=== PATIENT | female | born 1960 | race Caucasian/White ===

== ENCOUNTER → 2017-07-14 | Outpatient (CLI) | payer BC ==
--- NOTE | 2017-07-16 09:47 | MM ---
Reason for exam: screening (asymptomatic). Last mammogram was performed 1 year ago. Physical Findings: A clinical breast exam by your physician is recommended on an annual basis and results should be correlated with mammographic findings. MG Screening Mammo w CAD Bilateral CC and MLO view(s) were taken. Prior study comparison: July 12, 2016, bilateral MG screening mammo w CAD. July 10, 2015, bilateral MG screening mammo w CAD. There are scattered fibroglandular densities. No significant changes when compared with prior studies. ASSESSMENT: Negative, BI-RAD 1 RECOMMENDATION: Routine screening mammogram of both breasts in 1 year.
== END | disposition home or self-care (01) ==
LOC: RADMAMWWP 08:27
PROVIDERS: ATTEND Obstetrics & Gynecology
DX: Z12.31 Encounter for screening mammogram for malignant neoplasm of breast (principal)

== ENCOUNTER → 2018-04-13 | Outpatient (CLI) | payer BC ==
--- NOTE | 2018-04-13 11:26 | CT ---
"EXAMINATION TYPE: CT chest abdomen w con DATE OF EXAM: 04/13/2018 COMPARISON: 08/06/2012 HISTORY: Chronic cough and Rt flank pain CT DLP: 1872.3 mGycm. Automated Exposure Control for Dose Reduction was Utilized. CONTRAST: CT scan of the thorax and abdomen is performed with IV Contrast, patient injected with 100 mL of Isov ue 300. FINDINGS: LUNGS: There is a small loculated pleural effusion versus focal pleural thickening posteriorly along the right upper lobe with thickness measuring 9 mm. There are stable pulmonary nodules on series 5 im age 30 and 26 dating back to 2011, therefore this should be considered benign. No focal consolidation . There is no pleural effusion or pneumothorax seen. The tracheobronchial tree is patent. MEDIASTINUM: There are no greater than 1 cm hilar or mediastinal lymph nodes. No pericardial effusi on is seen. LIVER/GB: There is a new solitary peripherally lobulated complex hepatic mass extending from the hepa tic dome in segment 7 and 8 inferiorly to involve segment 6. There are multiple internal septations a nd solid nodule at the inferior right lateral periphery. This measures up to 6.4 x 6.7 x 8.9 cm in tr ansverse by anterior posterior by craniocaudal dimension. No other appreciable hepatic masses are see n, however there is background hypoattenuation of the hepatic parenchyma diffusely thickened be seen in hepatocellular disease or hepatic steatosis. More focal fatty infiltration is present near the fal ciform ligament. Gallbladder surgically absent. There is no current evidence of large caliber vessel thrombosis. PANCREAS: Mild pancreatic parenchymal atrophy is seen without ductal dilatation. SPLEEN: Nonspecific subcentimeter hypoattenuated splenic lesions are noted, 3 in number. The largest measures 8 mm on series 3 image 60. Small splenule is present anterior to the nenana spleen on series 3 image 49. ADRENALS: No nodularity or thickening is seen. KIDNEYS: Kidneys enhance and excrete symmetrically without hydronephrosis. BOWEL: Few scattered diverticula are noted. No large or small bowel dilatation. LYMPH NODES: Portacaval adenopathy is noted as portacaval lymph nodes measure up to 2.0 cm in short a xis additionally there is aortocaval adenopathy measuring up to 1.1 cm. Gastrohepatic ligament adenop athy measures up to 1.0 cm and there are few prominent lymph nodes in the posterior inferior mediasti nal measuring up to 8 mm. OSSEOUS STRUCTURES: Mild degenerative changes with no suspicious osseous lesion identified. OTHER: There is moderate calcific atheromatous change of the abdominal aorta and its branches. Abdomi nal aorta remains of normal course and caliber in its visualized portions. There is a small fat fille d umbilical hernia superimposed upon diastases recti. IMPRESSION: 1. New large complex solitary right hepatic lobe lesion that should be considered neoplasm until prov en otherwise. Consideration should be given to hepatocellular carcinoma with correlation of serum alp de paz-fetoprotein. Additionally enhanced MRI could further characterize this mass and further degree of confidence could be provided with more accurate LI-RADS classification. Alternatively solitary metast asis from sources such as colon carcinoma, complex adenoma, or infectious etiology (correlate with CB C) could produce this finding. 2. Periportal, aortocaval/retroperitoneal, and gastrohepatic ligament adenopathy with few prominent p osterior mediastinal lymph nodes. A Yellow level critical message alert has been initiated for Santo Sarmiento MD via the [employer] 36 0 | Critical Results System on 04/13/2018 11:17 AM. This message alert has been sent to Santo Sarmiento MD via the preferences provided by the clinician for the receipt of Radiology Critical Findings. [facility] ID [id number]."
== END ==
LOC: RADCTMAIN 08:08
PROVIDERS: ATTEND Family Medicine
DX: K76.9 Liver disease, unspecified (principal); R59.9 Enlarged lymph nodes, unspecified; R05 Cough; R10.9 Unspecified abdominal pain
CPT/HCPCS: 71260; 74160; Q9967

== ENCOUNTER 2018-06-05 10:59 | Day surgery (SDC) | payer BC ==
[2018-06-02 09:32] VITALS: BMI 37.9
[~2018-06-05 10:59] MED LIST: LACTATED RINGERS 1,000 ML IV SCH; LIDOCAINE 1% 20 ML VIAL (10MG/ML) FOR IV START INTRADERMA PRN; Pre Op ABX Message 1 EACH MISC MISCELLANE ONE
--- NOTE | 2018-06-05 11:25 | P.GSHP ---
History of Present Illness H&P Date: 06/05/18 Chief Complaint: Bile duct cancer 57-year-old female here today for Port-A-Cath placement. Recent diagnosis of bile duct cancer. Starting chemotherapy on 06/15. She has not had a previous port. Past Medical History Past Medical History: Cancer, GERD/Reflux, Hypertension, Thyroid Disorder Additional Past Medical History / Comment(s): hemorrhoids, slight scoliosis with back pain, experiencing dry heaves, sarcoidosis, IT band syndrome ab legs , sinus infection currently taking antibiotics History of Any Multi-Drug Resistant Organisms: None Reported Past Surgical History: Cholecystectomy, Tonsillectomy, Tubal Ligation Additional Past Surgical History / Comment(s): abdominal surgery to remove tumor unable to remove at this time, liver biopsy, colonoscopies Past Anesthesia/Blood Transfusion Reactions: No Reported Reaction Smoking Status: Former smoker - Past Family History Sister(s) Family Medical History: Blood Disorder, Pulmonary Embolus Additional Family Medical History / Comment(s): MTHFR Mother Family Medical History: Blood Disorder, Deep Vein Thrombosis (DVT), Pulmonary Embolus Additional Family Medical History / Comment(s): MTHFR Medications and Allergies Home Medications Medication Instructions Recorded Confirmed Type Levothyroxine Sodium 137 mcg PO DAILY 06/02/18 06/02/18 History Metoprolol Tartrate 25 mg PO HS 06/02/18 06/02/18 History Allergies Allergy/AdvReac Type Severity Reaction Status Date / Time sulfamethoxazole Allergy Anaphylaxis Verified 06/02/18 09:08 [From Bactrim] trimethoprim [From Bactrim] Allergy Anaphylaxis Verified 06/02/18 09:08 Surgical - Exam Physical exam: General: Well-developed, well-nourished HEENT: Normocephalic, sclerae nonicteric Abdomen: Nontender, nondistended, midline incision noted Extremities: No edema Neuro: Alert and oriented Assessment and Plan (1) Bile duct cancer Narrative/Plan: Will proceed with Port-A-Cath placement. Risks of bleeding, infection, DVT, pneumothorax, catheter malfunction, anesthesia related complications were discussed. The patient understands and wishes to proceed. Current Visit: Yes Status: Acute Code(s): C24.0 - MALIGNANT NEOPLASM OF EXTRAHEPATIC BILE DUCT SNOMED Code(s): 535451926
[2018-06-05 11:42] VITALS: RESP 16
[2018-06-05] MEDS ORDERED: ONDANSETRON 4 MG/2 ML VIAL IVP ONE (12:13)
[2018-06-05] MEDS ORDERED: HEPARIN SODIUM,PORCINE 5,000 UNIT/ML 1 ML VIAL SQ ONE (12:14)
[2018-06-05] MEDS ORDERED: DEXAMETHASONE SOD PHOSPHATE 10 MG/ML 1 ML VIAL IV ONE (12:14)
[2018-06-05] MEDS ORDERED: ceFAZolin IN SWFI 2 GM/20 ML SYRINGE IVP ONE (12:16)
[2018-06-05] MEDS ORDERED: MIDAZOLAM 2 MG/2 ML VIAL ONE (12:43)
[2018-06-05] MEDS ORDERED: PROPOFOL 10 MG/ML 20 ML VIAL IV ONE (12:43)
[2018-06-05] MEDS ORDERED: fentaNYL (PF) 50 MCG/ML 2 ML AMP ONE (12:43)
[2018-06-05] MEDS ORDERED: LIDOCAINE 1% INJ 10MG/ML (20 ML MDV) ONE (12:43)
[2018-06-05] MEDS ORDERED: LIDOCAINE (PF) 10 MG/ML 2 ML VIAL SQ ONE (13:11)
[2018-06-05] MEDS ORDERED: HEPARIN SODIUM,PORCINE 100 UNIT/ML 5 ML VIAL IV ONE (13:23)
[2018-06-05] MEDS ORDERED: NALOXONE 0.4 MG/ML 1 ML VIAL IV PRN (14:01)
--- NOTE | 2018-06-05 14:02 | P.OP ---
Date of Procedure: 06/05/18 Procedure(s) Performed: PREOPERATIVE DIAGNOSIS: Malnutrition POSTOPERATIVE DIAGNOSIS: Same PROCEDURE: EGD with PEG tube placement SURGEON: Lani EBL: Minimal ANESTHESIA: Sedation COMPLICATIONS: None OPERATIVE PROCEDURE: The patient was placed in the supine position on the endoscopy table. The patient was sedated per anesthesia that time. The Olympus gastroscope was inserted into the oropharynx and passed under direct visualization to the region of the duodenum. No obstruction was seen. The pylorus was widely patent. The stomach was carefully inspected. The stomach was fully insufflated with air. The abdominal wall was inspected. The light was seen shining through the abdominal wall in the left upper quadrant. This site was chosen for PEG tube placement. The area was prepped in the usual sterile fashion. This area was then localized with lidocaine. A small vertical incision was made using the scalpel. The Seldinger needle was advanced into the lumen of the stomach the wire was advanced. The wire was grasped with an endoscopic snare. The wire was pulled through the oropharynx. The catheter was then threaded over the guidewire and the guidewire and catheter were pulled anteriorly until the hub of the PEG tube catheter was seated against the anterior wall the stomach. The circular bolster was applied and tightened down. The endoscope was then readvanced into the stomach. There was no evidence of any bleeding and there was appropriate tightness on the bolster. The catheter was cut appropriately. The dual port feeding adapter was applied. DISPOSITION: Stable to recovery room
[2018-06-05 14:26] VITALS: BP 118/75; PULSE 98
--- NOTE | 2018-06-05 14:36 | XR ---
EXAMINATION TYPE: XR chest 1V confirm line cox monett DATE OF EXAM: 06/05/2018 COMPARISON: Prior chest x-ray 06/16/2012 HISTORY: Status post central venous catheter placement TECHNIQUE: Single frontal view of the chest is obtained. FINDINGS: Interval placement of a right-sided Port-A-Cath with the distal tip overlying superior romelia a cava, there is a right jugular approach. No evident pneumothorax. There is increased density at the right lung base. Right hemidiaphragm. Patient is rotated, heart size is likely stable. IMPRESSION: Right pleural effusion and associated atelectasis or pneumonia has developed in the inte rval, no evident pneumothorax status post central venous catheter placement.
[2018-06-05 15:04] VITALS: TEMP 98.3
--- NOTE | 2018-06-05 16:23 | FL ---
Fluoroscopy HISTORY: Central venous catheter placement 18 seconds fluoroscopy time supplied to the referring clinician. 1 intraoperative C-arm images docum ent the procedure. See dictated report from general surgery.
== END 2018-06-05 15:21 | disposition home or self-care (01) ==
LOC: OR 10:59
PROVIDERS: ATTEND Surgery
DX: C24.0 Malignant neoplasm of extrahepatic bile duct (principal); J90 Pleural effusion, not elsewhere classified; E03.9 Hypothyroidism, unspecified; D86.9 Sarcoidosis, unspecified; K21.9 Gastro-esophageal reflux disease without esophagitis; I10 Essential (primary) hypertension; M41.9 Scoliosis, unspecified; Z79.890 Hormone replacement therapy; Z79.899 Other long term (current) drug therapy; Z79.1 Long term (current) use of non-steroidal anti-inflammatories (NSAID); Z88.1 Allergy status to other antibiotic agents; Z88.2 Allergy status to sulfonamides; Z98.51 Tubal ligation status; Z90.49 Acquired absence of other specified parts of digestive tract; Z87.891 Personal history of nicotine dependence
CPT/HCPCS: 77001; 36561; C1788; J2250; J2001 ×2; J1644; J1642; J1100; J2405; J3010; J2704; J0690

== ENCOUNTER 2018-06-13 14:05 | Inpatient (IN) | payer BC ==
[2018-06-13 15:02] LABS: Anisocytosis Slight; Basophils % (A) 0 %; Eosinophils # (A) 0.2 k/uL (0-0.7); Eosinophils % (A) 1 %; HCT 37.7 % (34.0-46.0); HGB 11.3 gm/dL (11.4-16.0); Hypochromasia Marked; Lymphocytes # (A) 1.2 k/uL (1.0-4.8); Lymphocytes % (A) 6 %; MCH 23.5 pg (25.0-35.0); MCV 78.5 fL (80.0-100.0); Mean Platelet Volume 6.7; Microcytosis Slight; Monocytes # (A) 0.5 k/uL (0-1.0); Monocytes % (A) 3 %; Neutrophils # (A) 17.3 k/uL (1.3-7.7); Neutrophils % (A) 89 %; Platelet Count 525 k/uL (150-450); RBC 4.81 m/uL (3.80-5.40); RDW 17.5 % (11.5-15.5); WBC 19.4 k/uL (3.8-10.6)
[2018-06-13 15:12] LABS: INR 1.3 (<1.2); Partial Thromboplastin Time 22.2 sec (22.0-30.0); Prothrombin Time 12.3 sec (9.0-12.0)
[2018-06-13 15:22] LABS: Creatine Kinase <20 U/L (30-135)
[2018-06-13 15:24] LABS: ALT 29 U/L (9-52); AST 43 U/L (14-36); Albumin 2.9 g/dL (3.5-5.0); Alkaline Phosphatase 179 U/L (38-126); Anion Gap 12 mmol/L; Blood Urea Nitrogen 14 mg/dL (7-17); Calcium 8.6 mg/dL (8.4-10.2); Carbon Dioxide 24 mmol/L (22-30); Chloride 99 mmol/L (98-107); Glucose 138 mg/dL (74-99); Potassium 4.4 mmol/L (3.5-5.1); Sodium 135 mmol/L (137-145); Total Protein 6.8 g/dL (6.3-8.2)
[2018-06-13 15:34] LABS: Creatine Kinase MB <0.2 ng/mL (0.0-2.4); Troponin I <0.012 ng/mL (0.000-0.034)
--- NOTE | 2018-06-13 15:41 | XR ---
EXAMINATION TYPE: XR chest 2V DATE OF EXAM: 06/13/2018 COMPARISON: 06/05/2018 HISTORY: Shortness of breath TECHNIQUE: Frontal and lateral views of the chest are obtained. FINDINGS: There is a persistent moderate right pleural effusion and trace left pleural effusion with associated bibasilar airspace disease, likely compressive atelectasis. Cardia mediastinal silhouette is obscured but similar to the prior. Right-sided Mediport is unchanged in position. Osseous structu res appear intact. IMPRESSION: Similar exam to the prior of 05/28/2018 with moderate right pleural effusion and small le ft pleural effusion and associated bibasilar airspace disease, likely atelectasis.
--- NOTE | 2018-06-13 15:57 | CT ---
EXAMINATION TYPE: CT angio chest DATE OF EXAM: 06/13/2018 COMPARISON: NONE HISTORY: Shortness of breath, history of cancer. CT DLP: 298.7 mGycm. Automated Exposure Control for Dose Reduction was Utilized. CONTRAST: CTA scan of the thorax is performed with IV Contrast, patient injected with 55 mL of Isovue 370, pulm onary embolism protocol. MIP Images are created on CT scanner and reviewed. FINDINGS: LUNGS: There is a moderate right pleural effusion with associated compressive atelectasis. Remainder the lungs are grossly clear. MEDIASTINUM: There is satisfactory enhancement of the pulmonary artery and its branches. There are n onocclusive emboli to the left lower lobe, left upper lobe, and right lower lobe. Beginning in the ri ght and left main pulmonary artery extending to the segmental and subsegmental branches of these lobe s. Main pulmonary artery is nondilated measuring 2.5 cm and the right to left ventricular ratio is no nenlarged. There is no significant reflux of contrast into the inferior vena cava or hepatic veins. T here are no greater than 1 cm hilar or mediastinal lymph nodes. Prominent epiphrenic lymph nodes ashwin ure 9 mm in short axis. Right-sided Mediport is present. No cardiomegaly or pericardial effusion is s een. OTHER: There is suboptimal evaluation of the hepatic parenchyma given the angiographic phase of contr ast however there is a large hepatic lesion measuring at least 8.3 cm seen angiographic hypoattenuati on along the fissure for the falciform ligament. The known splenic lesions are not well-defined on to day's examination given the phase of contrast. IMPRESSION: 1. Exam is positive for pulmonary emboli. Segmental and subsegmental pulmonary emboli beginning in th e right and left main pulmonary arteries and involving the left upper lobe, left lower lobe and right lower lobe are present without CT findings of right heart strain. Findings discussed with ER izabel Dobbs by Dr. Man at 1550 4:00 PM on 06/13/2018. 2. Persistent moderate right pleural effusion with associated compressive atelectasis. 3. Partial visualization of a known large right hepatic mass.
[2018-06-13] MEDS ORDERED: NALOXONE 0.4 MG/ML 1 ML VIAL IV PRN (16:00)
[2018-06-13] MEDS ORDERED: HEPARIN SODIUM,PORCINE 5,000 UNIT/ML 1 ML VIAL IV PRN (16:03)
[2018-06-13] MEDS ORDERED: HEPARIN SODIUM,PORCINE 10,000 UNIT/ML 1 ML VIAL IV ONE (16:03)
--- NOTE | 2018-06-13 16:09 | ED ---
General Adult HPI - General Source: patient Mode of arrival: wheelchair Limitations: no limitations <Walter Dobbs - Last Filed: 06/13/18 16:33> <Linette Decker - Last Filed: 06/13/18 18:06> - General Chief complaint: Shortness of Breath Stated complaint: Vomiting/JOSE (Liver Cancer) Time Seen by Provider: 06/13/18 14:48 - History of Present Illness Initial comments: 57-year-old female past medical history of bile duct cancer diagnosed 05/13/2018, HTN , hypothyroid disorder, dx pleural effusion 06/05 presenting today for chief complaint of shortness of breath for the past week. Patient states that since last week she has had increasing shortness of breath, she states that is at the point now that even standing up is difficult for her. She denies chest pain, chest pain with deep inspiration, hemoptysis. Patient did note that she had pain to palpation of the popliteal area of the right knee. She denies any warmth or redness or palpable mass. Pt denies fever, chills, congestion, upper extremity paresthesia, jaw pain, dizziness, confusion, syncope, nausea, vomiting , epigastric pain or any other associated symptoms. Pt family made her present today for evaluation because of pt worsening shortness of breath. Patient has a strong family history of pulmonary embolism and deep venous thrombosis. Upon arrival patient's oxygen saturation 94% RA, HR 114. Pt does not appear to be in acute respiratory distress. Patient denies any recent =abdominal pain, nausea or vomiting, numbness or tingling, dysuria or hematuria, constipation or diarrhea, headaches or visual changes, or any other complaints. (Linette Decker) - Related Data Home Medications Medication Instructions Recorded Confirmed Levothyroxine Sodium 137 mcg PO DAILY 06/02/18 06/13/18 Metoprolol Tartrate 25 mg PO HS 06/02/18 06/13/18 Calcium Carbonate [Calcium] 600 mg PO DAILY 06/13/18 06/13/18 Fluconazole [Diflucan] 150 mg PO DAILY 06/13/18 06/13/18 Glucosamine Sulfate 500 mg PO DAILY 06/13/18 06/13/18 Krill Oil 500 mg PO DAILY 06/13/18 06/13/18 [place]-3 Fatty Acids/Fish Oil [Fish 1 cap PO DAILY 06/13/18 06/13/18 Oil 1,000 mg Softgel] Allergies Allergy/AdvReac Type Severity Reaction Status Date / Time sulfamethoxazole Allergy Anaphylaxis Verified 06/13/18 16:51 [From Bactrim] trimethoprim [From Bactrim] Allergy Anaphylaxis Verified 06/13/18 16:51 Review of Systems ROS Other: All systems not noted in ROS Statement are negative. <Walter Dobbs - Last Filed: 06/13/18 16:33> ROS Other: All systems not noted in ROS Statement are negative. Constitutional: Reports: night sweats (since diagnosis of cancer). Denies: fever, chills ENT: Denies: ear pain, throat pain Respiratory: Reports: cough. Denies: dyspnea, wheezes, hemoptysis, stridor Cardiovascular: Reports: dyspnea on exertion. Denies: chest pain, palpitations Gastrointestinal: Denies: abdominal pain, nausea, diarrhea, constipation Genitourinary: Denies: urgency, dysuria Musculoskeletal: Reports: back pain (hx scoliosis, chronic low back no changes) Skin: Denies: rash, lesions Neurological: Denies: headache, weakness, numbness, paresthesias, confusion, abnormal gait <Linette Decker - Last Filed: 06/13/18 18:06> ROS Statement: Those systems with pertinent positive or pertinent negative responses have been documented in the HPI. Past Medical History Past Medical History: Cancer, GERD/Reflux, Hypertension, Thyroid Disorder Additional Past Medical History / Comment(s): hemorrhoids, slight scoliosis with back pain, experiencing dry heaves, sarcoidosis, IT band syndrome ab legs , sinus infection currently taking antibiotics History of Any Multi-Drug Resistant Organisms: None Reported Past Surgical History: Cholecystectomy, Tonsillectomy, Tubal Ligation Additional Past Surgical History / Comment(s): abdominal surgery to remove tumor unable to remove at this time, liver biopsy, colonoscopies Past Anesthesia/Blood Transfusion Reactions: No Reported Reaction Past Psychological History: Anxiety Smoking Status: Former smoker Past Alcohol Use History: None Reported Past Drug Use History: None Reported - Past Family History Sister(s) Family Medical History: Blood Disorder, Pulmonary Embolus Additional Family Medical History / Comment(s): MTHFR Mother Family Medical History: Blood Disorder, Deep Vein Thrombosis (DVT), Pulmonary Embolus Additional Family Medical History / Comment(s): MTHFR <Walter Dobbs - Last Filed: 06/13/18 16:33> General Exam Limitations: no limitations <Walter Dobbs - Last Filed: 06/13/18 16:33> <Linette Decker - Last Filed: 06/13/18 18:06> - General Exam Comments Initial Comments: General: The patient is awake and alert, in no distress, and does not appear acutely ill. Eye: Pupils are equal, round and reactive to light, extra-ocular movements are intact. No nystagmus. There is normal conjunctiva bilaterally. No signs of icterus. Ears, nose, mouth and throat: There are moist mucous membranes and no oral lesions. Neck: The neck is supple, there is no tenderness or JVD. Cardiovascular: There is a regular rate and rhythm. No murmur, rub or gallop is appreciated. Respiratory: Lungs are clear to auscultation, respirations are non-labored, breath sounds are equal. No wheezes, stridor, rales, or rhonchi. Musculoskeletal: Normal ROM, no tenderness. Strength 5/5. Sensation intact. Radial pulses equal bilaterally 2+. Neurological: A&O x 3. CN II-XII intact, There are no obvious motor or sensory deficits. Coordination appears grossly intact. Speech is normal. Skin: Skin is warm and dry and no rashes or lesions are noted. Psychiatric: Cooperative, appropriate mood & affect, normal judgment. (Linette Decker) Course <Walter Dobbs - Last Filed: 06/13/18 16:33> <Linette Decker - Last Filed: 06/13/18 18:06> Vital Signs 06/13/18 06/13/18 14:23 16:35 Temperature 99.8 F H Pulse Rate 114 H 110 H Respiratory 20 18 Rate Blood Pressure 131/71 142/68 O2 Sat by Pulse 94 L 94 L Oximetry - Reevaluation(s) Reevaluation #1: 06/13/18 16:09 Patient reevaluated by myself, Dr. Dobbs. Patient resting comfortably at bedside. I did review and agree. With PA findings. This includes all diagnostic interpretations and treatment plan. Patient is updated on results and plan. Dr. Valdivia has been paged for admission for Dr. Coloraod. 06/13/18 16:33 Case was discussed in detail with Dr. Lutz, who will admit patient however would like this cleared through pulmonary first to make sure patient is not a candidate for thrombectomy. Case was discussed with Dr. Hewitt who does not feel patient needs thrombectomy secondary to low burden load of pulmonary embolism and no evidence of heart strain. He agrees with heparinization at this time. He will consult. (Walter Dobbs) EKG Findings - EKG Comments: EKG Findings:: Ventricular rate 117 bpm, SD interval 120 ms, QRS duration 76 ms , QT/QTC 300/418 ms this appears to be sinus tachycardia there is no evidence of ST elevation or specific T-wave inversion. No noted arrhythmia or bundle branch block. Reviewd by Dr. Dobbs/Linette Decker PA-C <Linette Decker - Last Filed: 06/13/18 18:06> Medical Decision Making - Lab Data Result diagrams: 06/13/18 14:30 06/13/18 14:30 <Walter Dobbs - Last Filed: 06/13/18 16:33> - Lab Data Result diagrams: 06/13/18 14:30 06/13/18 14:30 <Linette Decker - Last Filed: 06/13/18 18:06> - Medical Decision Making 57yo female with hx of cancer and shortness of breath concerning for pulmonary embolism. Pt hemodynamically stable with no signs of acute respiratory distress. VS stable. EKG obtained pt placed on telemetry and O2 via nasal cannula 2L. Labs as noted above. CXR revealed right sided pleural effusion consistent with findings on CXR 05/28/18, pt aware of findings and following with primary provider. CTA revealed segmental and subsegmental pulmonary emboli beginning in the right and left main pulmonary arteries involving the left upper lobe, left lower lobe and the right lower lobe there are no CT findings of right heart strain. Findings were discussed with Dr. Dobbs at 1550. Findings discussed with patient. Pt was admitted to Dr. Flores with consults of pulmonology, Dr Hewitt. Dr Hewitt returned page at 16:30 he did not recommend transfer for embolectomy at this time, no further orders. Pt was started on high dose heparin. Pt admitted to [facility] care in stable condition. (Linette Decker) - Lab Data Lab Results 06/13/18 06/13/18 06/13/18 Range/Units 14:30 14:30 14:30 WBC 19.4 H (3.8-10.6) k/uL RBC 4.81 (3.80-5.40) m/uL Hgb 11.3 L (11.4-16.0) gm/dL Hct 37.7 (34.0-46.0) % MCV 78.5 L (80.0-100.0) fL MCH 23.5 L (25.0-35.0) pg MCHC 30.0 L (31.0-37.0) g/dL RDW 17.5 H (11.5-15.5) % Plt Count 525 H (150-450) k/uL Neutrophils % 89 % Lymphocytes % 6 % Monocytes % 3 % Eosinophils % 1 % Basophils % 0 % Neutrophils # 17.3 H (1.3-7.7) k/uL Lymphocytes # 1.2 (1.0-4.8) k/uL Monocytes # 0.5 (0-1.0) k/uL Eosinophils # 0.2 (0-0.7) k/uL Basophils # 0.0 (0-0.2) k/uL Hypochromasia Marked Anisocytosis Slight Microcytosis Slight PT (9.0-12.0) sec INR (<1.2) APTT (22.0-30.0) sec Sodium 135 L (137-145) mmol/L Potassium 4.4 (3.5-5.1) mmol/L Chloride 99 (98-107) mmol/L Carbon Dioxide 24 (22-30) mmol/L Anion Gap 12 mmol/L BUN 14 (7-17) mg/dL Creatinine 0.58 (0.52-1.04) mg/dL Est GFR (CKD-EPI)AfAm >90 (>60 ml/min/1.73 sqM) Est GFR (CKD-EPI)NonAf >90 (>60 ml/min/1.73 sqM) Glucose 138 H (74-99) mg/dL Calcium 8.6 (8.4-10.2) mg/dL Total Bilirubin 1.0 (0.2-1.3) mg/dL AST 43 H (14-36) U/L ALT 29 (9-52) U/L Alkaline Phosphatase 179 H (38-126) U/L Total Creatine Kinase <20 L (30-135) U/L CK-MB (CK-2) <0.2 (0.0-2.4) ng/mL CK-MB (CK-2) Rel Index Troponin I <0.012 (0.000-0.034) ng/mL Total Protein 6.8 (6.3-8.2) g/dL Albumin 2.9 L (3.5-5.0) g/dL 06/13/18 Range/Units 14:30 WBC (3.8-10.6) k/uL RBC (3.80-5.40) m/uL Hgb (11.4-16.0) gm/dL Hct (34.0-46.0) % MCV (80.0-100.0) fL MCH (25.0-35.0) pg MCHC (31.0-37.0) g/dL RDW (11.5-15.5) % Plt Count (150-450) k/uL Neutrophils % % Lymphocytes % % Monocytes % % Eosinophils % % Basophils % % Neutrophils # (1.3-7.7) k/uL Lymphocytes # (1.0-4.8) k/uL Monocytes # (0-1.0) k/uL Eosinophils # (0-0.7) k/uL Basophils # (0-0.2) k/uL Hypochromasia Anisocytosis Microcytosis PT 12.3 H (9.0-12.0) sec INR 1.3 H (<1.2) APTT 22.2 (22.0-30.0) sec Sodium (137-145) mmol/L Potassium (3.5-5.1) mmol/L Chloride (98-107) mmol/L Carbon Dioxide (22-30) mmol/L Anion Gap mmol/L BUN (7-17) mg/dL Creatinine (0.52-1.04) mg/dL Est GFR (CKD-EPI)AfAm (>60 ml/min/1.73 sqM) Est GFR (CKD-EPI)NonAf (>60 ml/min/1.73 sqM) Glucose (74-99) mg/dL Calcium (8.4-10.2) mg/dL Total Bilirubin (0.2-1.3) mg/dL AST (14-36) U/L ALT (9-52) U/L Alkaline Phosphatase (38-126) U/L Total Creatine Kinase (30-135) U/L CK-MB (CK-2) (0.0-2.4) ng/mL CK-MB (CK-2) Rel Index Troponin I (0.000-0.034) ng/mL Total Protein (6.3-8.2) g/dL Albumin (3.5-5.0) g/dL Disposition <Walter Dobbs - Last Filed: 06/13/18 16:33> Is patient prescribed a controlled substance at d/c from ED?: No Time of Disposition: 16:33 Decision to Admit Reason: Admit from EC Decision Date: 06/13/18 Decision Time: 16:33 <Linette Decker - Last Filed: 06/13/18 18:06> Clinical Impression: Pulmonary embolism, Pleural effusion, Bile duct cancer Disposition: ADMITTED IP TO THIS HOSP Condition: Stable
[2018-06-13] MEDS: SODIUM CHLORIDE 0.9% 1,000 ML IV SCH (16:25)
[2018-06-13] MEDS: HEPARIN SOD,PORK IN 0.45% NACL 25,000 UNIT in 0.45% NACL 1 500ML.BAG IV SCH (16:32)
[2018-06-13] MEDS: IBUPROFEN 600 MG TAB PO PRN (19:43)
[2018-06-13] MEDS ORDERED: METOPROLOL TARTRATE 25 MG TAB PO SCH (21:45)
[2018-06-13] MEDS: ALPRAZolam 0.25 MG TAB PO PRN (21:56)
[2018-06-14] MEDS: HEPARIN SOD,PORK IN 0.45% NACL 25,000 UNIT in 0.45% NACL 1 500ML.BAG IV SCH (02:47)
[2018-06-14] MEDS: LEVOTHYROXINE 137 MCG TAB PO SCH (06:27)
[2018-06-14 07:08] LABS: Anisocytosis Slight; Basophils # (A) 0.1 k/uL (0-0.2); Basophils % (A) 1 %; Eosinophils # (A) 0.7 k/uL (0-0.7); Eosinophils % (A) 4 %; HCT 38.5 % (34.0-46.0); HGB 11.2 gm/dL (11.4-16.0); Hypochromasia Marked; Lymphocytes # (A) 1.5 k/uL (1.0-4.8); Lymphocytes % (A) 8 %; MCH 23.6 pg (25.0-35.0); MCHC 29.1 g/dL (31.0-37.0); MCV 81.1 fL (80.0-100.0); Microcytosis Slight; Monocytes # (A) 0.6 k/uL (0-1.0); Monocytes % (A) 3 %; Neutrophils # (A) 15.4 k/uL (1.3-7.7); Neutrophils % (A) 83 %; Platelet Count 483 k/uL (150-450); RBC 4.74 m/uL (3.80-5.40); RDW 17.4 % (11.5-15.5); WBC 18.5 k/uL (3.8-10.6)
[2018-06-14] MEDS ORDERED: RIVAROXABAN 15 MG TAB PO SCH (12:00)
--- NOTE | 2018-06-14 12:01 | P.HPIM ---
History of Present Illness H&P Date: 06/14/18 This is a 57-year-old female who presented to the ER complaining of progressive shortness of breath. She was recently diagnosed with bile duct carcinoma. Currently being treated by Dr. Duff. She had surgery for possible removal of tumor, however, they were unable to remove the tumor, liver biopsy was performed during that time and also two lymph nodes were removed. She also had a port placement done by Dr. Garibay for the initiation of chemotherapy. Patient began having shortness of breath since the end of May. Patient states that the shortness of breath has progressively gotten worse, with the worst happening yesterday evening where she was unable to stand because of the shortness of breath. Patient was being treated outpatient for sinus infection during that time. Patient presented to the emergency department where she was found to have a pulmonary embolism. The CT showed segmental and subsegmental pulmonary emboli beginning in the right and left main pulmonary arteries involving the left upper lobe, left lower lobe, and right lower lobe. Persistent moderate right pleural effusion was noted. Partial visualization of known large right hepatic mass. Patient presents this morning without any complaints of difficulty breathing. Multiple sinus pauses noted on telemetry during the night. Patient denies any dizziness, and couple episodes, or loss of consciousness. She also denies any cough, chest pain, or palpitations. Review of Systems All systems: negative Constitutional: Denies fatigue, Denies chills, Denies fever Eyes: denies blurred vision, denies pain Ears, nose, mouth and throat: Denies headache, Denies sore throat Cardiovascular: Denies chest pain, Denies lightheadedness, Denies shortness of breath, Denies syncope, Respiratory: Reports dyspnea on exertion, Denies cough, Denies cough with sputum , Denies dyspnea, Denies excessive sputum, Denies hemoptysis, Denies home oxygen , Denies wheezing Gastrointestinal: Denies abdominal pain, Denies diarrhea, Denies nausea, Denies vomiting Genitourinary: Denies dysuria Musculoskeletal: Denies myalgias, denies warmth, edema, pain to lower extremities Integumentary: Denies pruritus, Denies rash Neurological: Denies numbness, Denies weakness Psychiatric: Reports anxiety since diagnosis, Denies depression Endocrine: Denies fatigue, Denies weight change Past Medical History Past Medical History: Cancer (bile duct), GERD/Reflux, Hypertension, Thyroid Disorder (hypothyroid) Additional Past Medical History / Comment(s): liver bile duct CA, hemorrhoids, slight scoliosis with back pain, experiencing dry heaves, sarcoidosis (2010), IT band syndrome ab legs, sinus infection currently taking antibiotics History of Any Multi-Drug Resistant Organisms: None Reported Past Surgical History: Cholecystectomy, Tonsillectomy, Tubal Ligation Additional Past Surgical History / Comment(s): abdominal surgery to remove tumor unable to remove at this time, liver biopsy, colonoscopies Past Anesthesia/Blood Transfusion Reactions: No Reported Reaction Past Psychological History: Anxiety (since diagnosis) Smoking Status: Former smoker Past Alcohol Use History: None Reported Additional Past Alcohol Use History / Comment(s): smoked on and off 10 years 1ppd quit 16 years ago Past Drug Use History: None Reported Additional History: . Works as a manager title for [employer] - Past Family History Sister(s) Family Medical History: Blood Disorder, Pulmonary Embolus Additional Family Medical History / Comment(s): MTHFR Mother Family Medical History: Blood Disorder, Deep Vein Thrombosis (DVT), Pulmonary Embolus Additional Family Medical History / Comment(s): 2 healthy children Father Family Medical History: Coronary Artery Disease (CAD) Medications and Allergies Home Medications Medication Instructions Recorded Confirmed Type Levothyroxine Sodium 137 mcg PO DAILY 06/02/18 06/13/18 History Metoprolol Tartrate 25 mg PO HS 06/02/18 06/13/18 History Calcium Carbonate [Calcium] 600 mg PO DAILY 06/13/18 06/13/18 History Fluconazole [Diflucan] 150 mg PO DAILY 06/13/18 06/13/18 History Glucosamine Sulfate 500 mg PO DAILY 06/13/18 06/13/18 History Krill Oil 500 mg PO DAILY 06/13/18 06/13/18 History [place]-3 Fatty Acids/Fish Oil [Fish 1 cap PO DAILY 06/13/18 06/13/18 History Oil 1,000 mg Softgel] Allergies Allergy/AdvReac Type Severity Reaction Status Date / Time sulfamethoxazole Allergy Anaphylaxis Verified 06/13/18 16:51 [From Bactrim] trimethoprim [From Bactrim] Allergy Anaphylaxis Verified 06/13/18 16:51 Physical Exam Vitals: Vital Signs Temp Pulse Pulse Resp BP BP Pulse Ox 06/14/18 11:13 77 17 110/60 97 06/14/18 08:00 98.3 F 78 17 109/55 98 06/14/18 07:42 18 06/14/18 03:49 77 18 06/14/18 03:48 97.7 F 77 18 111/51 96 06/14/18 00:00 98.8 F 94 18 111/71 91 L 06/13/18 21:00 99.4 F 107 H 18 123/61 92 L 06/13/18 20:00 107 H 18 06/13/18 19:35 101.6 F H 109 H 18 155/61 98 06/13/18 18:07 116 H 22 138/66 96 06/13/18 16:35 110 H 18 142/68 94 L 06/13/18 14:23 99.8 F H 114 H 20 131/71 94 L Intake and Output 06/13/18 06/14/18 06/14/18 22:59 06:59 14:59 Intake Total 368.18 186.185 Balance 368.18 186.185 Intake: Intake, IV Titration 368.18 186.185 Amount Heparin Sod,Pork in 0.45% 368.18 186.185 NaCl 25,000 unit In 0.45 % NaCl 1 500ml.bag @ 18 UNITS/KG/HR 35.92 mls/hr IV .[id number] [facility] Rx#: [id number] Other: Voiding Method Toilet Toilet Toilet Bedside Commode Bedside Commode Bedside Commode # Voids 1 1 Weight 99.79 kg 99.1 kg Gen: This is a 57-year-old female, in no acute distress, cooperative, obese HEENT: Head is atraumatic, normocephalic. Pupils equal, round. Sclerae is anicteric. NECK: Supple. No JVD. No lymphadenopathy. No thyromegaly. LUNGS: Clear to auscultation. No wheezes or rhonchi. No intercostal retractions. HEART: Regular rate and rhythm. No murmur. ABDOMEN: Soft. Bowel sounds are present. No masses. No tenderness. EXTREMITIES: No pedal edema. No calf tenderness. NEUROLOGICAL: Patient is awake, alert and oriented x3. Cranial nerves 2 through 12 are grossly intact. Results CBC & Chem 7: 06/14/18 06:15 06/13/18 14:30 Labs: Abnormal Lab Results - Last 24 Hours (Table) 06/13/18 06/13/18 06/13/18 Range/Units 14:30 14:30 14:30 WBC 19.4 H (3.8-10.6) k/uL Hgb 11.3 L (11.4-16.0) gm/dL MCV 78.5 L (80.0-100.0) fL MCH 23.5 L (25.0-35.0) pg MCHC 30.0 L (31.0-37.0) g/dL RDW 17.5 H (11.5-15.5) % Plt Count 525 H (150-450) k/uL Neutrophils # 17.3 H (1.3-7.7) k/uL PT (9.0-12.0) sec INR (<1.2) APTT (22.0-30.0) sec Sodium 135 L (137-145) mmol/L Glucose 138 H (74-99) mg/dL AST 43 H (14-36) U/L Alkaline Phosphatase 179 H (38-126) U/L Total Creatine Kinase <20 L (30-135) U/L Albumin 2.9 L (3.5-5.0) g/dL 06/13/18 06/13/18 06/14/18 Range/Units 14:30 23:03 06:15 WBC 18.5 H (3.8-10.6) k/uL Hgb 11.2 L (11.4-16.0) gm/dL MCV (80.0-100.0) fL MCH 23.6 L (25.0-35.0) pg MCHC 29.1 L (31.0-37.0) g/dL RDW 17.4 H (11.5-15.5) % Plt Count 483 H (150-450) k/uL Neutrophils # 15.4 H (1.3-7.7) k/uL PT 12.3 H (9.0-12.0) sec INR 1.3 H (<1.2) APTT 46.2 H (22.0-30.0) sec Sodium (137-145) mmol/L Glucose (74-99) mg/dL AST (14-36) U/L Alkaline Phosphatase (38-126) U/L Total Creatine Kinase (30-135) U/L Albumin (3.5-5.0) g/dL 06/14/18 Range/Units 06:36 WBC (3.8-10.6) k/uL Hgb (11.4-16.0) gm/dL MCV (80.0-100.0) fL MCH (25.0-35.0) pg MCHC (31.0-37.0) g/dL RDW (11.5-15.5) % Plt Count (150-450) k/uL Neutrophils # (1.3-7.7) k/uL PT (9.0-12.0) sec INR (<1.2) APTT 110.9 H* (22.0-30.0) sec Sodium (137-145) mmol/L Glucose (74-99) mg/dL AST (14-36) U/L Alkaline Phosphatase (38-126) U/L Total Creatine Kinase (30-135) U/L Albumin (3.5-5.0) g/dL Thrombosis Risk Factor Assmnt - DVT/VTE Prophylaxis DVT/VTE Prophylaxis: Pharmacologic Prophylaxis ordered - Choose All That Apply Any of the Below Risk Factors Present?: No Other Risk Factors: Yes Each Risk Factor Represents 2 Points: Age 61-74 years Other congenital or acquired thrombophilia - If yes, enter type in comment: Yes Each Risk Factor Represents 5 Points: Major surgery lasting over 3 hours Thrombosis Risk Factor Assessment Total Risk Factor Score: 7 Thrombosis Risk Factor Assessment Level: High Risk Assessment and Plan Plan: 1. Pulmonary embolism secondary to physiology of disease progression versus coagulopathy, continue on IV heparin, consult oncology, consult pulmonology, obtain venous Doppler of bilateral lower extremities 2. Bile duct carcinoma, consult oncology to initiate treatment plan as appropriate 3. Hypertension, continue to monitor blood pressures 4. Hypothyroidism, continue Synthroid 137 mcg daily 5. Gastroesophageal reflux disease, Pepcid 20 mg when necessary 6. Anxiety, continue Xanax 0.25 mg twice a day when necessary 7. Sarcoidosis, stable 8. GI prophylaxis, ordered Pepcid 20 mg when necessary 9. DVT prophylaxis, IV heparin Patient will be admitted to the hospital for a minimum of 2 nights day Discharge plan: Most likely home with self-care The above impression and plan of care has been discussed in directed by the signing physician. Gabriela Jc nurse practitioner acting as scribe for signing physician.
--- NOTE | 2018-06-14 12:30 | US ---
EXAMINATION TYPE: US venous doppler duplex LE DATE OF EXAM: 06/14/2018 11:17 AM COMPARISON: NONE CLINICAL HISTORY: pulmonary embolism. PE, chest pain, SOB, patient on blood thinners, exam done yeison ble SIDE PERFORMED: Bilateral TECHNIQUE: The lower extremity deep venous system is examined utilizing real time linear array sonog jonel with graded compression, doppler sonography and color-flow sonography. VESSELS IMAGED: External Iliac Vein (EIV) Common Femoral Vein Deep Femoral Vein Greater Saphenous Vein * Femoral Vein Popliteal Vein Small Saphenous Vein * Proximal Calf Veins (* superficial vessels) Right Leg: Positive for DVT right proximal popliteal vein through proximal calf veins Left Leg: Positive for DVT non occluding thrombus seen at left proximal femoral vein, positive for S VT left greater saphenous vein No popliteal fossa lesion is seen. IMPRESSION: THIS EXAMINATION IS POSITIVE FOR DVT IN BOTH LEGS.
[2018-06-14] MEDS ORDERED: HEPARIN SOD,PORK IN 0.45% NACL 25,000 UNIT in 0.45% NACL 1 500ML.BAG IV SCH (13:00)
--- NOTE | 2018-06-14 13:39 | P.CNPUL ---
History of Present Illness Consult date: 06/14/18 Reason for consult: dyspnea, pulmonary embolism, abnormal CXR/CT Chief complaint: Pulmonary emboli History of present illness: This is a 57-year-old white female patient of Dr. Thomas who presented to the emergency department on 06/13/2018 at 1400 for evaluation of shortness of breath, she has been increasing for a period of last week. She denied any chest pain, denied any pleurisy, denied hemoptysis. 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 In early April patient had a urinary tract infection was treated with Bactrim, and later therapy was switched to Macrobid in view of patient developing a reaction. Patient's had persistent night sweats , and on May 02 patient also started having persistent bad pains on the right side of the abdomen. CAT scan of the chest and abdomen was completed, and showed a new large complex solitary right hepatic lobe lesion that was highly suspicious for neoplasm. Patient was seen by Dr. Wilde, he underwent a fine-needle biopsy by interventional radiology at the [facility] and the biopsies were reportedly positive for malignant cells. Patient was then referred to [facility] for surgical intervention and possible removal of the tumor, which was unsuccessful due to local spreading. Patient had a Port-A-Cath placed by Dr. Garibay on , and patient is set to start chemotherapy sometime next week. Chest x-ray was completed emergency department which showed a moderately sized right pleural effusion and small left pleural effusion with associated bibasilar atelectasis. CT angiogram showed non-occlusive emboli to the left lower lobe, left upper lobe, and right lower lobe. Segmental and subsegmental pulmonary emboli in the left main and right pulmonary arteries. No is no evidence of right heart strain. Again moderate-sized right pleural effusion was redemonstrated with adjacent compressive atelectasis. Large right hepatic mass partially visualized on the CT angios of the chest. Labs showed WBC of 19.4, hemoglobin of 11.3, INR 1.3, electrolytes and renal profile were unremarkable, AST was 43, ALT was 29, alk phos was 179, troponin was negative. EKG showed sinus tachycardia with a rate of 117 BPM. Patient states she has a MTHFR gene mutation, which was also positive in her mother, and her sister. Her mother on lifelong anticoagulation for history of pulmonary embolisms. Other history includes hypertension, hypothyroidism, GERD/reflux, anxiety, former nicotine dependence, IT band syndrom of bilateral legs. Patient did have a fever of 101.6F on presentation , he has been afebrile since. Slightly tachycardic initially with a rate in the 107 BPM, sinus mechanism, last night patient was noted to have pauses, and bradycardia. This morning her heart rate is 77, is hemodynamically stable, denies any acute distress, denies any shortness of breath, or chest pain, no pleurisy. Lung sounds are clear to auscultation. She has been started on IV heparin. Venous Doppler bilateral lower extremities is pending. Review of Systems All systems: negative Constitutional: Denies chills, Denies fever Eyes: denies blurred vision, denies pain Ears, nose, mouth and throat: Denies headache, Denies sore throat Cardiovascular: Denies chest pain, Denies shortness of breath Respiratory: Denies cough Gastrointestinal: Reports bloating, Denies abdominal pain, Denies diarrhea, Denies nausea, Denies vomiting Genitourinary: Denies dysuria, Denies hematuria Musculoskeletal: Denies myalgias Integumentary: Denies pruritus, Denies rash Neurological: Denies numbness, Denies weakness Psychiatric: Denies anxiety, Denies depression Endocrine: Denies fatigue, Denies weight change Past Medical History Past Medical History: Cancer (bile duct), GERD/Reflux, Hypertension, Thyroid Disorder (hypothyroid) Additional Past Medical History / Comment(s): liver bile duct CA, hemorrhoids, slight scoliosis with back pain, experiencing dry heaves, sarcoidosis (2010), IT band syndrome ab legs, sinus infection currently taking antibiotics History of Any Multi-Drug Resistant Organisms: None Reported Past Surgical History: Cholecystectomy, Tonsillectomy, Tubal Ligation Additional Past Surgical History / Comment(s): abdominal surgery to remove tumor unable to remove at this time, liver biopsy, colonoscopies Past Anesthesia/Blood Transfusion Reactions: No Reported Reaction Past Psychological History: Anxiety (since diagnosis) Smoking Status: Former smoker Past Alcohol Use History: None Reported Additional Past Alcohol Use History / Comment(s): smoked on and off 10 years 1ppd quit 16 years ago Past Drug Use History: None Reported - Past Family History Sister(s) Family Medical History: Blood Disorder, Pulmonary Embolus Additional Family Medical History / Comment(s): MTHFR Mother Family Medical History: Blood Disorder, Deep Vein Thrombosis (DVT), Pulmonary Embolus Additional Family Medical History / Comment(s): 2 healthy children Father Family Medical History: Coronary Artery Disease (CAD) Medications and Allergies Home Medications Medication Instructions Recorded Confirmed Type Levothyroxine Sodium 137 mcg PO DAILY 06/02/18 06/13/18 History Metoprolol Tartrate 25 mg PO HS 06/02/18 06/13/18 History Calcium Carbonate [Calcium] 600 mg PO DAILY 06/13/18 06/13/18 History Fluconazole [Diflucan] 150 mg PO DAILY 06/13/18 06/13/18 History Glucosamine Sulfate 500 mg PO DAILY 06/13/18 06/13/18 History Krill Oil 500 mg PO DAILY 06/13/18 06/13/18 History [place]-3 Fatty Acids/Fish Oil [Fish 1 cap PO DAILY 06/13/18 06/13/18 History Oil 1,000 mg Softgel] Allergies Allergy/AdvReac Type Severity Reaction Status Date / Time sulfamethoxazole Allergy Anaphylaxis Verified 06/13/18 16:51 [From Bactrim] trimethoprim [From Bactrim] Allergy Anaphylaxis Verified 06/13/18 16:51 Physical Exam Vitals: Vital Signs Temp Pulse Pulse Resp BP BP Pulse Ox 06/14/18 11:13 77 17 110/60 97 06/14/18 08:00 98.3 F 78 17 109/55 98 06/14/18 07:42 18 06/14/18 03:49 77 18 06/14/18 03:48 97.7 F 77 18 111/51 96 06/14/18 00:00 98.8 F 94 18 111/71 91 L 06/13/18 21:00 99.4 F 107 H 18 123/61 92 L 06/13/18 20:00 107 H 18 06/13/18 19:35 101.6 F H 109 H 18 155/61 98 06/13/18 18:07 116 H 22 138/66 96 06/13/18 16:35 110 H 18 142/68 94 L 06/13/18 14:23 99.8 F H 114 H 20 131/71 94 L Intake and Output 1006/14/18 06/14/18 22:59 06:59 14:59 Intake Total 368.18 186.185 Balance 368.18 186.185 Intake: Intake, IV Titration 368.18 186.185 Amount Heparin Sod,Pork in 0.45% 368.18 186.185 NaCl 25,000 unit In 0.45 % NaCl 1 500ml.bag @ 18 UNITS/KG/HR 35.92 mls/hr IV .[id number] [facility] Rx#: [id number] Other: Voiding Method Toilet Toilet Toilet Bedside Commode Bedside Commode Bedside Commode # Voids 1 1 Weight 99.79 kg 99.1 kg GENERAL EXAM: Alert, pleasant, 57-year-old white female comfortable in no apparent distress. HEAD: Normocephalic/atraumatic. EYES: Normal reaction of pupils, equal size. Conjunctiva pink, sclera white. NOSE: Clear with pink turbinates. THROAT: No erythema or exudates. NECK: No masses, no JVD, no thyroid enlargement, no adenopathy. CHEST: No chest wall deformity. Symmetrical expansion. LUNGS: Equal air entry with diminished breath sounds right lower lobe, crackles , no wheezes no rales CVS: Regular rate and rhythm, normal S1 and S2, no gallops, no murmurs, no rubs ABDOMEN: Soft, slightly tender over right upper quadrant, there is a healing surgical scar on the right side of the abdomen. No hepatosplenomegaly, normal bowel sounds, no guarding or rigidity. EXTREMITIES: No clubbing, mild nonpitting edema in bilateral lower extremities edema, no cyanosis, 2+ pulses and upper and lower extremities. MUSCULOSKELETAL: Muscle strength and tone normal. SPINE: No scoliosis or deformity SKIN: No rashes CENTRAL NERVOUS SYSTEM: Alert and oriented -3. No focal deficits, tone is normal in all 4 extremities. PSYCHIATRIC: Alert and oriented -3. Appropriate affect. Intact judgment and insight. Results - Laboratory Findings CBC and BMP: 06/14/18 06:15 06/13/18 14:30 PT/INR, D-dimer PT 12.3 sec (9.0-12.0) H 06/13/18 14:30 INR 1.3 (<1.2) H 06/13/18 14:30 Abnormal lab findings: Abnormal Labs 06/13/18 06/13/18 06/13/18 14:30 14:30 14:30 WBC 19.4 H Hgb 11.3 L MCV 78.5 L MCH 23.5 L MCHC 30.0 L RDW 17.5 H Plt Count 525 H Neutrophils # 17.3 H PT INR APTT Sodium 135 L Glucose 138 H AST 43 H Alkaline Phosphatase 179 H Total Creatine Kinase <20 L Albumin 2.9 L 06/13/18 06/13/18 06/14/18 14:30 23:03 06:15 WBC 18.5 H Hgb 11.2 L MCV MCH 23.6 L MCHC 29.1 L RDW 17.4 H Plt Count 483 H Neutrophils # 15.4 H PT 12.3 H INR 1.3 H APTT 46.2 H Sodium Glucose AST Alkaline Phosphatase Total Creatine Kinase Albumin 06/14/18 06:36 WBC Hgb MCV MCH MCHC RDW Plt Count Neutrophils # PT INR APTT 110.9 H* Sodium Glucose AST Alkaline Phosphatase Total Creatine Kinase Albumin - Diagnostic Findings Chest x-ray: report reviewed, image reviewed CT scan - chest: report reviewed, image reviewed U/S of Legs: report reviewed, image reviewed Assessment and Plan Plan: Assessment: #1. Acute bilateral pulmonary emboli, in segmental and subsegmental branches #2. Acute DVTs in bilateral lower extremities, right proximal popliteal vein, and left proximal femoral vein #3. Dyspnea related to the pulmonary emboli, CT angios chest also showed moderately sized right-sided pleural effusion #4. Recent diagnosis of common bile duct/cholangiocarcinoma, patient underwent a fine-needle aspiration biopsy at [facility], which were reportedly positive for malignant cells. Patient is status post surgical intervention with attempt to remove the tumor, which was unsuccessful. This was done at [facility] by Dr. Bazan, and there was reportedly local spread of the malignancy. Patient also with Dr. Duff and she is supposed to start immunotherapy or chemotherapy sometime next week #5. History of MTHFR gene mutation, patient has a strong family history of pulmonary embolisms and DVTs in both of her mother and sister #6. Leukocytosis, rule out infectious etiology #7. Hypertension #8. Hypothyroidism #9. GERD/reflux #10. Anxiety #11. Former nicotine dependence in remission Plan: We will start Xarelto, we may discontinue heparin drip. Patient is awaiting to be seen by Dr. Duff. She will need lifelong anticoagulation. No major difficulty breathing, she is maintaining stable oxygenation on 2 L per nasal cannula, she has a small to moderate right-sided pleural effusion, which we will monitor for now, if her breathing becomes worse or pleural fluid increases we will consider thoracentesis. We'll continue to monitor I performed a history & physical examination of the patient and discussed their management with my nurse practitioner, Florina Doty. I reviewed the nurse practitioner's note and agree with the documented findings and plan of care. Lung sounds are positive for diminished breath sounds over right lower lobe. The findings and the impression was discussed with the patient. I attest to the documentation by the nurse practitioner. Time with Patient: Greater than 30
--- NOTE | 2018-06-14 13:52 | CONS ---
CONSULTATION CHIEF COMPLAINT: Bradycardia. This is a 57-year-old lady with history of hypothyroidism, hepatocellular carcinoma who is admitted to the hospital with vomiting and difficulty breathing. The patient underwent workup. CT scan shows pulmonary embolic. Patient is currently on intravenous heparin. Last night, the patient had episodes of sinus bradycardia with heart rates dropping into the 30s. Due to this, cardiology had been consulted. The patient denies chest pain, dizziness or syncope. She is on metoprolol 25 mg at bedtime. I believe the bradycardia is probably related to this and I am going to stop that. There is no prior history of coronary artery disease or congestive heart failure. PAST MEDICAL HISTORY: Significant for hypothyroidism. CURRENT MEDICATIONS: Include Synthroid, fluconazole, calcium, fish oil. ALLERGIES: ALLERGIES TO BACTRIM. FAMILY HISTORY: Negative for premature coronary artery disease. SOCIAL HISTORY: Negative for current smoking, EtOH abuse, or drug abuse. REVIEW OF SYSTEMS: HEENT is unremarkable. Cardiac as described above. Respiratory as described above. GI negative. Genitourinary negative. Allergy/Immunology: Negative. Skin negative. Musculoskeletal negative. ENDOCRINE negative. Derm: Negative. Constitutional negative. Oncological significant for hepatocellular cancer. EXAM: Patient is comfortable at rest. Heart rate is 70 beats per minute. Blood pressure is 110/60, respirations 18. Chest exam reveals diminished air entry at the bases. Heart exam reveals first and second heart sounds. No gallop. No murmur. Abdomen is soft, nontender. Exam of extremities did not reveal any edema. Peripheral pulses are felt. LABS: Show a hemoglobin of 11.2, potassium is 4.4. Creatinine is 0.58. ASSESSMENT: 1. Acute pulmonary embolism. 2. Asymptomatic sinus bradycardia. PLAN: Bradycardia may be related to the beta blockers, could be related to the underlying pulmonary embolism. The patient is hemodynamically stable from pulmonary embolism. I am going to obtain a 2D echo on her tomorrow to evaluate LV function. I will stop the beta blockers, watch her on telemetry and reassess her tomorrow. MMODL / IJN: [id number] /
[2018-06-14] MEDS: IBUPROFEN 600 MG TAB PO PRN (16:23)
[2018-06-14] MEDS: SODIUM CHLORIDE 0.9% 1,000 ML IV SCH (16:26)
[2018-06-14] MEDS ORDERED: LEVOFLOXACIN 500MG-D5W PMX 500 MG in DEXTROSE/WATER 1 100ML.BAG IVPB STA (16:35)
--- NOTE | 2018-06-14 19:49 | CONS ---
CONSULTATION DATE OF SERVICE: June 14, 2018. REASON FOR CONSULTATION: Pulmonary carcinoma and cholangiocarcinoma. Caryl is a very pleasant 57-year-old lady very well known to me, who was diagnosed in February of 2018 with cholangiocarcinoma when she presented with right upper quadrant discomfort. She had further testing and then because of persistent discomfort, she had a CT scan of the chest, abdomen and pelvis in April of 2018 which revealed 6.4 x 6.7 x 8.9 cm lobulated complex right lower lobe mass. The mass was borderline and large gastrophrenic and portacaval adenopathy along was lung nodules, but her those were felt to be secondary to her history of sarcoidosis because they were present on previous CT scan in 2011. Subsequently, she underwent an ultrasound-guided biopsy of her liver, which was positive for moderately differentiated carcinoma. Immunohistochemical stains were consistent with pancreatic or biliary origin. Her serum alpha-fetoprotein was normal and her serum CA-19-9 was 2641 in April of 2013. Subsequently, the patient was referred to Dr. Ramos at [facility] for potential resection. She underwent exploratory surgery on 05/13/2018. Unfortunately, she was found to have diaphragmatic involvement and the peritoneal fluid also was positive for metastatic disease. The surgery was aborted and the patient was referred back to me to consider systemic treatment. I saw her postoperatively in the office and she was doing weak and poorly and it was decided to wait about a week or 2 to improve postoperatively and consider systemic treatment and in the meantime a request for a MSI studies was requested to determine if she has an MSI high disease to consider immunotherapy. However, the patient presented to the emergency department yesterday with shortness of breath which has been increasing over the last week. She had a CT scan done of the chest for which unfortunately revealed segmental and subsegmental pulmonary emboli in the right and left main pulmonary artery and involving the left upper lobe, left lower lobe and right lower lobe as well. Also, she had venous Doppler of her lower extremities, which revealed positive DVT involving the right proximal popliteal vein through proximal calf vein and positive DVT involving the left femoral vein and the SVT of the left greater saphenous vein. The patient ended up being admitted to the hospital and was started on intravenous heparin. The patient remains overall tired and she has shortness of breath. No chest pain. No hemoptysis. She is weak. She continued to have right upper quadrant discomfort. She has lost over 30 pounds since her initial diagnosis. She denies any melena, hematochezia, hematuria, hemoptysis, hematemesis or epistaxis. She has had intermittent fever since she was originally diagnosed and she has had leukocytosis over the last 2 months, which was felt to be reactive to her underlying malignancy. PAST MEDICAL HISTORY: In addition to what is stated above, she has sarcoidosis and she has had lung nodules related to that at least since 2011. She has a history of hypothyroidism. PAST SURGICAL HISTORY: She had tubal ligation, cholecystectomy, tonsillectomy, colonoscopy and liver biopsy and recent MediPort placement. FAMILY HISTORY: For malignancy is negative. However, it is positive for deep venous thrombosis. The patient's mother's sister and 2 sisters have issues with blood clots and they have a MTHFR mutation. ALLERGIES: There is no known drug allergies. SOCIAL HISTORY: She used to smoke, from 1971 till 2001. No alcohol abuse or no substance abuse. REVIEW OF SYSTEMS: As stated above in the history of present illness. HER CURRENT MEDICATIONS: Reviewed in her electronic medical record. PHYSICAL EXAMINATION: She is alert, oriented x3. She does not appear to be in distress. Her vital signs are pulse 78, respiration is 16, temperature 98.3. Her blood pressure 116/66, pulse ox is 94 percent on room air. HEENT: Normocephalic, atraumatic. No obvious icterus. NECK: Supple. No jugular venous distention. Chest equal expansion bilaterally. LUNGS: Clear to auscultation and percussion. Heart is regular rate and rhythm. ABDOMEN: Soft. She has hepatomegaly and tenderness in the right upper quadrant. Extremities reveal 1+ edema bilaterally. Skin no significant bruise or petechia. Lymphatics no peripheral enlarged cervical or supraclavicular node. Musculoskeletal moving all extremities appropriately. No percussion tenderness in the cervical spine or sternum. RECENT LABORATORY DATA: Sodium 135, potassium 4.4, chloride 99, CO2 24, BUN 14, creatinine 0.58, calcium is 8.5, AST is 43, ALT is 29, alkaline phosphatase is 179. IMPRESSION: 1. Bilateral pulmonary emboli and bilateral lower extremity deep venous thrombosis related to her underlying malignancy and immobility. 2. Metastatic cholangiocarcinoma with diagnostic and therapeutic circumstances stated above. The patient has not started systemic treatment yet. 3. Sarcoidosis. 4. Hypothyroidism. RECOMMENDATIONS: 1. From oncology standpoint, the patient could be switched to either one of the Doac. There is enough data to reveal the efficacy of the Doac in patients with metastatic malignancy. Eliquis or Xarelto would be appropriate. 2. She is hemodynamically stable and she does not have any significant hypoxemia related to her bilateral pulmonary emboli at this point in time. 3. Once the patient is stable, she could be discharged home. She will follow up with me in the outpatient setting to further determine systemic treatment based on her improvement in her performance status and in the meantime awaiting MSI studies which were requested. The above was discussed in detail with the patient. I have answered all her questions to her satisfaction. Thank you very much for asking me participate in the care of this nice lady. PEDRITO / AGUSTIN: [id number] /
[2018-06-14] MEDS: APIXABAN 5 MG TAB PO SCH (20:59)
[2018-06-14] MEDS: ALPRAZolam 0.25 MG TAB PO PRN (23:20)
[2018-06-15] MEDS: IBUPROFEN 600 MG TAB PO PRN ×3 (06:15→23:22)
[2018-06-15] MEDS: LEVOTHYROXINE 137 MCG TAB PO SCH (06:16)
[2018-06-15 07:18] LABS: ALT 27 U/L (9-52); AST 35 U/L (14-36); Albumin 2.7 g/dL (3.5-5.0); Alkaline Phosphatase 164 U/L (38-126); Anion Gap 11 mmol/L; Blood Urea Nitrogen 14 mg/dL (7-17); Calcium 8.5 mg/dL (8.4-10.2); Carbon Dioxide 26 mmol/L (22-30); Chloride 101 mmol/L (98-107); Glucose 101 mg/dL (74-99); Potassium 4.2 mmol/L (3.5-5.1); Sodium 138 mmol/L (137-145); Total Bilirubin 0.7 mg/dL (0.2-1.3); Total Protein 6.3 g/dL (6.3-8.2)
[2018-06-15 07:31] LABS: Anisocytosis Slight; Basophils % (A) 0 %; Eosinophils # (A) 0.4 k/uL (0-0.7); Eosinophils % (A) 2 %; HCT 36.3 % (34.0-46.0); HGB 10.7 gm/dL (11.4-16.0); Hypochromasia Marked; Lymphocytes % (A) 5 %; MCH 23.6 pg (25.0-35.0); MCHC 29.6 g/dL (31.0-37.0); MCV 79.6 fL (80.0-100.0); Mean Platelet Volume 7.2; Microcytosis Slight; Monocytes # (A) 0.6 k/uL (0-1.0); Monocytes % (A) 3 %; Neutrophils # (A) 16.6 k/uL (1.3-7.7); Neutrophils % (A) 88 %; Platelet Count 521 k/uL (150-450); RBC 4.56 m/uL (3.80-5.40); RDW 17.5 % (11.5-15.5); WBC 18.8 k/uL (3.8-10.6)
[2018-06-15] MEDS: SODIUM CHLORIDE 0.9% 1,000 ML IV SCH (08:51)
[2018-06-15] MEDS: APIXABAN 5 MG TAB PO SCH ×2 (08:58→21:02)
--- NOTE | 2018-06-15 10:33 | P.PN ---
Subjective Progress Note Date: 06/15/18 Principal diagnosis: Acute bilateral pulmonary emboli, acute DVTs This is a 57-year-old white female patient of Dr. Thomas who presented to the emergency department on 06/13/2018 at 1400 for evaluation of shortness of breath, she has been increasing for a period of last week. She denied any chest pain, denied any pleurisy, denied hemoptysis. 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 In early April patient had a urinary tract infection was treated with Bactrim, and later therapy was switched to Macrobid in view of patient developing a reaction. Patient's had persistent night sweats , and on May 02 patient also started having persistent bad pains on the right side of the abdomen. CAT scan of the chest and abdomen was completed, and showed a new large complex solitary right hepatic lobe lesion that was highly suspicious for neoplasm. Patient was seen by Dr. Wilde, he underwent a fine-needle biopsy by interventional radiology at the [facility] and the biopsies were reportedly positive for malignant cells. Patient was then referred to [facility] for surgical intervention and possible removal of the tumor, which was unsuccessful due to local spreading. Patient had a Port-A-Cath placed by Dr. Garibay on , and patient is set to start chemotherapy sometime next week. Chest x-ray was completed emergency department which showed a moderately sized right pleural effusion and small left pleural effusion with associated bibasilar atelectasis. CT angiogram showed non-occlusive emboli to the left lower lobe, left upper lobe, and right lower lobe. Segmental and subsegmental pulmonary emboli in the left main and right pulmonary arteries. No is no evidence of right heart strain. Again moderate-sized right pleural effusion was redemonstrated with adjacent compressive atelectasis. Large right hepatic mass partially visualized on the CT angios of the chest. Labs showed WBC of 19.4, hemoglobin of 11.3, INR 1.3, electrolytes and renal profile were unremarkable, AST was 43, ALT was 29, alk phos was 179, troponin was negative. EKG showed sinus tachycardia with a rate of 117 BPM. Patient states she has a MTHFR gene mutation, which was also positive in her mother, and her sister. Her mother on lifelong anticoagulation for history of pulmonary embolisms. Other history includes hypertension, hypothyroidism, GERD/reflux, anxiety, former nicotine dependence, IT band syndrom of bilateral legs. Patient did have a fever of 101.6F on presentation , he has been afebrile since. Slightly tachycardic initially with a rate in the 107 BPM, sinus mechanism, last night patient was noted to have pauses, and bradycardia. This morning her heart rate is 77, is hemodynamically stable, denies any acute distress, denies any shortness of breath, or chest pain, no pleurisy. Lung sounds are clear to auscultation. She has been started on IV heparin. Venous Doppler bilateral lower extremities is pending. On 06/15/2018 patient seen in follow-up on selective care unit. She is resting in bed, in no acute distress. Currently on room air, saturation is 92%. Denies any chest pain or shortness of breath, she is afebrile, hemodynamically stable. Lung sounds are clear to auscultation. Patient was started on Eliquis by her treating oncologist. Today's labs were noted, WBC is 18.8, patient has had no fever or chills, hemoglobin is 10.7, electrolytes and renal profile are all within normal limits. No recurrence of pauses last night, patient's beta blockers were placed on hold. She is in sinus mechanism, with controlled rate. No acute events overnight. Increase activity as tolerated. Patient and febrile episodes last night, afebrile this morning, blood cultures are pending. Patient was started on oral Levaquin. Objective - Vital Signs Vital signs: Vital Signs Temp 98.0 F 06/15/18 09:20 Pulse 91 06/15/18 09:20 Resp 20 06/15/18 09:20 BP 117/57 06/15/18 09:20 Pulse Ox 92 L 06/15/18 09:20 Intake & Output 06/14/18 06/15/18 06/15/18 18:59 06:59 18:59 Intake Total 186.185 600 Output Total 200 Balance -13.815 600 Intake: Intake, IV Titration 186.185 Amount Heparin Sod,Pork in 0.45% 186.185 NaCl 25,000 unit In 0.45 % NaCl 1 500ml.bag @ 18 UNITS/KG/HR 35.92 mls/hr IV .[id number] [facility] Rx#: [id number] Oral 600 Output: Urine 200 Other: Voiding Method Toilet Bedpan Bedside Commode # Voids 1 - Exam GENERAL EXAM: Alert, pleasant, 57-year-old white female comfortable in no apparent distress. HEAD: Normocephalic/atraumatic. EYES: Normal reaction of pupils, equal size. Conjunctiva pink, sclera white. NOSE: Clear with pink turbinates. THROAT: No erythema or exudates. NECK: No masses, no JVD, no thyroid enlargement, no adenopathy. CHEST: No chest wall deformity. Symmetrical expansion. LUNGS: Equal air entry with diminished breath sounds, no crackles, no wheezes no rhonchi CVS: Regular rate and rhythm, normal S1 and S2, no gallops, no murmurs, no rubs ABDOMEN: Soft, slightly tender over right upper quadrant, there is a healing surgical scar on the right side of the abdomen. No hepatosplenomegaly, normal bowel sounds, no guarding or rigidity. EXTREMITIES: No clubbing, mild nonpitting edema in bilateral lower extremities edema, no cyanosis, 2+ pulses and upper and lower extremities. MUSCULOSKELETAL: Muscle strength and tone normal. SPINE: No scoliosis or deformity SKIN: No rashes CENTRAL NERVOUS SYSTEM: Alert and oriented -3. No focal deficits, tone is normal in all 4 extremities. PSYCHIATRIC: Alert and oriented -3. Appropriate affect. Intact judgment and insight. - Labs CBC & Chem 7: 06/15/18 06:06 06/15/18 06:06 Labs: Abnormal Lab Results - Last 24 Hours (Table) 06/14/18 06/15/18 06/15/18 Range/Units 16:19 06:06 06:06 WBC 18.8 H (3.8-10.6) k/uL Hgb 10.7 L (11.4-16.0) gm/dL MCV 79.6 L (80.0-100.0) fL MCH 23.6 L (25.0-35.0) pg MCHC 29.6 L (31.0-37.0) g/dL RDW 17.5 H (11.5-15.5) % Plt Count 521 H (150-450) k/uL Neutrophils # 16.6 H (1.3-7.7) k/uL APTT >200.0 H* (22.0-30.0) sec Glucose 101 H (74-99) mg/dL Alkaline Phosphatase 164 H (38-126) U/L Albumin 2.7 L (3.5-5.0) g/dL Assessment and Plan Plan: Assessment: #1. Acute bilateral pulmonary emboli, in segmental and subsegmental branches #2. Acute DVTs in bilateral lower extremities, right proximal popliteal vein, and left proximal femoral vein #3. Dyspnea related to the pulmonary emboli, CT angios chest also showed moderately sized right-sided pleural effusion #4. Recent diagnosis of common bile duct/cholangiocarcinoma, patient underwent a fine-needle aspiration biopsy at [facility], which were reportedly positive for malignant cells. Patient is status post surgical intervention with attempt to remove the tumor, which was unsuccessful. This was done at [facility] by Dr. Bazan, and there was reportedly local spread of the malignancy. Patient also with Dr. Duff and she is supposed to start immunotherapy or chemotherapy sometime next week #5. History of MTHFR gene mutation, patient has a strong family history of pulmonary embolisms and DVTs in both of her mother and sister #6. Leukocytosis, rule out infectious etiology #7. Hypertension #8. Hypothyroidism #9. GERD/reflux #10. 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 Sarcoidosis, currently inactive and stable Plan: Patient was started on Eliquis, heparin drip has been discontinued. No shortness of breath or chest pain. Vital signs remain stable. No oxygenation issues, increase activity as tolerated. No pleurisy, no hemoptysis. Patient did have some febrile episodes yesterday, blood cultures were ordered and are pending at this time. Continue with current antibiotic coverage. I performed a history & physical examination of the patient and discussed their management with my nurse practitioner, Florina Doty. I reviewed the nurse practitioner's note and agree with the documented findings and plan of care. Lung sounds are positive for diminished breath sounds. The findings and the impression was discussed with the patient. I attest to the documentation by the nurse practitioner. Time with Patient: Less than 30
--- NOTE | 2018-06-15 10:56 | P.PN ---
Subjective Progress Note Date: 06/15/18 This is a 57-year-old white female patient who presented to the emergency department on 06/13/2018 at 1400 for evaluation of shortness of breath, she has been increasing for a period of last week. She denied any chest pain, denied any pleurisy, denied hemoptysis. 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 In early April patient had a urinary tract infection was treated with Bactrim, and later therapy was switched to Macrobid in view of patient developing a reaction. Patient's had persistent night sweats, and on May 02 patient also started having persistent bad pains on the right side of the abdomen. CAT scan of the chest and abdomen was completed, and showed a new large complex solitary right hepatic lobe lesion that was highly suspicious for neoplasm. Patient was seen by Dr. Wilde, he underwent a fine-needle biopsy by interventional radiology at the [facility] and the biopsies were reportedly positive for malignant cells. Patient was then referred to [facility] for surgical intervention and possible removal of the tumor, which was unsuccessful due to local spreading. Patient had a Port-A-Cath placed by Dr. Garibay on , and patient is set to start chemotherapy sometime next week. Chest x-ray was completed emergency department which showed a moderately sized right pleural effusion and small left pleural effusion with associated bibasilar atelectasis. CT angiogram showed non-occlusive emboli to the left lower lobe, left upper lobe, and right lower lobe. Segmental and subsegmental pulmonary emboli in the left main and right pulmonary arteries. No is no evidence of right heart strain. Again moderate-sized right pleural effusion was redemonstrated with adjacent compressive atelectasis. Large right hepatic mass partially visualized on the CT angios of the chest. EKG showed sinus tachycardia with a rate of 117 BPM. Patient states she has a MTHFR gene mutation, which was also positive in her mother, and her sister. Her mother on lifelong anticoagulation for history of pulmonary embolisms. Other history includes hypertension, hypothyroidism, GERD/reflux, anxiety, former nicotine dependence, IT band syndrom of bilateral legs. Patient did have a fever of 101.6F on presentation, patient did have a temperature again last night of 101.8. Cardiology was asked initially to see the patient because of bradycardia. She had been on beta fabio at home which was discontinued here. This morning's blood pressure 122/58 with a heart rate in the 80s to 90s. An echocardiogram with Doppler study was performed this morning, results are yet pending. At the time of my examination this morning, patient is complaining of some right sided abdominal pain, breathing is stable, denies any dizziness or lightheadedness. Objective - Vital Signs Vital signs: Vital Signs Temp 98.0 F 06/15/18 09:20 Pulse 91 06/15/18 10:26 Resp 20 06/15/18 10:26 BP 117/57 06/15/18 09:20 Pulse Ox 92 L 06/15/18 09:20 Intake & Output 06/14/18 06/15/18 06/15/18 18:59 06:59 18:59 Intake Total 186.185 600 Output Total 200 300 Balance -13.815 600 -300 Intake: Intake, IV Titration 186.185 Amount Heparin Sod,Pork in 0.45% 186.185 NaCl 25,000 unit In 0.45 % NaCl 1 500ml.bag @ 18 UNITS/KG/HR 35.92 mls/hr IV .[id number] [facility] Rx#: [id number] Oral 600 Output: Urine 200 300 Other: Voiding Method Toilet Bedpan Bedpan Bedside Commode # Voids 1 1 - Exam PHYSICAL EXAMINATION: GENERAL: 57-year-old female in no acute distress at the time of my examination HEENT: Head is atraumatic, normocephalic. Pupils equal, round. Sclera anicteric. Conjunctiva are clear. Mucous membranes of the mouth are moist. Neck is supple. There is no elevated jugular venous pressure. No carotid bruit is heard. HEART EXAMINATION:Heart S1, S2 normal. No murmur or gallop heard. CHEST EXAMINATION:Lungs are clear to auscultation and precussion. No chest wall tenderness is noted on palpation or with deep breathing. ABDOMEN: Soft, right upper quadrant tenderness, positive hepatomegaly. there is a healing surgical scar on the right side of the abdomen EXTREMITIES:2+ peripheral pulses with trace to 1+ evidence of peripheral edema NEUROLOGIC patient is awake, alert and oriented X3. . - Labs CBC & Chem 7: 06/15/18 06:06 06/15/18 06:06 Labs: Abnormal Lab Results - Last 24 Hours (Table) 06/14/18 06/15/18 06/15/18 Range/Units 16:19 06:06 06:06 WBC 18.8 H (3.8-10.6) k/uL Hgb 10.7 L (11.4-16.0) gm/dL MCV 79.6 L (80.0-100.0) fL MCH 23.6 L (25.0-35.0) pg MCHC 29.6 L (31.0-37.0) g/dL RDW 17.5 H (11.5-15.5) % Plt Count 521 H (150-450) k/uL Neutrophils # 16.6 H (1.3-7.7) k/uL APTT >200.0 H* (22.0-30.0) sec Glucose 101 H (74-99) mg/dL Alkaline Phosphatase 164 H (38-126) U/L Albumin 2.7 L (3.5-5.0) g/dL Assessment and Plan Plan: Assessment and Plan : #1. Acute bilateral pulmonary emboli, in segmental and subsegmental branches #2. Acute DVTs in bilateral lower extremities, right proximal popliteal vein, and left proximal femoral vein #3. Dyspnea related to the pulmonary emboli, CT angios chest also showed moderately sized right-sided pleural effusion #4. Recent diagnosis of common bile duct/cholangiocarcinoma, patient underwent a fine-needle aspiration biopsy at [facility], which were reportedly positive for malignant cells. Patient is status post surgical intervention with attempt to remove the tumor, which was unsuccessful. This was done at [facility] by Dr. Bazan, and there was reportedly local spread of the malignancy. Patient also with Dr. Duff and she is supposed to start immunotherapy or chemotherapy sometime next week #5. History of MTHFR gene mutation, patient has a strong family history of pulmonary embolisms and DVTs in both of her mother and sister #6. Leukocytosis, rule out infectious etiology #7. Hypertension #8. Hypothyroidism #9. GERD/reflux #10. 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 Episode of bradycardia, heart rate this morning in the 80s Plan Echocardiogram with Doppler study was performed this morning which we will review. Continue current medications. DNP note has been reviewed, I agree with a documented findings and plan of care. Patient was seen and examined.
--- NOTE | 2018-06-15 12:35 | ECHOF ---
Referral Reason:pulmonary embolism MEASUREMENTS -------- HEIGHT: 162.6 cm WEIGHT: 98.9 kg BP: 141/63 RVIDd: 2.8 cm (< 3.3) IVSd: 1.3 cm (0.6 - 1.1) LVIDd: 3.8 cm (3.9 - 5.3) LVPWd: 1.1 cm (0.6 - 1.1) IVSs: 1.5 cm LVIDs: 2.5 cm LVPWs: 1.6 cm LA Diam: 2.8 cm (2.7 - 3.8) Ao Diam: 2.9 cm (2.0 - 3.7) AV Cusp: 1.4 cm (1.5 - 2.6) LA Diam: 3.8 cm (2.7 - 3.8) MV EXCURSION: 20.477 mm (> 18.000) MV EF SLOPE: 62 mm/s (70 - 150) EPSS: 0.3 cm MV E Sandeep: 0.68 m/s MV DecT: 216 ms MV A Sandeep: 0.94 m/s MV E/A Ratio: 0.72 RAP: 5.00 mmHg RVSP: 28.94 mmHg FINDINGS -------- Sinus rhythm. This was a technically adequate study. The left ventricular size is normal. There is mild concentric left ventricular hypertrophy. Overa ll left ventricular systolic function is normal with, an EF between 55 - 60 %. The right ventricle is normal in size. The left atrial size is normal. The right atrial size is normal. The aortic valve is trileaflet, and appears structurally normal. No aortic stenosis or regurgitation. Mild mitral annular calcification present. Mild mitral regurgitation is present. Mild tricuspid regurgitation present. There is no evidence of pulmonary hypertension. The right v entricular systolic pressure, as measured by Doppler, is 28.94mmHg. There is no pulmonic regurgitation present. There is a small, generalized pericardial effusion present. CONCLUSIONS -------- 1. The left ventricular size is normal. 2. There is mild concentric left ventricular hypertrophy. 3. Overall left ventricular systolic function is normal with, an EF between 55 - 60 %. 4. The right ventricle is normal in size. 5. The left atrial size is normal. 6. The right atrial size is normal. 7. The aortic valve is trileaflet, and appears structurally normal. No aortic stenosis or regurgitati on. 8. Mild mitral annular calcification present. 9. Mild mitral regurgitation is present. 10. Mild tricuspid regurgitation present. 11. There is no evidence of pulmonary hypertension. 12. The right ventricular systolic pressure, as measured by Doppler, is 28.94mmHg. 13. There is no pulmonic regurgitation present. 14. There is a small, generalized pericardial effusion present. COAT OPERATOR: Veronica Almeida RDCS
[2018-06-15 13:36] VITALS: BMI 37.5
--- NOTE | 2018-06-15 14:07 | P.PN ---
Subjective Progress Note Date: 06/15/18 Principal diagnosis: Bilateral PE and DVT Pt seen in f/u, she has started eliquis, no c/o bleeding. Pt feels well, no JOSE , cough, chest pain, she can ambulate independently. Appetite is good, no pain. Objective - Vital Signs Vital signs: Vital Signs Temp 97.4 F L 06/15/18 12:21 Pulse 88 06/15/18 12:21 Resp 18 06/15/18 12:21 BP 122/73 06/15/18 12:21 Pulse Ox 95 06/15/18 12:21 Intake & Output 06/14/18 06/15/18 06/15/18 18:59 06:59 18:59 Intake Total 186.185 600 240 Output Total 200 300 Balance -13.815 600 -60 Weight 99.1 kg Intake: Intake, IV Titration 186.185 Amount Heparin Sod,Pork in 0.45% 186.185 NaCl 25,000 unit In 0.45 % NaCl 1 500ml.bag @ 18 UNITS/KG/HR 35.92 mls/hr IV .[id number] [facility] Rx#: [id number] Oral 600 240 Output: Urine 200 300 Other: Voiding Method Toilet Bedpan Bedpan Bedside Commode # Voids 1 1 - Exam WDWN, sitting up at bedside eating lunch, NAD, A&OX4, carries on conversation without SOB - Labs CBC & Chem 7: 06/15/18 06:06 06/15/18 06:06 Labs: Abnormal Lab Results - Last 24 Hours (Table) 06/14/18 06/15/18 06/15/18 Range/Units 16:19 06:06 06:06 WBC 18.8 H (3.8-10.6) k/uL Hgb 10.7 L (11.4-16.0) gm/dL MCV 79.6 L (80.0-100.0) fL MCH 23.6 L (25.0-35.0) pg MCHC 29.6 L (31.0-37.0) g/dL RDW 17.5 H (11.5-15.5) % Plt Count 521 H (150-450) k/uL Neutrophils # 16.6 H (1.3-7.7) k/uL APTT >200.0 H* (22.0-30.0) sec Glucose 101 H (74-99) mg/dL Alkaline Phosphatase 164 H (38-126) U/L Albumin 2.7 L (3.5-5.0) g/dL Assessment and Plan (1) Cholangiocarcinoma Narrative/Plan: F/U appt with Dr. Duff in discharge Current Visit: Yes Status: Acute Priority: High Code(s): C22.1 - INTRAHEPATIC BILE DUCT CARCINOMA SNOMED Code(s): 135134554 (2) DVT (deep venous thrombosis) Current Visit: Yes Status: Acute Code(s): I82.409 - ACUTE EMBOLISM AND THOMBOS UNSP DEEP VN UNSP LOWER EXTREMITY SNOMED Code(s): 977892534 (3) Pulmonary embolism Current Visit: Yes Status: Acute Code(s): I26.99 - OTHER PULMONARY EMBOLISM WITHOUT ACUTE COR PULMONALE SNOMED Code(s): 13692595 Plan: Thrombosis/embolism secondary to malignancy. Patrizia started. Pt ok from Hem/Onc standpoint to be discharged once cleared by IM and consulting Physicians.
--- NOTE | 2018-06-15 15:31 | P.PN ---
<Mary Jo Mendez A - Last Filed: 06/15/18 15:25> Subjective Progress Note Date: 06/15/18 This is a 57-year-old female who presented to the ER complaining of progressive shortness of breath. She was recently diagnosed with bile duct carcinoma. Currently being treated by Dr. Duff. She had surgery for possible removal of tumor, however, they were unable to remove the tumor, liver biopsy was performed during that time and also two lymph nodes were removed. She also had a port placement done by Dr. Garibay for the initiation of chemotherapy. Patient began having shortness of breath since the end of May. Patient states that the shortness of breath has progressively gotten worse, with the worst happening yesterday evening where she was unable to stand because of the shortness of breath. Patient was being treated outpatient for sinus infection during that time. Patient presented to the emergency department where she was found to have a pulmonary embolism. The CT showed segmental and subsegmental pulmonary emboli beginning in the right and left main pulmonary arteries involving the left upper lobe, left lower lobe, and right lower lobe. Persistent moderate right pleural effusion was noted. Partial visualization of known large right hepatic mass. Patient presents this morning without any complaints of difficulty breathing. Multiple sinus pauses noted on telemetry during the night. Patient denies any dizziness, and couple episodes, or loss of consciousness. She also denies any cough, chest pain, or palpitations. 06/15: Patient denies any chest pain, shortness of breath or abdominal pain. Patient has been seen by cardiology and oncology as well. She has been started on eliquis. Currently pulse ox is 92% on 2 L area patient did have a fever on presentation and also yesterday with temperature max 102.4 but states she has had fevers since February 20. Blood culture will be ordered. Echocardiogram reveals mild concentric left ventricular hypertrophy, EF 55-60%, mild mitral regurgitation, mild tricuspid regurgitation, no pulmonary hypertension. Anticipate probable discharge on Friday. Objective - Vital Signs Vital signs: Vital Signs Temp 98.0 F 06/15/18 09:20 Pulse 91 06/15/18 09:20 Resp 20 06/15/18 09:20 BP 117/57 06/15/18 09:20 Pulse Ox 92 L 06/15/18 09:20 Intake & Output 06/14/18 06/15/18 06/15/18 18:59 06:59 18:59 Intake Total 186.185 600 Output Total 200 Balance -13.815 600 Intake: Intake, IV Titration 186.185 Amount Heparin Sod,Pork in 0.45% 186.185 NaCl 25,000 unit In 0.45 % NaCl 1 500ml.bag @ 18 UNITS/KG/HR 35.92 mls/hr IV .[id number] [facility] Rx#: [id number] Oral 600 Output: Urine 200 Other: Voiding Method Toilet Bedpan Bedside Commode # Voids 1 - Exam Gen: This is a 57-year-old female, in no acute distress, cooperative, obese HEENT: Head is atraumatic, normocephalic. Pupils equal, round. Sclerae is anicteric. NECK: Supple. No JVD. No lymphadenopathy. No thyromegaly. LUNGS: Clear to auscultation. No wheezes or rhonchi. No intercostal retractions. HEART: Regular rate and rhythm. No murmur. ABDOMEN: Soft. Bowel sounds are present. No masses. No tenderness. EXTREMITIES: No pedal edema. No calf tenderness. NEUROLOGICAL: Patient is awake, alert and oriented x3. Cranial nerves 2 through 12 are grossly intact. - Labs CBC & Chem 7: 06/15/18 06:06 06/15/18 06:06 Labs: Abnormal Lab Results - Last 24 Hours (Table) 06/14/18 06/15/18 06/15/18 Range/Units 16:19 06:06 06:06 WBC 18.8 H (3.8-10.6) k/uL Hgb 10.7 L (11.4-16.0) gm/dL MCV 79.6 L (80.0-100.0) fL MCH 23.6 L (25.0-35.0) pg MCHC 29.6 L (31.0-37.0) g/dL RDW 17.5 H (11.5-15.5) % Plt Count 521 H (150-450) k/uL Neutrophils # 16.6 H (1.3-7.7) k/uL APTT >200.0 H* (22.0-30.0) sec Glucose 101 H (74-99) mg/dL Alkaline Phosphatase 164 H (38-126) U/L Albumin 2.7 L (3.5-5.0) g/dL Assessment and Plan Plan: 1. Pulmonary embolism secondary to physiology of disease progression versus coagulopathy, continue on IV heparin, consult oncology, consult pulmonology, obtain venous Doppler of bilateral lower extremities. Eliquis has been started. 2. Bile duct carcinoma, consult oncology to initiate treatment plan as appropriate 3. Hypertension, continue to monitor blood pressures 4. Hypothyroidism, continue Synthroid 137 mcg daily 5. Gastroesophageal reflux disease, Pepcid 20 mg when necessary 6. Anxiety, continue Xanax 0.25 mg twice a day when necessary 7. Sarcoidosis, stable 8. GI prophylaxis, ordered Pepcid 20 mg when necessary 9. DVT prophylaxis, IV heparin 10 SIRS with fever, tachycardia, present on admission secondary to underlying cancer and pulmonary embolism Discharge plan: Most likely home on Friday Impression and plan of care have been directed as dictated by the signing physician. Mary Jo Mendez nurse practitioner acting as scribe for signing physician. <Sherry Luna - Last Filed: 06/18/18 21:46> Subjective Constitutional: Denies weakness, Denies chills, Denies fever Eyes: denies blurred vision, denies pain Ears, nose, mouth and throat: Denies headache, Denies sore throat, Denies vertigo Cardiovascular: Reports shortness of breath, Denies chest pain, Denies syncope Respiratory: denies cough, Reports dyspnea, Denies cough with sputum, Denies excessive sputum, Denies hemoptysis, Denies home oxygen, Denies wheezing Gastrointestinal: Denies abdominal pain, Denies diarrhea, Denies nausea, Denies vomiting Genitourinary: Denies dysuria, Denies hematuria Musculoskeletal: Denies myalgias Integumentary: Denies pruritus, Denies rash Neurological: Denies numbness, Denies weakness Psychiatric: Denies anxiety, Denies depression Endocrine: Denies fatigue, Denies weight change Objective - Vital Signs Vital signs: Vital Signs Temp 99.7 F H 06/16/18 11:40 Pulse 96 06/16/18 11:40 Resp 20 06/16/18 11:40 BP 125/67 06/16/18 11:40 Pulse Ox 95 06/16/18 11:40 - Labs CBC & Chem 7: 06/16/18 05:51 06/16/18 05:51 Labs: Microbiology - Last 24 Hours (Table) 06/15/18 11:10 Blood Culture - Preliminary Blood No Growth after 72 hours
[2018-06-15] MEDS ORDERED: LEVOFLOXACIN 500 MG TAB PO SCH (17:00)
[2018-06-15] MEDS: ALPRAZolam 0.25 MG TAB PO PRN (23:22)
[2018-06-16] MEDS: LEVOTHYROXINE 137 MCG TAB PO SCH (06:11)
[2018-06-16 06:48] LABS: ALT 30 U/L (9-52); AST 39 U/L (14-36); Albumin 2.5 g/dL (3.5-5.0); Alkaline Phosphatase 158 U/L (38-126); Anion Gap 10 mmol/L; Blood Urea Nitrogen 11 mg/dL (7-17); Calcium 8.3 mg/dL (8.4-10.2); Carbon Dioxide 25 mmol/L (22-30); Chloride 101 mmol/L (98-107); Glucose 104 mg/dL (74-99); Potassium 3.7 mmol/L (3.5-5.1); Sodium 136 mmol/L (137-145); Total Bilirubin 0.6 mg/dL (0.2-1.3); Total Protein 5.8 g/dL (6.3-8.2)
[2018-06-16 06:49] LABS: Anisocytosis Slight; Basophils % (A) 0 %; Eosinophils # (A) 0.6 k/uL (0-0.7); Eosinophils % (A) 3 %; HCT 33.8 % (34.0-46.0); HGB 10.3 gm/dL (11.4-16.0); Hypochromasia Marked; Lymphocytes # (A) 1.2 k/uL (1.0-4.8); Lymphocytes % (A) 7 %; MCH 23.9 pg (25.0-35.0); MCHC 30.6 g/dL (31.0-37.0); MCV 78.2 fL (80.0-100.0); Mean Platelet Volume 6.9; Microcytosis Slight; Monocytes # (A) 0.5 k/uL (0-1.0); Monocytes % (A) 3 %; Neutrophils # (A) 15.3 k/uL (1.3-7.7); Neutrophils % (A) 86 %; Platelet Count 495 k/uL (150-450); Poikilocytosis Slight; RBC 4.33 m/uL (3.80-5.40); RDW 17.5 % (11.5-15.5); WBC 17.7 k/uL (3.8-10.6)
[2018-06-16] MEDS: APIXABAN 5 MG TAB PO SCH (08:23)
[2018-06-16 09:15] VITALS: PULSE 96; RESP 20
--- NOTE | 2018-06-16 10:13 | P.PN ---
Subjective Progress Note Date: 06/16/18 Principal diagnosis: Acute bilateral pulmonary emboli, acute DVTs This is a 57-year-old white female patient of Dr. Thomas who presented to the emergency department on 06/13/2018 at 1400 for evaluation of shortness of breath, she has been increasing for a period of last week. She denied any chest pain, denied any pleurisy, denied hemoptysis. 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 In early April patient had a urinary tract infection was treated with Bactrim, and later therapy was switched to Macrobid in view of patient developing a reaction. Patient's had persistent night sweats , and on May 02 patient also started having persistent bad pains on the right side of the abdomen. CAT scan of the chest and abdomen was completed, and showed a new large complex solitary right hepatic lobe lesion that was highly suspicious for neoplasm. Patient was seen by Dr. Wilde, he underwent a fine-needle biopsy by interventional radiology at the [facility] and the biopsies were reportedly positive for malignant cells. Patient was then referred to [facility] for surgical intervention and possible removal of the tumor, which was unsuccessful due to local spreading. Patient had a Port-A-Cath placed by Dr. Garibay on , and patient is set to start chemotherapy sometime next week. Chest x-ray was completed emergency department which showed a moderately sized right pleural effusion and small left pleural effusion with associated bibasilar atelectasis. CT angiogram showed non-occlusive emboli to the left lower lobe, left upper lobe, and right lower lobe. Segmental and subsegmental pulmonary emboli in the left main and right pulmonary arteries. No is no evidence of right heart strain. Again moderate-sized right pleural effusion was redemonstrated with adjacent compressive atelectasis. Large right hepatic mass partially visualized on the CT angios of the chest. Labs showed WBC of 19.4, hemoglobin of 11.3, INR 1.3, electrolytes and renal profile were unremarkable, AST was 43, ALT was 29, alk phos was 179, troponin was negative. EKG showed sinus tachycardia with a rate of 117 BPM. Patient states she has a MTHFR gene mutation, which was also positive in her mother, and her sister. Her mother on lifelong anticoagulation for history of pulmonary embolisms. Other history includes hypertension, hypothyroidism, GERD/reflux, anxiety, former nicotine dependence, IT band syndrom of bilateral legs. Patient did have a fever of 101.6F on presentation , he has been afebrile since. Slightly tachycardic initially with a rate in the 107 BPM, sinus mechanism, last night patient was noted to have pauses, and bradycardia. This morning her heart rate is 77, is hemodynamically stable, denies any acute distress, denies any shortness of breath, or chest pain, no pleurisy. Lung sounds are clear to auscultation. She has been started on IV heparin. Venous Doppler bilateral lower extremities is pending. On 06/15/2018 patient seen in follow-up on selective care unit. She is resting in bed, in no acute distress. Currently on room air, saturation is 92%. Denies any chest pain or shortness of breath, she is afebrile, hemodynamically stable. Lung sounds are clear to auscultation. Patient was started on Eliquis by her treating oncologist. Today's labs were noted, WBC is 18.8, patient has had no fever or chills, hemoglobin is 10.7, electrolytes and renal profile are all within normal limits. No recurrence of pauses last night, patient's beta blockers were placed on hold. She is in sinus mechanism, with controlled rate. No acute events overnight. Increase activity as tolerated. Patient and febrile episodes last night, afebrile this morning, blood cultures are pending. Patient was started on oral Levaquin. On 06/16/2018 patient seen in follow-up on selective care unit. Dyspneic with exertion, but no chest pain, no hemoptysis. Pulse ox on 2 L per nasal cannula is 90-93%, she is afebrile, hemodynamically stable. Patient has been started on Eliquis for anticoagulation for medical oncology recommendations. Low molecular weight heparin injections for anticoagulation in view of her underlying malignancy, cholangio-sarcoma, however the patient absolutely refused any injections, and she would like to proceed with oral anticoagulation at this time. Patient was febrile last night, with a temp of 101F. Blood cultures have been collected, and are pending at this time, is afebrile this morning, denies any chest congestion, cough, or sputum production. No urinary symptoms. No abdominal pain. Patient continues on empiric antibiotics in the form of oral Levaquin, and she states she she does not think she needs it, because of recurrent courses of antibiotics since March. Objective - Vital Signs Vital signs: Vital Signs Temp 98.1 F 06/16/18 09:14 Pulse 96 06/16/18 09:14 Resp 20 06/16/18 09:14 BP 144/65 06/16/18 09:14 Pulse Ox 92 L 06/16/18 09:14 Intake & Output 06/15/18 06/16/18 06/16/18 18:59 06:59 18:59 Intake Total 940 360 Output Total 700 Balance 240 360 Weight 99.1 kg 98.9 kg Intake: Oral 940 360 Output: Urine 700 Other: Voiding Method Bedpan Toilet Toilet # Voids 1 1 # Bowel Movements 1 - Exam GENERAL EXAM: Alert, pleasant, 57-year-old white female comfortable in no apparent distress. HEAD: Normocephalic/atraumatic. EYES: Normal reaction of pupils, equal size. Conjunctiva pink, sclera white. NOSE: Clear with pink turbinates. THROAT: No erythema or exudates. NECK: No masses, no JVD, no thyroid enlargement, no adenopathy. CHEST: No chest wall deformity. Symmetrical expansion. LUNGS: Equal air entry with diminished breath sounds, no crackles, no wheezes no rhonchi CVS: Regular rate and rhythm, normal S1 and S2, no gallops, no murmurs, no rubs ABDOMEN: Soft, slightly tender over right upper quadrant, there is a healing surgical scar on the right side of the abdomen. No hepatosplenomegaly, normal bowel sounds, no guarding or rigidity. EXTREMITIES: No clubbing, mild nonpitting edema in bilateral lower extremities edema, no cyanosis, 2+ pulses and upper and lower extremities. MUSCULOSKELETAL: Muscle strength and tone normal. SPINE: No scoliosis or deformity SKIN: No rashes CENTRAL NERVOUS SYSTEM: Alert and oriented -3. No focal deficits, tone is normal in all 4 extremities. PSYCHIATRIC: Alert and oriented -3. Appropriate affect. Intact judgment and insight. - Labs CBC & Chem 7: 06/16/18 05:51 06/16/18 05:51 Labs: Abnormal Lab Results - Last 24 Hours (Table) 06/16/18 06/16/18 Range/Units 05:51 05:51 WBC 17.7 H (3.8-10.6) k/uL Hgb 10.3 L (11.4-16.0) gm/dL Hct 33.8 L (34.0-46.0) % MCV 78.2 L (80.0-100.0) fL MCH 23.9 L (25.0-35.0) pg MCHC 30.6 L (31.0-37.0) g/dL RDW 17.5 H (11.5-15.5) % Plt Count 495 H (150-450) k/uL Neutrophils # 15.3 H (1.3-7.7) k/uL Sodium 136 L (137-145) mmol/L Glucose 104 H (74-99) mg/dL Calcium 8.3 L (8.4-10.2) mg/dL AST 39 H (14-36) U/L Alkaline Phosphatase 158 H (38-126) U/L Total Protein 5.8 L (6.3-8.2) g/dL Albumin 2.5 L (3.5-5.0) g/dL Assessment and Plan Plan: Assessment: #1. Acute bilateral pulmonary emboli, in segmental and subsegmental branches #2. Acute DVTs in bilateral lower extremities, right proximal popliteal vein, and left proximal femoral vein #3. Dyspnea related to the pulmonary emboli, CT angios chest also showed moderately sized right-sided pleural effusion #4. Recent diagnosis of common bile duct/cholangiocarcinoma, patient underwent a fine-needle aspiration biopsy at [facility], which were reportedly positive for malignant cells. Patient is status post surgical intervention with attempt to remove the tumor, which was unsuccessful. This was done at [facility] by Dr. Bazan, and there was reportedly local spread of the malignancy. Patient also with Dr. Duff and she is supposed to start immunotherapy or chemotherapy sometime next week #5. History of MTHFR gene mutation, patient has a strong family history of pulmonary embolisms and DVTs in both of her mother and sister #6. Leukocytosis, rule out infectious etiology #7. Hypertension #8. Hypothyroidism #9. GERD/reflux #10. 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 Sarcoidosis, currently inactive and stable Plan: Continue Eliquis, we have considered low molecular weight heparin for anticoagulation in view of patient's underlying malignancy, patient is refusing injections, and would like to proceed with oral anticoagulation. No shortness of breath or chest pain. Vital signs remain stable. No oxygenation issues, increase activity as tolerated. No pleurisy, no hemoptysis. Patient did have some febrile episodes yesterday, blood cultures were ordered and are pending at this time. Continue with current antibiotic coverage. I performed a history & physical examination of the patient and discussed their management with my nurse practitioner, Florina Dtoy. I reviewed the nurse practitioner's note and agree with the documented findings and plan of care. Lung sounds are positive for diminished breath sounds. The findings and the impression was discussed with the patient. I attest to the documentation by the nurse practitioner. Time with Patient: Less than 30
[2018-06-16] MEDS: IBUPROFEN 600 MG TAB PO PRN (11:17)
[2018-06-16 11:41] VITALS: BP 125/67; TEMP 99.7
--- NOTE | 2018-06-16 11:47 | P.DS ---
Providers Date of admission: 06/13/18 16:34 Expected date of discharge: 06/16/18 Attending physician: Sherry Luna MD Consults: 06/13/18 16:10 Consult Physician Urgent Consulting Provider: Parul Duff Consult Reason/Comments: pe, oncological care Do you want consulting provider notified?: Yes 06/13/18 16:27 Consult Physician Stat Consulting Provider: Jodi Hewitt Consult Reason/Comments: pulmonary embolism Do you want consulting provider notified?: Yes 06/14/18 08:55 Consult Physician Routine Consulting Provider: Abimael Oswald Consult Reason/Comments: Pauses Do you want consulting provider notified?: Yes Primary care physician: [facility] Course: This is a 57-year-old female who presented to the ER complaining of progressive shortness of breath. She was recently diagnosed with bile duct carcinoma. Currently being treated by Dr. Duff. She had surgery for possible removal of tumor, however, they were unable to remove the tumor, liver biopsy was performed during that time and also two lymph nodes were removed. She also had a port placement done by Dr. Garibay for the initiation of chemotherapy. Patient began having shortness of breath since the end of May. Patient states that the shortness of breath has progressively gotten worse, with the worst happening yesterday evening where she was unable to stand because of the shortness of breath. Patient was being treated outpatient for sinus infection during that time. Patient presented to the emergency department where she was found to have a pulmonary embolism. The CT showed segmental and subsegmental pulmonary emboli beginning in the right and left main pulmonary arteries involving the left upper lobe, left lower lobe, and right lower lobe. Persistent moderate right pleural effusion was noted. Partial visualization of known large right hepatic mass. Patient presents this morning without any complaints of difficulty breathing. Multiple sinus pauses noted on telemetry during the night. Patient denies any dizziness, and couple episodes, or loss of consciousness. She also denies any cough, chest pain, or palpitations. 06/15: Patient denies any chest pain, shortness of breath or abdominal pain. Patient has been seen by cardiology and oncology as well. She has been started on eliquis. Currently pulse ox is 92% on 2 L area patient did have a fever on presentation and also yesterday with temperature max 102.4 but states she has had fevers since February 20. Blood culture will be ordered. Echocardiogram reveals mild concentric left ventricular hypertrophy, EF 55-60%, mild mitral regurgitation, mild tricuspid regurgitation, no pulmonary hypertension. Anticipate probable discharge on Friday. 06/16: White count is 17.7, hemoglobin 10.3 and platelet count 495. AST 39, ALT 30, alkaline phosphatase 158. Blood culture is status received. counter manager is checking coverage for eliquis which she has 0 co-pay. TSH came back elevated at 15 and levothyroxine dose will be increased for home 250 g daily. She is continued on Levaquin for a sending cholangitis. Patient was taken off metoprolol for sinus pauses which are improved and heart rate is running in the 90s. Blood pressure stable at 125/67. Pulse ox is 95% on room air. Patient will be discharged home today in stable condition.. Discharge diagnoses: 1. 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 Bile duct carcinoma with a sending: Matthias 3. Hypertension 4. Hypothyroidism 5. Gastroesophageal reflux disease 6. Generalized anxiety disorder 7. Sarcoidosis, stable 8. SIRS with fever, tachycardia, present on admission secondary to underlying cancer and pulmonary embolism Discharge plan: home Impression and plan of care have been directed as dictated by the signing physician. Mary Jo Mendez nurse practitioner acting as scribe for signing physician. Patient Condition at Discharge: Good Plan - Discharge Summary Discharge Rx Participant: No New Discharge Prescriptions: New Apixaban [Eliquis] 5 mg PO BID tab Levofloxacin [Levaquin] 500 mg PO Q24H #7 tab Levothyroxine Sodium [Synthroid] 150 mcg PO DAILY@0630 #60 tab Continue Glucosamine Sulfate 500 mg PO DAILY Krill Oil 500 mg PO DAILY Calcium Carbonate [Calcium] 600 mg PO DAILY [place]-3 Fatty Acids/Fish Oil [Fish Oil 1,000 mg Softgel] 1 cap PO DAILY Fluconazole [Diflucan] 150 mg PO DAILY #7 Discontinued Metoprolol Tartrate 25 mg PO HS Discharge Medication List Calcium Carbonate [Calcium] 600 mg PO DAILY 06/13/18 [History] Glucosamine Sulfate 500 mg PO DAILY 06/13/18 [History] Krill Oil 500 mg PO DAILY 06/13/18 [History] [place]-3 Fatty Acids/Fish Oil [Fish Oil 1,000 mg Softgel] 1 cap PO DAILY [History] Apixaban [Eliquis] 5 mg PO BID tab 06/16/18 [Rx] Fluconazole [Diflucan] 150 mg PO DAILY #7 06/16/18 [Rx] Levofloxacin [Levaquin] 500 mg PO Q24H #7 tab 06/16/18 [Rx] Levothyroxine Sodium [Synthroid] 150 mcg PO DAILY@0630 #60 tab 06/16/18 [Rx] Follow up Appointment(s)/Referral(s): [facility] [Provider Group] - 06/16/18 (Go to 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 OFFICE WILL CALL WITH APPOINTMENT TIME) Abimael Oswald MD [STAFF PHYSICIAN] - 06/30/18 3:45 pm (Friday) Parul Duff MD [STAFF PHYSICIAN] - 06/22/18 4:45 pm (FRIDAY) Patient Instructions/Handouts: Pulmonary Embolism (DC), Safe Use of Anticoagulants (DC) Activity/Diet/Wound Care/Special Instructions: Eliquis script filled in [facility] covered by insurance with $0 copay Discharge Disposition: HOME SELF-CARE
--- NOTE | 2018-06-16 12:02 | P.PN ---
Subjective Progress Note Date: 06/16/18 This is a 57-year-old white female patient who presented to the emergency department on 06/13/2018 at 1400 for evaluation of shortness of breath, she has been increasing for a period of last week. She denied any chest pain, denied any pleurisy, denied hemoptysis. 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 In early April patient had a urinary tract infection was treated with Bactrim, and later therapy was switched to Macrobid in view of patient developing a reaction. Patient's had persistent night sweats, and on May 02 patient also started having persistent bad pains on the right side of the abdomen. CAT scan of the chest and abdomen was completed, and showed a new large complex solitary right hepatic lobe lesion that was highly suspicious for neoplasm. Patient was seen by Dr. Wilde, he underwent a fine-needle biopsy by interventional radiology at the [facility] and the biopsies were reportedly positive for malignant cells. Patient was then referred to [facility] for surgical intervention and possible removal of the tumor, which was unsuccessful due to local spreading. Patient had a Port-A-Cath placed by Dr. Garibay on , and patient is set to start chemotherapy sometime next week. Chest x-ray was completed emergency department which showed a moderately sized right pleural effusion and small left pleural effusion with associated bibasilar atelectasis. CT angiogram showed non-occlusive emboli to the left lower lobe, left upper lobe, and right lower lobe. Segmental and subsegmental pulmonary emboli in the left main and right pulmonary arteries. No is no evidence of right heart strain. Again moderate-sized right pleural effusion was redemonstrated with adjacent compressive atelectasis. Large right hepatic mass partially visualized on the CT angios of the chest. EKG showed sinus tachycardia with a rate of 117 BPM. Patient states she has a MTHFR gene mutation, which was also positive in her mother, and her sister. Her mother on lifelong anticoagulation for history of pulmonary embolisms. Other history includes hypertension, hypothyroidism, GERD/reflux, anxiety, former nicotine dependence, IT band syndrom of bilateral legs. Patient did have a fever of 101.6F on presentation, patient did have a temperature again last night of 101.8. Cardiology was asked initially to see the patient because of bradycardia. She had been on beta fabio at home which was discontinued here. This morning's blood pressure 122/58 with a heart rate in the 80s to 90s. An echocardiogram with Doppler study was performed this morning, results are yet pending. At the time of my examination this morning, patient is complaining of some right sided abdominal pain, breathing is stable, denies any dizziness or lightheadedness. 06/16/2018 Patient was seen and examined this morning, she was noted to have several 2-3 second pauses on the monitor last night, each episode occurred while she was sleeping. This morning her heart rate maintains in the 80s. She is still somewhat short of breath with exertional activities, denies any chest pain, no hemoptysis. She is satting 93% on 2 L of oxygen and is hemodynamically stable. the patient was noted to be febrile last night with a temperature of 101, blood cultures have been collected and are pending at this time. This morning she is afebrile. Patient continues to be on empiric antibiotics in the form of oral Levaquin. He is quite frustrated this morning, and just wants to be discharged to start treatment for her cancer. We did request a TSH level be performed this morning, which came back at 15.7, patient's dose of Synthroid was increased. Objective - Vital Signs Vital signs: Vital Signs Temp 99.7 F H 06/16/18 11:40 Pulse 96 06/16/18 11:40 Resp 20 06/16/18 11:40 BP 125/67 06/16/18 11:40 Pulse Ox 95 06/16/18 11:40 Intake & Output 06/15/18 06/16/18 06/16/18 18:59 06:59 18:59 Intake Total 940 860 Output Total 700 450 Balance 240 410 Weight 99.1 kg 98.9 kg Intake: Oral 940 860 Output: Urine 700 450 Other: Voiding Method Bedpan Toilet Toilet # Voids 1 1 2 # Bowel Movements 1 - Exam PHYSICAL EXAMINATION: GENERAL: 57-year-old female in no acute distress at the time of my examination HEENT: Head is atraumatic, normocephalic. Pupils equal, round. Sclera anicteric. Conjunctiva are clear. Mucous membranes of the mouth are moist. Neck is supple. There is no elevated jugular venous pressure. No carotid bruit is heard. HEART EXAMINATION:Heart S1, S2 normal. No murmur or gallop heard. CHEST EXAMINATION:Lungs are clear to auscultation and precussion. No chest wall tenderness is noted on palpation or with deep breathing. ABDOMEN: Soft, right upper quadrant tenderness, positive hepatomegaly. there is a healing surgical scar on the right side of the abdomen EXTREMITIES:2+ peripheral pulses with trace to 1+ evidence of peripheral edema NEUROLOGIC patient is awake, alert and oriented X3. . - Labs CBC & Chem 7: 06/16/18 05:51 06/16/18 05:51 Labs: Abnormal Lab Results - Last 24 Hours (Table) 06/16/18 06/16/18 06/16/18 Range/Units 05:51 05:51 05:51 WBC 17.7 H (3.8-10.6) k/uL Hgb 10.3 L (11.4-16.0) gm/dL Hct 33.8 L (34.0-46.0) % MCV 78.2 L (80.0-100.0) fL MCH 23.9 L (25.0-35.0) pg MCHC 30.6 L (31.0-37.0) g/dL RDW 17.5 H (11.5-15.5) % Plt Count 495 H (150-450) k/uL Neutrophils # 15.3 H (1.3-7.7) k/uL Sodium 136 L (137-145) mmol/L Glucose 104 H (74-99) mg/dL Calcium 8.3 L (8.4-10.2) mg/dL AST 39 H (14-36) U/L Alkaline Phosphatase 158 H (38-126) U/L Total Protein 5.8 L (6.3-8.2) g/dL Albumin 2.5 L (3.5-5.0) g/dL TSH 15.700 H (0.465-4.680) mIU/L Assessment and Plan Plan: Assessment and Plan : #1. Acute bilateral pulmonary emboli, in segmental and subsegmental branches #2. Acute DVTs in bilateral lower extremities, right proximal popliteal vein, and left proximal femoral vein #3. Dyspnea related to the pulmonary emboli, CT angios chest also showed moderately sized right-sided pleural effusion #4. Recent diagnosis of common bile duct/cholangiocarcinoma, patient underwent a fine-needle aspiration biopsy at [facility], which were reportedly positive for malignant cells. Patient is status post surgical intervention with attempt to remove the tumor, which was unsuccessful. This was done at [facility] by Dr. Bazan, and there was reportedly local spread of the malignancy. Patient also with Dr. Duff and she is supposed to start immunotherapy or chemotherapy sometime next week #5. History of MTHFR gene mutation, patient has a strong family history of pulmonary embolisms and DVTs in both of her mother and sister #6. Leukocytosis, rule out infectious etiology #7. Hypertension #8. Hypothyroidism #9. GERD/reflux #10. 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 Episode of bradycardia, heart rate this morning in the 80s Plan Echocardiogram with Doppler study revealed an ejection fraction of 55-60%. No evidence of pulmonary hypertension. Patient was noted through the night to have episodes of 2-3 second pauses. TSH came back at 15. She also was noted last evening to have a temperature of 101 and blood cultures were obtained. Discharge orders have been written for her today. We have recommended that the patient have a Holter monitor placed on discharge. Follow-up appointment in the office. DNP note has been reviewed, I agree with a documented findings and plan of care. Patient was seen and examined.
== END 2018-06-16 13:00 | disposition home or self-care (01) | DRG 176 ==
LOC: EC 14:05 → 6SEL 16:34
PROVIDERS: ADMIT Internal Medicine; ATTEND Internal Medicine
DX: I26.99 Other pulmonary embolism without acute cor pulmonale (principal); C22.1 Intrahepatic bile duct carcinoma; C79.9 Secondary malignant neoplasm of unspecified site; D68.9 Coagulation defect, unspecified; I82.431 Acute embolism and thrombosis of right popliteal vein; I82.412 Acute embolism and thrombosis of left femoral vein; J90 Pleural effusion, not elsewhere classified; J98.11 Atelectasis; R65.10 Systemic inflammatory response syndrome (SIRS) of non-infectious origin without acute organ dysfunction; K83.09 Other cholangitis; D86.9 Sarcoidosis, unspecified; E03.9 Hypothyroidism, unspecified; F41.1 Generalized anxiety disorder; I08.1 Rheumatic disorders of both mitral and tricuspid valves; I10 Essential (primary) hypertension; K21.9 Gastro-esophageal reflux disease without esophagitis; Z82.49 Family history of ischemic heart disease and other diseases of the circulatory system; Z87.440 Personal history of urinary (tract) infections; Z98.51 Tubal ligation status; F17.201 Nicotine dependence, unspecified, in remission
CPT/HCPCS: 36415; 71046; 71275; 80053; 82550; 82553; 84439; 84443; 84484; 85025; 85610; 85730; 87040; 93306; 93970; 96365; 96366; 96376; 99285

== ENCOUNTER → 2018-07-31 | Outpatient (CLI) | payer BC ==
[2018-07-31 09:09] LABS: Blood Urea Nitrogen 11 mg/dL (7-17)
--- NOTE | 2018-07-31 11:33 | CT ---
EXAMINATION TYPE: CT abdomen w con DATE OF EXAM: 07/31/2018 HISTORY: Follow up scan per patient CT DLP: 1406.7mGycm Automated Exposure Control for Dose Reduction was Utilized. CONTRAST: CT scan of the abdomen and pelvis is performed with IV Contrast, patient injected with 100 mL of Isov ue 300. COMPARISON: 06/13/2018 and 04/13/2018 FINDINGS: LUNG BASES: As seen on the exam of 06/13/2018 there is a partially visualized moderate right pleural e ffusion with associated compressive atelectasis. New small left pleural effusion is now seen. LIVER/GB: There is progression of disease within the liver with the largest mass currently measuring at least 9.0 x 8.6 cm and previously measuring approximately 6.4 x 6.7 cm. Additionally there is an i ll-defined mass within the caudate lobe measuring approximately 6.0 x 2.7 cm questionably subtly retr ospectively seen on the prior measuring only 1.4 cm. A new 1.5 cm cranial extension from the primary mass is seen within segment 7. The liver is elongated extending into the left upper quadrant. No intr ahepatic biliary ductal dilatation. Gallbladder is surgically absent. PANCREAS: Pancreas displays mild pancreatic atrophy. No ductal dilatation. SPLEEN: Overall stable 8 mm splenic lesion and additional punctate splenic lesion are redemonstrated. ADRENALS: No significant abnormality is seen. KIDNEYS: No significant abnormality is seen. BOWEL: No dilated large or small bowel. LYMPH NODES: The previously seen numerous gastrohepatic, portacaval, and periaortic enlarged lymph no bisi have decreased in size with the largest periaortic lymph node previously measuring 1.1 cm in shor t axis and now measuring 8 mm and the largest portacaval lymph node previously measuring 2.1 cm and c urrently measuring 1.4 cm in short axis. OSSEOUS STRUCTURES: Minimal multilevel degenerative changes of the osseous structures. OTHER: There is new moderate volume abdominopelvic ascites and diffuse mesenteric carcinomatosis with soft tissue thickness along the left mid abdomen measuring up to 1.8 cm in thickness. Mesenteric con gestion is also seen. Focal scarring is seen throughout the subcutaneous tissues of the ventral abdom inal wall. Extensive atherosclerosis is noted of the abdominal aorta and its branches. IMPRESSION: Progression of disease. The primary hepatic mass has significantly enlarged measuring 9.0 x 8.6 cm an d previously measuring 6.4 x 6.7 cm. There is a new 1.5 cm cranial extension of the primary mass as w ell as an additional hepatic mass measuring 1.4 cm. 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 There is improved size and appearance of periportal, ga strohepatic, and periaortic adenopathy.
== END | disposition home or self-care (01) ==
LOC: RADPROMAIN 08:14
PROVIDERS: ATTEND Internal Medicine Hematology & Oncology
DX: C24.0 Malignant neoplasm of extrahepatic bile duct (principal); R16.0 Hepatomegaly, not elsewhere classified; C80.0 Disseminated malignant neoplasm, unspecified; R59.0 Localized enlarged lymph nodes
CPT/HCPCS: 82565; 84520; 74160; 36415; Q9967

== ENCOUNTER → 2018-09-17 | Outpatient (CLI) | payer BC, OTHER ==
[~2018-09-17] MED LIST changes: -LACTATED RINGERS 1,000 ML IV SCH; -LIDOCAINE 1% 20 ML VIAL (10MG/ML) FOR IV START INTRADERMA PRN; -Pre Op ABX Message 1 EACH MISC MISCELLANE ONE; +SODIUM CHLORIDE 0.9% 500 ML 500 ML in EMPTY BAG 1 BAG IV PRN
[2018-09-17 16:44] VITALS: BP 143/65; PULSE 79; RESP 18; TEMP 97.9
== END | disposition home or self-care (01) ==
LOC: PROCWHC3 12:05
PROVIDERS: ATTEND Internal Medicine Hematology & Oncology
DX: D64.81 Anemia due to antineoplastic chemotherapy (principal)
CPT/HCPCS: 86900; 86901; 86850; 86920; 36430; 36591; P9016; J1642

== ENCOUNTER 2018-10-05 12:57 | Inpatient (IN) | payer OTHER ==
[2018-10-05] MEDS ORDERED: SODIUM CHLORIDE 0.9% 500 ML 500 ML IV STA (13:10)
[2018-10-05] MEDS ORDERED: SODIUM CHLORIDE 0.9% 1,000 ML IV STA (13:10)
--- NOTE | 2018-10-05 13:14 | ED ---
Weakness HPI - General Stated complaint: Weakness Time Seen by Provider: 10/05/18 13:09 Source: RN notes reviewed, old records reviewed - History of Present Illness Initial comments: This is a 58-year-old female the ER for evaluation. She presents today for evaluation of weakness. No fevers. No recent travel history, no known sick contacts. Patient does currently have CA going to chemotherapy. No current chest pain no shortness of breath no abdominal pain. No recent nausea vomiting or diarrhea. MD Complaint: generalized weakness, lack of energy -: days(s) Location: generalized Severity: mild Severity scale (1-10): 1 Consistency: constant Improves with: none Worsens with: none Context: new medication Associated Symptoms: denies other symptoms - Related Data Home Medications Medication Instructions Recorded Confirmed Calcium Carbonate [Calcium] 600 mg PO DAILY 06/13/18 10/05/18 Cyanocobalamin (Vitamin B-12) 1,000 mg PO BID 10/05/18 10/05/18 [Vitamin B-12] Loratadine 10 mg PO DAILY 10/05/18 10/05/18 Mirtazapine [Remeron] 15 mg PO HS 10/05/18 10/05/18 Prochlorperazine [Compazine] 10 mg PO Q6HR PRN 10/05/18 10/05/18 Ranitidine HCl [Zantac] 150 mg PO BID 10/05/18 10/05/18 Sennosides/Docusate Sodium 1 tab PO BID 10/05/18 10/05/18 [Senna-S Laxative Tablet] traMADol HCL [Ultram] 50 mg PO TID 10/05/18 10/05/18 Previous Rx's Medication Instructions Recorded Apixaban [Eliquis] 5 mg PO BID tab 06/16/18 Levothyroxine Sodium [Synthroid] 150 mcg PO DAILY@0630 #60 tab 06/16/18 Allergies Allergy/AdvReac Type Severity Reaction Status Date / Time sulfamethoxazole Allergy Anaphylaxis Verified 10/05/18 13:18 [From Bactrim] trimethoprim [From Bactrim] Allergy Anaphylaxis Verified 10/05/18 13:18 Review of Systems ROS Statement: Those systems with pertinent positive or pertinent negative responses have been documented in the HPI. ROS Other: All systems not noted in ROS Statement are negative. Past Medical History Past Medical History: Cancer (bile duct), GERD/Reflux, Hypertension, Thyroid Disorder (hypothyroid) Additional Past Medical History / Comment(s): liver bile duct CA, hemorrhoids, slight scoliosis with back pain, experiencing dry heaves, sarcoidosis (2010), IT band syndrome ab legs, sinus infection currently taking antibiotics History of Any Multi-Drug Resistant Organisms: None Reported Past Surgical History: Cholecystectomy, Tonsillectomy, Tubal Ligation Additional Past Surgical History / Comment(s): abdominal surgery to remove tumor unable to remove at this time, liver biopsy, colonoscopies Past Anesthesia/Blood Transfusion Reactions: No Reported Reaction Smoking Status: Former smoker - Past Family History Sister(s) Family Medical History: Blood Disorder, Pulmonary Embolus Additional Family Medical History / Comment(s): MTHFR Mother Family Medical History: Blood Disorder, Deep Vein Thrombosis (DVT), Pulmonary Embolus Additional Family Medical History / Comment(s): 2 healthy children Father Family Medical History: Coronary Artery Disease (CAD) General Exam General appearance: alert, in no apparent distress Head exam: Present: atraumatic, normocephalic, normal inspection Eye exam: Present: normal appearance, PERRL, EOMI. Absent: scleral icterus, conjunctival injection, periorbital swelling ENT exam: Present: normal exam, mucous membranes moist Neck exam: Present: normal inspection. Absent: tenderness, meningismus, lymphadenopathy Respiratory exam: Present: normal lung sounds bilaterally. Absent: respiratory distress, wheezes, rales, rhonchi, stridor Cardiovascular Exam: Present: regular rate, normal rhythm, normal heart sounds. Absent: systolic murmur, diastolic murmur, rubs, gallop, clicks GI/Abdominal exam: Present: soft, normal bowel sounds. Absent: distended, tenderness, guarding, rebound, rigid Extremities exam: Present: normal inspection, full ROM, normal capillary refill. Absent: tenderness, pedal edema, joint swelling, calf tenderness Back exam: Present: normal inspection Neurological exam: Present: alert, oriented X3, CN II-XII intact Psychiatric exam: Present: normal affect, normal mood Skin exam: Present: warm, dry, intact, normal color. Absent: rash Course Vital Signs 10/05/18 10/05/18 10/05/18 12:57 13:03 13:20 Temperature 98.2 F Pulse Rate 111 H Respiratory 18 Rate Blood Pressure 117/63 117/63 124/59 O2 Sat by Pulse 94 L 93 L 91 L Oximetry 10/05/18 10/05/18 10/05/18 13:40 14:00 14:30 Temperature Pulse Rate 93 Respiratory Rate Blood Pressure 126/64 126/64 122/56 O2 Sat by Pulse 98 99 100 Oximetry 10/05/18 10/05/18 10/05/18 14:54 15:00 15:30 Temperature Pulse Rate 94 86 Respiratory 16 Rate Blood Pressure 119/60 119/60 133/64 O2 Sat by Pulse 97 100 Oximetry 10/05/18 16:00 Temperature Pulse Rate 89 Respiratory Rate Blood Pressure 133/64 O2 Sat by Pulse 99 Oximetry - Reevaluation(s) Reevaluation #1: 10/05/18 13:13 Medical record is reviewed and noncontributory Reevaluation #2: 10/05/18 16:36 Patient is anemic we will transfuse, patient has UTI we'll treat with antibiotics EKG Findings - EKG Comments: EKG Findings:: EKG shows sinus tachycardia rate 108, ND 120, QRS 82, QTc 434 Medical Decision Making - Medical Decision Making 58 female the ER for evaluation weakness UTI and anemia. Will admit for transfusion hydration and IV antibiotics. - Lab Data Result diagrams: 10/05/18 13:29 10/05/18 13:29 Lab Results 10/05/18 10/05/18 10/05/18 Range/Units 13:29 13:29 13:29 WBC 11.0 H (3.8-10.6) k/uL RBC 2.64 L (3.80-5.40) m/uL Hgb 7.3 L (11.4-16.0) gm/dL Hct 22.7 L (34.0-46.0) % MCV 85.8 (80.0-100.0) fL MCH 27.5 (25.0-35.0) pg MCHC 32.1 (31.0-37.0) g/dL RDW 17.7 H (11.5-15.5) % Plt Count 311 (150-450) k/uL Neutrophils % 86 % Lymphocytes % 8 % Monocytes % 3 % Eosinophils % 1 % Basophils % 0 % Neutrophils # 9.5 H (1.3-7.7) k/uL Lymphocytes # 0.9 L (1.0-4.8) k/uL Monocytes # 0.3 (0-1.0) k/uL Eosinophils # 0.2 (0-0.7) k/uL Basophils # 0.0 (0-0.2) k/uL Hypochromasia Moderate Poikilocytosis Slight Anisocytosis Slight PT (9.0-12.0) sec INR (<1.2) APTT (22.0-30.0) sec Sodium 131 L (137-145) mmol/L Potassium 3.9 (3.5-5.1) mmol/L Chloride 93 L (98-107) mmol/L Carbon Dioxide 31 H (22-30) mmol/L Anion Gap 7 mmol/L BUN 13 (7-17) mg/dL Creatinine 0.49 L (0.52-1.04) mg/dL Est GFR (CKD-EPI)AfAm >90 (>60 ml/min/1.73 sqM) Est GFR (CKD-EPI)NonAf >90 (>60 ml/min/1.73 sqM) Glucose 162 H (74-99) mg/dL Plasma Lactic Acid Candido (0.7-2.0) mmol/L Calcium 9.6 (8.4-10.2) mg/dL Phosphorus 3.4 (2.5-4.5) mg/dL Magnesium 1.6 (1.6-2.3) mg/dL Total Bilirubin 0.9 (0.2-1.3) mg/dL AST 15 (14-36) U/L ALT 20 (9-52) U/L Alkaline Phosphatase 139 H (38-126) U/L Total Creatine Kinase <20 L (30-135) U/L CK-MB (CK-2) <0.2 (0.0-2.4) ng/mL CK-MB (CK-2) Rel Index Troponin I <0.012 (0.000-0.034) ng/mL NT-Pro-B Natriuret Pep pg/mL Total Protein 6.4 (6.3-8.2) g/dL Albumin 3.1 L (3.5-5.0) g/dL TSH 12.700 H (0.465-4.680) mIU/L Urine Color Urine Appearance (Clear) Urine pH (5.0-8.0) Ur Specific [place] (1.001-1.035) Urine Protein (Negative) Urine Glucose (UA) (Negative) Urine Ketones (Negative) Urine Blood (Negative) Urine Nitrite (Negative) Urine Bilirubin (Negative) Urine Urobilinogen (<2.0) mg/dL Ur Leukocyte Esterase (Negative) Urine RBC (0-5) /hpf Urine WBC (0-5) /hpf Ur Squamous Epith Cells (0-4) /hpf Calcium Oxalate Crystal (None) /hpf Urine Mucus (None) /hpf 10/05/18 10/05/18 10/05/18 Range/Units 13:29 13:29 13:29 WBC (3.8-10.6) k/uL RBC (3.80-5.40) m/uL Hgb (11.4-16.0) gm/dL Hct (34.0-46.0) % MCV (80.0-100.0) fL MCH (25.0-35.0) pg MCHC (31.0-37.0) g/dL RDW (11.5-15.5) % Plt Count (150-450) k/uL Neutrophils % % Lymphocytes % % Monocytes % % Eosinophils % % Basophils % % Neutrophils # (1.3-7.7) k/uL Lymphocytes # (1.0-4.8) k/uL Monocytes # (0-1.0) k/uL Eosinophils # (0-0.7) k/uL Basophils # (0-0.2) k/uL Hypochromasia Poikilocytosis Anisocytosis PT 11.8 (9.0-12.0) sec INR 1.1 (<1.2) APTT 25.4 (22.0-30.0) sec Sodium (137-145) mmol/L Potassium (3.5-5.1) mmol/L Chloride (98-107) mmol/L Carbon Dioxide (22-30) mmol/L Anion Gap mmol/L BUN (7-17) mg/dL Creatinine (0.52-1.04) mg/dL Est GFR (CKD-EPI)AfAm (>60 ml/min/1.73 sqM) Est GFR (CKD-EPI)NonAf (>60 ml/min/1.73 sqM) Glucose (74-99) mg/dL Plasma Lactic Acid [place] 1.8 (0.7-2.0) mmol/L Calcium (8.4-10.2) mg/dL Phosphorus (2.5-4.5) mg/dL Magnesium (1.6-2.3) mg/dL Total Bilirubin (0.2-1.3) mg/dL AST (14-36) U/L ALT (9-52) U/L Alkaline Phosphatase (38-126) U/L Total Creatine Kinase (30-135) U/L CK-MB (CK-2) (0.0-2.4) ng/mL CK-MB (CK-2) Rel Index Troponin I (0.000-0.034) ng/mL NT-Pro-B Natriuret Pep 811 pg/mL Total Protein (6.3-8.2) g/dL Albumin (3.5-5.0) g/dL TSH (0.465-4.680) mIU/L Urine Color Urine Appearance (Clear) Urine pH (5.0-8.0) Ur Specific [place] (1.001-1.035) Urine Protein (Negative) Urine Glucose (UA) (Negative) Urine Ketones (Negative) Urine Blood (Negative) Urine Nitrite (Negative) Urine Bilirubin (Negative) Urine Urobilinogen (<2.0) mg/dL Ur Leukocyte Esterase (Negative) Urine RBC (0-5) /hpf Urine WBC (0-5) /hpf Ur Squamous Epith Cells (0-4) /hpf Calcium Oxalate Crystal (None) /hpf Urine Mucus (None) /hpf 10/05/18 Range/Units 14:43 WBC (3.8-10.6) k/uL RBC (3.80-5.40) m/uL Hgb (11.4-16.0) gm/dL Hct (34.0-46.0) % MCV (80.0-100.0) fL MCH (25.0-35.0) pg MCHC (31.0-37.0) g/dL RDW (11.5-15.5) % Plt Count (150-450) k/uL Neutrophils % % Lymphocytes % % Monocytes % % Eosinophils % % Basophils % % Neutrophils # (1.3-7.7) k/uL Lymphocytes # (1.0-4.8) k/uL Monocytes # (0-1.0) k/uL Eosinophils # (0-0.7) k/uL Basophils # (0-0.2) k/uL Hypochromasia Poikilocytosis Anisocytosis PT (9.0-12.0) sec INR (<1.2) APTT (22.0-30.0) sec Sodium (137-145) mmol/L Potassium (3.5-5.1) mmol/L Chloride (98-107) mmol/L Carbon Dioxide (22-30) mmol/L Anion Gap mmol/L BUN (7-17) mg/dL Creatinine (0.52-1.04) mg/dL Est GFR (CKD-EPI)AfAm (>60 ml/min/1.73 sqM) Est GFR (CKD-EPI)NonAf (>60 ml/min/1.73 sqM) Glucose (74-99) mg/dL Plasma Lactic Acid [place] (0.7-2.0) mmol/L Calcium (8.4-10.2) mg/dL Phosphorus (2.5-4.5) mg/dL Magnesium (1.6-2.3) mg/dL Total Bilirubin (0.2-1.3) mg/dL AST (14-36) U/L ALT (9-52) U/L Alkaline Phosphatase (38-126) U/L Total Creatine Kinase (30-135) U/L CK-MB (CK-2) (0.0-2.4) ng/mL CK-MB (CK-2) Rel Index Troponin I (0.000-0.034) ng/mL NT-Pro-B Natriuret Pep pg/mL Total Protein (6.3-8.2) g/dL Albumin (3.5-5.0) g/dL TSH (0.465-4.680) mIU/L Urine Color Dark Yellow Urine Appearance Cloudy H (Clear) Urine pH 7.0 (5.0-8.0) Ur Specific [place] 1.020 (1.001-1.035) Urine Protein 1+ H (Negative) Urine Glucose (UA) Negative (Negative) Urine Ketones Trace H (Negative) Urine Blood Negative (Negative) Urine Nitrite Positive H (Negative) Urine Bilirubin Negative (Negative) Urine Urobilinogen 2.0 (<2.0) mg/dL Ur Leukocyte Esterase Large H (Negative) Urine RBC 4 (0-5) /hpf Urine WBC >182 H (0-5) /hpf Ur Squamous Epith Cells 13 H (0-4) /hpf Calcium Oxalate Crystal Moderate H (None) /hpf Urine Mucus Occasional H (None) /hpf - Radiology Data Radiology results: report reviewed (CT chest abdomen pelvis shows no change), image reviewed Disposition Clinical Impression: Dehydration, Bile duct cancer, Anemia, Weakness, UTI (urinary tract infection) Disposition: ADMITTED IP TO THIS HOSP Condition: Fair Is patient prescribed a controlled substance at d/c from ED?: No Referrals: Dale Colorado DO [Primary Care Provider] - 1-2 days
[2018-10-05 13:58] LABS: Anisocytosis Slight; Basophils % (A) 0 %; Eosinophils # (A) 0.2 k/uL (0-0.7); Eosinophils % (A) 1 %; HCT 22.7 % (34.0-46.0); HGB 7.3 gm/dL (11.4-16.0); Hypochromasia Moderate; Lymphocytes # (A) 0.9 k/uL (1.0-4.8); Lymphocytes % (A) 8 %; MCH 27.5 pg (25.0-35.0); MCHC 32.1 g/dL (31.0-37.0); MCV 85.8 fL (80.0-100.0); Mean Platelet Volume 6.8; Monocytes # (A) 0.3 k/uL (0-1.0); Monocytes % (A) 3 %; Neutrophils # (A) 9.5 k/uL (1.3-7.7); Neutrophils % (A) 86 %; Platelet Count 311 k/uL (150-450); Poikilocytosis Slight; RBC 2.64 m/uL (3.80-5.40); RDW 17.7 % (11.5-15.5)
[2018-10-05 14:05] LABS: INR 1.1 (<1.2); Partial Thromboplastin Time 25.4 sec (22.0-30.0); Prothrombin Time 11.8 sec (9.0-12.0)
[2018-10-05 14:08] LABS: ALT 20 U/L (9-52); AST 15 U/L (14-36); Albumin 3.1 g/dL (3.5-5.0); Alkaline Phosphatase 139 U/L (38-126); Anion Gap 7 mmol/L; Blood Urea Nitrogen 13 mg/dL (7-17); Calcium 9.6 mg/dL (8.4-10.2); Carbon Dioxide 31 mmol/L (22-30); Chloride 93 mmol/L (98-107); Glucose 162 mg/dL (74-99); Magnesium 1.6 mg/dL (1.6-2.3); Phosphorus 3.4 mg/dL (2.5-4.5); Potassium 3.9 mmol/L (3.5-5.1); Sodium 131 mmol/L (137-145); Total Bilirubin 0.9 mg/dL (0.2-1.3); Total Protein 6.4 g/dL (6.3-8.2)
[2018-10-05 14:17] LABS: Creatine Kinase <20 U/L (30-135)
[2018-10-05 14:30] LABS: Creatine Kinase MB <0.2 ng/mL (0.0-2.4); Troponin I <0.012 ng/mL (0.000-0.034)
[2018-10-05 15:27] LABS: Appearance,Urine Cloudy (Clear); Bilirubin,Urine Negative (Negative); Blood,Urine Negative (Negative); Calcium Oxalate Crystals,Urine Moderate /hpf; Color,Urine Dark Yellow; Glucose,Urine (UA) Negative (Negative); Ketones,Urine Trace (Negative); Leukocyte Esterase,Urine Large (Negative); Mucus,Urine Occasional /hpf; Nitrite,Urine Positive (Negative); Protein,Urine 1+ (Negative); RBC,Urine 4 /hpf (0-5); Squamous Epithelial Cell,Urine 13 /hpf (0-4); WBC,Urine >182 /hpf (0-5)
[2018-10-05] MEDS ORDERED: cefTRIAXone 2,000 MG in SODIUM CHLORIDE 0.9% 100 ML IVPB STA (15:28)
--- NOTE | 2018-10-05 16:18 | CT ---
EXAMINATION TYPE: CT ChestAbdPelvis w con DATE OF EXAM: 10/05/2018 COMPARISON: 06/13/2018 and 07/31/2018 HISTORY: 58-year-old female Liver cancer, unable to walk today, chemo 4 days ago TECHNIQUE: Contiguous axial scanning of the chest, abdomen, and pelvis performed with IV Contrast, pa tient injected with 100 mL of Isovue 300. Delayed images through the kidneys were obtained. Coronal/s agittal reconstructions performed. CT DLP: 962.1 mGycm Automated exposure control for dose reduction was used. FINDINGS: Chest: Heart normal size without pericardial effusion. Aorta normal caliber with mild atherosclerotic arch calcifications and conventional arch vessel branc magdaleno anatomy. Right anterior chest wall injection port with catheter tip near the cavoatrial junction. No thoracic lymphadenopathy by CT size criteria. Moderate right greater than left pleural effusions with adjacent atelectasis. Increased on the left n ow. Consolidation subpleural region of the posterior right lower lobe is unchanged from 07/31/2018. Possible 6 mm right midlung pulmonary nodule, axial image 22 tibia reassess at follow-up. ABDOMEN: Redemonstrated large heterogeneously enhancing right liver lobe mass measuring up to 10.7 cm. Heterog eneous enhancement in the caudate lobe could represent perfusional variation and less likely addition al mass. Moderate abdominopelvic ascites fluid is largely unchanged from 07/31/2018. Cholecystectomy clips. Ad renal glands, kidneys, and mildly atrophic pancreas show no gross anomaly. Several subcentimeter hypo densities in the spleen are nonspecific and were present previously. No dilated small bowel or free air. No mesenteric or retroperitoneal lymphadenopathy seen. Moderate atherosclerotic calcifications within the infrarenal abdominal aorta. Scattered mild stool. Left hemicolonic diverticulosis, greatest in the proximal to mid sigmoid colon. The rectum is distended with solid stool measuring up to 5.8 cm wide. Pelvis: Uterus and ovaries are visualized. Ascites fluid continues into the pelvis. Bladder nondistended. No pelvic lymphadenopathy seen. Bones: Degenerative changes at the pubic symphysis. No osseous destructive process seen. IMPRESSION: 1. LARGE HETEROGENEOUSLY ENHANCING RIGHT LIVER LOBE MASS MEASURING UP TO 10.7 CM, NOT SIGNIFICANTLY C HANGED FROM 07/31/2018. 2. CONTINUED MODERATE ABDOMINOPELVIC ASCITES. 3. PROMINENT SOLID STOOL DISTENDING THE RECTUM UP TO 5.8 CM WIDE. CORRELATE TO EXCLUDE FECAL IMPACTIO N. 4. CONTINUED MODERATE RIGHT GREATER THAN LEFT PLEURAL EFFUSIONS, INCREASED ON THE LEFT. RIGHT BASILAR OPACITY IS UNCHANGED AND COULD REPRESENT EITHER ATELECTASIS OR INFILTRATE. 5. FOLLOW-UP RECOMMENDED FOR A POSSIBLE NEW 6 MM RIGHT MID LUNG PULMONARY NODULE. 6. LEFT HEMICOLONIC DIVERTICULOSIS.
[2018-10-05] MEDS ORDERED: MORPHINE SULFATE 4 MG/ML SYRINGE IVP STA (16:33)
[2018-10-05] MEDS ORDERED: MORPHINE SULFATE 4 MG/ML SYRINGE IVP PRN (16:33)
[2018-10-05] MEDS: CYANOCOBALAMIN 500 MCG TAB PO SCH (22:15)
[2018-10-05] MEDS: traMADol 50 MG TAB PO SCH (22:15)
[2018-10-05] MEDS: FAMOTIDINE 20 MG TAB PO SCH (22:16)
[2018-10-05] MEDS: APIXABAN 5 MG TAB PO SCH (22:16)
[2018-10-06] MEDS: LEVOTHYROXINE 75 MCG TAB PO SCH (05:00)
[2018-10-06] MEDS: FAMOTIDINE 20 MG TAB PO SCH ×2 (08:26→20:40)
[2018-10-06] MEDS: CYANOCOBALAMIN 500 MCG TAB PO SCH ×2 (08:27→20:40)
[2018-10-06] MEDS: APIXABAN 5 MG TAB PO SCH ×2 (08:27→20:39)
[2018-10-06] MEDS: traMADol 50 MG TAB PO SCH ×3 (08:27→23:11)
[2018-10-06] MEDS: LORATADINE 10 MG TAB PO SCH (08:27)
[2018-10-06] MEDS ORDERED: ENOXAPARIN 40 MG/0.4 ML SYRINGE SQ SCH (09:00)
[2018-10-06] MEDS: SENNOSIDES 8.6 MG TAB PO SCH (12:48)
[2018-10-06] MEDS: CALCIUM CARBONATE 500 MG CHEWABLE PO SCH (12:48)
[2018-10-06 15:16] VITALS: BMI 27.4
[2018-10-06] MEDS: HYOSCYAMINE SULFATE 0.375 MG TAB.ER.12H PO SCH ×2 (15:27→20:39)
--- NOTE | 2018-10-06 15:38 | P.CRDCN ---
History of Present Illness History of present illness: This is a pleasant 58-year-old female past medical history significant for metastatic cholangiocarcinoma, bilateral pulmonary emboli and lower extremity DVT in June and long-term anticoagulation, hypothyroidism and circumflex doses. She is currently undergoing chemotherapy more for palliative purposes per the patient. She presented to the hospital symptoms of increased weakness and generalized fatigue with poor oral intake. She states she has not eaten for the previous 4 days. We have been asked to see her in consultation for sinus pauses noted on telemetry tracings last night. Per her friend that was sleeping in the room with her she states that she snoring rather significantly and then there would be a brief period of apnea and she would then gasp for air. She denies any symptoms of dizziness, shortness of breath, chest pain, palpitations, nausea, vomiting or diaphoresis. She was seen in consultation for similar episode in June and at that time beta fabio therapy was stopped. She has never been diagnosed with sleep apnea. EKG obtained yesterday on admission reveals sinus tachycardia heart rate 108. Telemetry tracings reviewed and reveal sinus bradycardia significant pauses noted with junctional beats. CT of the abdomen and pelvis reveals large heterogenous enhancing right liver lobe mass, continued moderate abdominal pelvic ascites, prominent stool in the rectum, moderate right greater than left pleural effusions, possible new right mid lung pulmonary nodule. Current cardiac medications include Eliquis 5 mg twice a day. Laboratory data reviewed , WBC 11, hemoglobin 7.3, platelets 311, sodium 131, potassium 3.9, creatinine 0.49, magnesium 1.6, cardiac enzymes negative 1, NT proBNP 811, TSH 12.7. Last night an A-team was called and the patient declined to be transferred to ICU or step-down and wishes to discuss code status with oncology team. At the time of my exam: CONSTITUTIONAL: Denies fever. Denies chills. EYES: Denies blurred vision. Denies vision changes. Denies eye pain. EARS, NOSE, MOUTH & THROAT: Denies headache. Denies sore throat. Denies ear pain. CARDIOVASCULAR: Denies chest pain. Denies shortness of breath. Denies orthopnea. Denies PND. Denies palpitations. RESPIRATORY: Denies cough. GASTROINTESTINAL: Denies abdominal pain. Denies diarrhea. Denies constipation. Denies nausea. Denies vomiting. MUSCULOSKELETAL: Denies myalgias. INTEGUMENTARY: Denies pruitis. Denies rash. NEUROLOGIC: Denies numbness. Denies tingling. Denies weakness. PSYCHIATRIC: Denies anxiety. Denies depression. ENDOCRINE: Denies fatigue. Denies weight change. Denies polydipsia. Denies polyurina. GENITOURINARY: Denies burning, hematuria or urgency with micturation. HEMATOLOGIC: Denies history of anemia. Denies bleeding. Blood pressure 122/73 heart rate 77 afebrile maintaining oxygen saturation on room air GENERAL: This is a 58-year-old female in no apparent distress at the time of my examination. HEENT: Head is atraumatic, normocephalic. Pupils are equal, round. Sclerae anicteric. Conjunctivae are clear. Mucous membranes of the mouth are moist. Neck is supple. There is no jugular venous distention. No carotid bruit is heard. LUNGS: Clear to auscultation no wheezes, rales or rhonchi. No chest wall tenderness is noted on palpation or with deep breathing. HEART: Regular rate and rhythm without murmurs, rubs or gallops. S1 and S2 heard. ABDOMEN: Soft, nontender. Bowel sounds are heard. No organomegaly noted. EXTREMITIES: No evidence of peripheral edema and no calf tenderness noted. VASCULAR: Radial and dorsalis pedis pulses palpated, no evidence of clubbing. NEUROLOGIC: Patient is awake, alert and oriented x3. ASSESSMENT Significant sinus bradycardia at night while sleeping with sinus pauses and junctional beats, asymptomatic. Metastatic cholangiocarcinoma Hypothyroidism History bilateral PE and DVT on meterman anticoagulation PLAN Obtain limited echocardiogram to assess LV systolic function and for any pericardial effusion. Add her on a small dose of hycosamine 0.375 mg BID for decrease vagal response while sleeping. Give first dose now. TSH elevated, recommend increasing her levothyroxine per primary care team. Ongoing telemetry monitoring. Lengthy discussion had regarding her code status and wishes moving forward for invasive procedures. She would not like to have any procedures or pacemakers if this should be persistent. Medical therapy will be pursued. Thank you kindly for this consultation. Nurse Practitioner note has been reviewed, I agree with a documented findings and plan of care. Patient was seen and examined. Past Medical History Past Medical History: Cancer, GERD/Reflux, Hypertension, Thyroid Disorder Additional Past Medical History / Comment(s): liver bile duct CA-receiveing chemo-latest tx was 09-30-18, hemorrhoids, slight scoliosis with back pain, sarcoidosis (2009), IT band syndrome ab legs, sinus infection History of Any Multi-Drug Resistant Organisms: None Reported Past Surgical History: Cholecystectomy, Tonsillectomy, Tubal Ligation Additional Past Surgical History / Comment(s): abdominal surgery to remove tumor unable to remove at this time, liver biopsy, colonoscopies, rt chest port for chemo. Past Anesthesia/Blood Transfusion Reactions: No Reported Reaction Smoking Status: Former smoker - Past Family History Sister(s) Family Medical History: Blood Disorder, Pulmonary Embolus Additional Family Medical History / Comment(s): MTHFR Mother Family Medical History: Blood Disorder, Deep Vein Thrombosis (DVT), Pulmonary Embolus Additional Family Medical History / Comment(s): 2 healthy children Father Family Medical History: Coronary Artery Disease (CAD) Medications and Allergies Home Medications Medication Instructions Recorded Confirmed Type Calcium Carbonate [Calcium] 600 mg PO DAILY 06/13/18 10/05/18 History Apixaban [Eliquis] 5 mg PO BID tab 06/16/18 10/05/18 Rx Levothyroxine Sodium [Synthroid] 150 mcg PO DAILY@0630 #60 tab 06/16/18 Rx Cyanocobalamin (Vitamin B-12) 1,000 mg PO BID 10/05/18 10/05/18 History [Vitamin B-12] Loratadine 10 mg PO DAILY 10/05/18 10/05/18 History Mirtazapine [Remeron] 15 mg PO HS 10/05/18 10/05/18 History Prochlorperazine [Compazine] 10 mg PO Q6HR PRN 10/05/18 10/05/18 History Ranitidine HCl [Zantac] 150 mg PO BID 10/05/18 10/05/18 History Sennosides/Docusate Sodium 1 tab PO BID 10/05/18 10/05/18 History [Senna-S Laxative Tablet] traMADol HCL [Ultram] 50 mg PO TID 10/05/18 10/05/18 History Allergies Allergy/AdvReac Type Severity Reaction Status Date / Time sulfamethoxazole Allergy Anaphylaxis Verified 10/05/18 13:18 [From Bactrim] trimethoprim [From Bactrim] Allergy Anaphylaxis Verified 10/05/18 13:18 Physical Exam Vitals: Vital Signs Temp Pulse Pulse Resp BP BP Pulse Ox 10/06/18 12:01 97.7 F 77 16 122/73 100 10/06/18 05:00 97.3 F L 83 16 141/65 96 10/05/18 22:12 97.7 F 92 16 125/58 93 L 10/05/18 20:57 98.1 F 92 16 130/62 94 L 10/05/18 20:27 97.8 F 93 16 127/60 93 L 10/05/18 20:17 97.3 F L 87 16 129/60 93 L 10/05/18 19:10 97.7 F 86 16 144/53 93 L 10/05/18 17:30 83 130/60 98 10/05/18 17:00 84 134/58 99 10/05/18 16:30 82 126/60 99 10/05/18 16:00 89 133/64 99 10/05/18 15:30 133/64 10/05/18 15:00 86 119/60 100 10/05/18 14:54 94 16 119/60 97 10/05/18 14:30 122/56 100 Intake and Output 10/05/18 10/06/18 10/06/18 22:59 06:59 14:59 Intake Total 310 590 Balance 310 590 Intake: Oral 590 Blood Product 310 Rc As-1 Unit 310 [id number] Other: Voiding Method Toilet Toilet # Voids 2 2 Results 10/05/18 13:29 10/05/18 13:29 Cardiac Enzymes 10/05/18 Range/Units 13:29 CK-MB (CK-2) <0.2 (0.0-2.4) ng/mL Troponin I <0.012 (0.000-0.034) ng/mL Current Medications Generic Name Dose Route Start Last Admin Trade Name Cristiane PRN Reason Stop Dose Admin Apixaban 5 mg 10/05/18 21:00 10/06/18 08:27 Eliquis PO 5 mg BID KAMILA Administration Calcium Carbonate/Glycine 500 mg 10/06/18 12:00 10/06/18 12:48 Tums PO 500 mg 1200 KAMILA Administration Cyanocobalamin 1,000 mcg 10/05/18 21:00 10/06/18 08:27 Vitamin B-12 PO 1,000 mcg BID KAMILA Administration Famotidine 20 mg 10/05/18 21:00 10/06/18 08:26 Pepcid PO 20 mg BID KAMILA Administration Hyoscyamine 0.375 mg 10/06/18 14:15 Levbid PO BID [facility] Ceftriaxone Sodium 1,000 mg/ 50 mls @ 100 mls/hr 10/06/18 09:00 10/06/18 08: 28 Sodium Chloride IVPB 100 mls/hr Q12HR KAMILA Administration Levothyroxine Sodium 150 mcg 10/06/18 06:30 10/06/18 05:00 Synthroid PO 150 mcg DAILY@0630 KAMILA Administration Loratadine 10 mg 10/06/18 09:00 10/06/18 08:27 Claritin PO 10 mg DAILY [facility] Administration Morphine Sulfate 4 mg 10/05/18 16:33 Morphine Sulfate (Inj) IVP Q4HR PRN Pain Prochlorperazine Maleate 10 mg 10/05/18 19:19 Compazine PO Q6HR PRN Nausea Senna 8.6 mg 10/06/18 12:30 10/06/18 12:48 Senokot PO 8.6 mg DAILY [facility] Administration Tramadol HCl 50 mg 10/05/18 22:00 10/06/18 08:27 Ultram PO 50 mg TID [facility] Administration Intake and Output 10/05/18 10/06/18 10/06/18 22:59 06:59 14:59 Intake Total 310 590 Balance 310 590 Intake: Oral 590 Blood Product 310 Rc As-1 Unit 310 [id number] Other: Voiding Method Toilet Toilet # Voids 2 2 10/05/18 13:29 10/05/18 13:29
[2018-10-06 16:13] LABS: T4, Free (Free Thyroxine) 2.07 ng/dL (0.78-2.19)
--- NOTE | 2018-10-06 19:45 | P.CONS ---
History of Present Illness - Reason for Consult Consult date: 10/06/18 on treatment for pancreatic adenocarcinoma Requesting physician: Andrew Khanna - Chief Complaint severe weakness, anorexia - History of Present Illness Deena is a very pleasant female pt of Dr. Duff who initially presented with UTI in February 2018, this was treated with 2 courses of antibiotics , however, she had some RUQ discomfort along with dry cough which led to further work up. CT of chest/abdomen 04/13/18 revealed 6.4 x 6.7 x 8.9cm lobulated complex right lobe, borderline enlarged portocaval adenopathy,largest 2 cm and borderline enlarged gastrohepatic ligament nodes up to 1 cm, no pancreatic mass, there was small lung nodules which were stable compared to CT scan done in 2011, felt to be secondary to known sarcoidosis. 04/14/18 she had U/ S guided liver biopsy which was positive for moderately differentiated carcinoma , IHC stain were consistent with pancreaticobiliary origin, AFP was 28.2 and CA19-9 was 2641 on 04/13/18. She was referred to Dr. Ramos at [facility] where she underwent exploratory surgery on 05/13/18 for potential resection, unfortunately she was found to have positive peritoneal fluid and diaphragmatic involvement. She developed bilateral lower extremities DVT and PE on 06/12/18, currently on eliquis. She started [id number] on 06/29/18. Treatment follow up CT 07/31/18 revealed further progression of her disease, peritoneal lesions, enlarging liver lesions. She was started on single agent gemzar and is s/p 3 cycles, days 1 and 8. Her last treatment was 5 days ago. Since that time patient has had progressive weakness, to the point where she could no longer walk, she denied any urinary tract symptoms but she has been battling frequent recurrent infections, and her UA on admit was grossly abnormal. Denied fever, chills, she did have nausea, anorexia, no vomiting, is short of breath with exertion, denies chest pain, palpitations, abdominal pain, suprapubic pain, she does have to treat constipation aggressively, no lower extremity swelling, rashes or bleeding. Review of Systems 14 point review of systems is as stated in HPI Past Medical History Past Medical History: Cancer, GERD/Reflux, Hypertension, Thyroid Disorder Additional Past Medical History / Comment(s): liver bile duct CA-receiveing chemo-latest tx was 09-30-18, hemorrhoids, slight scoliosis with back pain, sarcoidosis (2010), IT band syndrome ab legs, sinus infection History of Any Multi-Drug Resistant Organisms: None Reported Past Surgical History: Cholecystectomy, Tonsillectomy, Tubal Ligation Additional Past Surgical History / Comment(s): abdominal surgery to remove tumor unable to remove at this time, liver biopsy, colonoscopies, rt chest port for chemo. Past Anesthesia/Blood Transfusion Reactions: No Reported Reaction Past Psychological History: Anxiety Smoking Status: Former smoker Past Alcohol Use History: Rare Past Drug Use History: None Reported - Past Family History Sister(s) Family Medical History: Blood Disorder, Pulmonary Embolus Additional Family Medical History / Comment(s): MTHFR Mother Family Medical History: Blood Disorder, Deep Vein Thrombosis (DVT), Pulmonary Embolus Additional Family Medical History / Comment(s): 2 healthy children Father Family Medical History: Coronary Artery Disease (CAD) Medications and Allergies Home Medications Medication Instructions Recorded Confirmed Type Calcium Carbonate [Calcium] 600 mg PO DAILY 06/13/18 10/05/18 History Apixaban [Eliquis] 5 mg PO BID tab 06/16/18 10/05/18 Rx Levothyroxine Sodium [Synthroid] 150 mcg PO DAILY@0630 #60 tab 06/16/18 Rx Cyanocobalamin (Vitamin B-12) 1,000 mg PO BID 10/05/18 10/05/18 History [Vitamin B-12] Loratadine 10 mg PO DAILY 10/05/18 10/05/18 History Mirtazapine [Remeron] 15 mg PO HS 10/05/18 10/05/18 History Prochlorperazine [Compazine] 10 mg PO Q6HR PRN 10/05/18 10/05/18 History Ranitidine HCl [Zantac] 150 mg PO BID 10/05/18 10/05/18 History Sennosides/Docusate Sodium 1 tab PO BID 10/05/18 10/05/18 History [Senna-S Laxative Tablet] traMADol HCL [Ultram] 50 mg PO TID 10/05/18 10/05/18 History Allergies Allergy/AdvReac Type Severity Reaction Status Date / Time sulfamethoxazole Allergy Anaphylaxis Verified 10/05/18 13:18 [From Bactrim] trimethoprim [From Bactrim] Allergy Anaphylaxis Verified 10/05/18 13:18 Physical Exam Vitals: Vital Signs Temp Pulse Pulse Resp BP BP Pulse Ox 10/06/18 12:01 97.7 F 77 16 122/73 100 10/06/18 05:00 97.3 F L 83 16 141/65 96 10/05/18 22:12 97.7 F 92 16 125/58 93 L 10/05/18 20:57 98.1 F 92 16 130/62 94 L 10/05/18 20:27 97.8 F 93 16 127/60 93 L 10/05/18 20:17 97.3 F L 87 16 129/60 93 L Intake and Output 10/06/18 10/06/18 10/06/18 06:59 14:59 22:59 Intake Total 590 Balance 590 Intake: Oral 590 Other: Voiding Method Toilet Toilet Toilet # Voids 2 2 Weight 72.575 kg - Constitutional General appearance: cooperative, no acute distress, obese - EENT Eyes: anicteric sclerae, EOMI, normal appearance ENT: no hard of hearing, hearing grossly normal, no NA/AT, normal oropharynx, no other, no pharyngeal erythema, no thrush, no tonsillar exudates, no tonsillar swelling - Neck Neck: no lymphadenopathy - Respiratory Respiratory: bilateral: CTA - Cardiovascular Rhythm: regular Heart sounds: normal: S1, S2 Abnormal Heart Sounds: no systolic murmur, no diastolic murmur, no rub, no S3 Gallop, no S4 Gallop, no click, no other leg Peripheral Edema: bilateral: Trace - Gastrointestinal ullness palpated in epigastric area and right upper quadrant, mild tenderness, mild distension - Integumentary Integumentary: pale - Neurologic Neurologic: CNII-XII intact - Musculoskeletal Musculoskeletal: generalized weakness - Psychiatric Psychiatric: A&O x's 3, appropriate affect, intact judgment & insight Results CBC & Chem 7: 10/05/18 13:29 10/05/18 13:29 Labs: Abnormal Lab Results - Last 24 Hours (Table) 10/05/18 10/06/18 Range/Units 13:29 13:29 Free T3 pg/mL 2.5 L (2.8-5.3) pg/ml Crossmatch See Detail Microbiology - Last 24 Hours (Table) 10/05/18 14:43 Urine Culture - Preliminary Urine,Voided CT scan - abdomen: report reviewed CT scan - chest: report reviewed CT scan - pelvis: report reviewed Assessment and Plan (1) Bile duct cancer Narrative/Plan: Patient is status post [address] Patient's CT CAP appears overall stable, new 6mm rt pulm nodule. This pulmonary nodule can continue to be monitored. Patient does state moderate to severe physical and hematological side effects with the Gemzar. Dose may need adjustment. We will get CT results to Dr. Duff , then he and patient can decide how they would like to proceed from here. Next treatment due 10/14. This will be on hold until patient has recovered from acute infection and had some time to rehabilitate. Current Visit: Yes Status: Acute Priority: High Code(s): C24.0 - MALIGNANT NEOPLASM OF EXTRAHEPATIC BILE DUCT SNOMED Code(s): 150881641 (2) UTI (urinary tract infection) Narrative/Plan: C&S pending, empiric antibiotics ordered Current Visit: Yes Status: Acute Priority: High Code(s): N39.0 - URINARY TRACT INFECTION, SITE NOT SPECIFIED SNOMED Code(s): 43183718 (3) Weakness Narrative/Plan: Multifactorial including chemotherapy, anemia, disease and infection. PT/OT ordered for evaluation and treatment. Dietitian consulted to optimize pt diet Current Visit: Yes Status: Acute Code(s): R53.1 - WEAKNESS SNOMED Code(s) : 35070019 (4) Anemia Narrative/Plan: Will check last anemia workup, labs will be ordered as appropriate. Transfuse for hemoglobin less than 7 or if symptomatic Current Visit: Yes Status: Acute Priority: High Code(s): D64.9 - ANEMIA, UNSPECIFIED SNOMED Code(s): 191268931
--- NOTE | 2018-10-06 20:04 | P.HPIM ---
History of Present Illness H&P Date: 10/06/18 Chief Complaint: Severe anemia, UTI with sepsis, biliary cancer, severe weakness , abnormal b 58-year-old female one of Dr. Thomas patient who of seen last few month ago for DVT. Patient was diagnosed with biliary tumor was diagnosed with common duct CA ended up being seen at [facility] and ended up going for Whipple surgery in successful in the middle of the surgery decided it has more involvement than intended patient was closed up and turn to oncology for chemotherapy. Patient has been on chemotherapy all along seen Dr. Duff on regular basis had her last chemo this last week. Patient presented to [facility] on 10/05/2018 feeling severely weak tired not been able template and walk had nausea feeling with no vomiting had no energy and overall doesn't feel good had more polyuria and no dysuria slight lower abdominal discomfort. Her workup at [facility] showed severe anemia with hemoglobin in the sevens level was close to 10 recently also her urine was very positive with multiple WBC and RBC. Patient was diagnosed with UTI and probably sepsis culture was done results still pending patient was started on empiric IV antibiotics with Rocephin 1 g daily hospitalized consult oncology and decide whether need to do blood transfusion or not based on the progression of her hemoglobin. Review of Systems CONSTITUTIONAL: Well-developed pale does not look in any res. EYES: No icterus sclerae, no conjunctivitis. EARS, NOSE, MOUTH, THROAT, and FACE: No sore throat, lymphadenopathy, carotid bruits or deformity. RESPIRATORY: No SOB cough or wheezes. CARDIOVASCULAR: No CP, Palpitation, PND, Orthopnea, or angina. GASTROINTESTINAL: mild abdominal discomfort GENITOURINARY: positive UTI with burning discomfort freque. INTEGUMENT/BREAST: Negative for any muscular injury with mild osteoarthritis.. HEMATOLOGIC/LYMPHATIC: Negative for bleed or purpura. MUSCULOSKELTAL: Negative for Myalgia or arthralgia. NEURLOGICAL: No LOC, Sz or syncope, blurred vision dizziness or abnormality.. BEHAVIORAL/PSYCH: Negative. ENDOCRINE: Negative. Past Medical History Past Medical History: Cancer, GERD/Reflux, Hypertension, Thyroid Disorder Additional Past Medical History / Comment(s): liver bile duct CA-receiveing chemo-latest tx was 09-30-18, hemorrhoids, slight scoliosis with back pain, sarcoidosis (2009), IT band syndrome ab legs, sinus infection History of Any Multi-Drug Resistant Organisms: None Reported Past Surgical History: Cholecystectomy, Tonsillectomy, Tubal Ligation Additional Past Surgical History / Comment(s): abdominal surgery to remove tumor unable to remove at this time, liver biopsy, colonoscopies, rt chest port for chemo. Past Anesthesia/Blood Transfusion Reactions: No Reported Reaction Smoking Status: Former smoker - Past Family History Sister(s) Family Medical History: Blood Disorder, Pulmonary Embolus Additional Family Medical History / Comment(s): MTHFR Mother Family Medical History: Blood Disorder, Deep Vein Thrombosis (DVT), Pulmonary Embolus Additional Family Medical History / Comment(s): 2 healthy children Father Family Medical History: Coronary Artery Disease (CAD) Medications and Allergies Home Medications Medication Instructions Recorded Confirmed Type Calcium Carbonate [Calcium] 600 mg PO DAILY 06/13/18 10/05/18 History Apixaban [Eliquis] 5 mg PO BID tab 06/16/18 10/05/18 Rx Levothyroxine Sodium [Synthroid] 150 mcg PO DAILY@0630 #60 tab 06/16/18 Rx Cyanocobalamin (Vitamin B-12) 1,000 mg PO BID 10/05/18 10/05/18 History [Vitamin B-12] Loratadine 10 mg PO DAILY 10/05/18 10/05/18 History Mirtazapine [Remeron] 15 mg PO HS 10/05/18 10/05/18 History Prochlorperazine [Compazine] 10 mg PO Q6HR PRN 10/05/18 10/05/18 History Ranitidine HCl [Zantac] 150 mg PO BID 10/05/18 10/05/18 History Sennosides/Docusate Sodium 1 tab PO BID 10/05/18 10/05/18 History [Senna-S Laxative Tablet] traMADol HCL [Ultram] 50 mg PO TID 10/05/18 10/05/18 History Allergies Allergy/AdvReac Type Severity Reaction Status Date / Time sulfamethoxazole Allergy Anaphylaxis Verified 10/05/18 13:18 [From Bactrim] trimethoprim [From Bactrim] Allergy Anaphylaxis Verified 10/05/18 13:18 Physical Exam Vitals: Vital Signs Temp Pulse Pulse Resp BP BP Pulse Ox 10/06/18 12:01 97.7 F 77 16 122/73 100 10/06/18 05:00 97.3 F L 83 16 141/65 96 10/05/18 22:12 97.7 F 92 16 125/58 93 L 10/05/18 20:57 98.1 F 92 16 130/62 94 L 10/05/18 20:27 97.8 F 93 16 127/60 93 L 10/05/18 20:17 97.3 F L 87 16 129/60 93 L 10/05/18 19:10 97.7 F 86 16 144/53 93 L 10/05/18 17:30 83 130/60 98 10/05/18 17:00 84 134/58 99 10/05/18 16:30 82 126/60 99 10/05/18 16:00 89 133/64 99 10/05/18 15:30 133/64 10/05/18 15:00 86 119/60 100 10/05/18 14:54 94 16 119/60 97 10/05/18 14:30 122/56 100 10/05/18 14:00 93 126/64 99 Intake and Output 10/05/18 10/06/18 10/06/18 22:59 06:59 14:59 Intake Total 310 590 Balance 310 590 Intake: Oral 590 Blood Product 310 Rc As-1 Unit 310 [id number] Other: Voiding Method Toilet Toilet # Voids 2 2 General Appearance: Alert, cooperative, no distress, appears stated age.with mild pale skin Neck HEENT: Supple, no lymphadenopathy, no thyroid enlargement, no carotid bruits. Lungs: Clear to auscultation without crackles or wheezes no rhonchi, no deformity. Chest Wall: Chest wall normal expansion with deep inspiration no tenderness and no deformity was found on exam, no costochondral pain or discomfort. Heart: Regular rate and rhythm, S1, S2 normal, no murmur, rub or gallop. Back: Symmetric, no curvature, ROM normal, no CVA tenderness. Abdomen:soft positive bowel sounds there is an incision ty with mild tenderness in epiga Extremities: Extremities normal, atraumatic, no cyanosis or edema. Pulses: 2+ and symmetric. Skin: Skin color, texture, tugor normal, no rashes or lesions. Neurologic: Alert oriented x3 cranial nerves II through XII intact, no motor deficit, no abnormal balance or gait. Results CBC & Chem 7: 10/05/18 13:29 10/05/18 13:29 Labs: Abnormal Lab Results - Last 24 Hours (Table) 10/05/18 10/05/18 10/05/18 Range/Units 13:29 13:29 13:29 WBC 11.0 H (3.8-10.6) k/uL RBC 2.64 L (3.80-5.40) m/uL Hgb 7.3 L (11.4-16.0) gm/dL Hct 22.7 L (34.0-46.0) % RDW 17.7 H (11.5-15.5) % Neutrophils # 9.5 H (1.3-7.7) k/uL Lymphocytes # 0.9 L (1.0-4.8) k/uL Sodium 131 L (137-145) mmol/L Chloride 93 L (98-107) mmol/L Carbon Dioxide 31 H (22-30) mmol/L Creatinine 0.49 L (0.52-1.04) mg/dL Glucose 162 H (74-99) mg/dL Alkaline Phosphatase 139 H (38-126) U/L Total Creatine Kinase <20 L (30-135) U/L Albumin 3.1 L (3.5-5.0) g/dL TSH 12.700 H (0.465-4.680) mIU/L Urine Appearance (Clear) Urine Protein (Negative) Urine Ketones (Negative) Urine Nitrite (Negative) Ur Leukocyte Esterase (Negative) Urine WBC (0-5) /hpf Ur Squamous Epith Cells (0-4) /hpf Calcium Oxalate Crystal (None) /hpf Urine Mucus (None) /hpf Crossmatch 10/05/18 10/05/18 Range/Units 13:29 14:43 WBC (3.8-10.6) k/uL RBC (3.80-5.40) m/uL Hgb (11.4-16.0) gm/dL Hct (34.0-46.0) % RDW (11.5-15.5) % Neutrophils # (1.3-7.7) k/uL Lymphocytes # (1.0-4.8) k/uL Sodium (137-145) mmol/L Chloride (98-107) mmol/L Carbon Dioxide (22-30) mmol/L Creatinine (0.52-1.04) mg/dL Glucose (74-99) mg/dL Alkaline Phosphatase (38-126) U/L Total Creatine Kinase (30-135) U/L Albumin (3.5-5.0) g/dL TSH (0.465-4.680) mIU/L Urine Appearance Cloudy H (Clear) Urine Protein 1+ H (Negative) Urine Ketones Trace H (Negative) Urine Nitrite Positive H (Negative) Ur Leukocyte Esterase Large H (Negative) Urine WBC >182 H (0-5) /hpf Ur Squamous Epith Cells 13 H (0-4) /hpf Calcium Oxalate Crystal Moderate H (None) /hpf Urine Mucus Occasional H (None) /hpf Crossmatch See Detail Microbiology - Last 24 Hours (Table) 10/05/18 14:43 Urine Culture - Preliminary Urine,Voided Thrombosis Risk Factor Assmnt - DVT/VTE Prophylaxis DVT/VTE Prophylaxis: Pharmacologic Prophylaxis ordered, Mechanical Prophylaxis ordered - Choose All That Apply Any of the Below Risk Factors Present?: Yes Each Factor Represents 1 point: Age 41-60 years, Obesity (BMI >25) Thrombosis Risk Factor Assessment Total Risk Factor Score: 2 Thrombosis Risk Factor Assessment Level: Low Risk Assessment and Plan Plan: 1 UTI and sepsis: Patient here and was very positive blood culture was done urine culture still pending patient was started on Rocephin 1 g daily continue hydration and supportive care. 2 severe generalized weakness: Combination of anemia, UTI and sepsis and hypothyroidism her TSH was still abnormal Synthroid might need to be adjusted. 3 severe anemia: Most likely iron deficiency despite the newly chemotherapy patient does not have full suppression of the bone marrow continue iron supplement and if needed iron infusion can be done hematology was consulted. 4 history of biliary cancer: Has been on chemotherapy seen oncology on regular basis. 5 hypothyroidism: Has been on Synthroid 150 g daily maybe patient is having absorption is to initiate this point to keep watching her TSH and free T4 every few weeks. 6 hypertension: Remain well controlled currently she is not or any medication at this point. 7 history of clotting factor and DVT of the leg patient still on request 5 mg twice a day resume medication at this point unless there is an active ongoing bleed there is no reason to hold it. 8 chronic pain syndrome: Secondary to recurrent cancer continue patient on Ultram 50 mg 3 times a day. 9 GI prophylaxis: Patient has been on Zantac 150 grams twice a day resume medication or switch to Pepcid 20 mg twice a day. 10 DVT prophylaxis: Patient will be on telemetry quest 5 mg twice a day for now. CODE STATUS: Full code. Admit patient to inpatient status for more than 2 nights.
[2018-10-06] MEDS: PROCHLORPERAZINE 10 MG TAB PO PRN (22:56)
[2018-10-07] MEDS: LEVOTHYROXINE 75 MCG TAB PO SCH (05:23)
[2018-10-07] MEDS: SENNOSIDES 8.6 MG TAB PO SCH (08:07)
[2018-10-07] MEDS: traMADol 50 MG TAB PO SCH ×3 (08:07→20:54)
[2018-10-07] MEDS: CYANOCOBALAMIN 500 MCG TAB PO SCH ×2 (08:07→20:50)
[2018-10-07] MEDS: FAMOTIDINE 20 MG TAB PO SCH ×2 (08:07→20:50)
[2018-10-07] MEDS: HYOSCYAMINE SULFATE 0.375 MG TAB.ER.12H PO SCH ×2 (08:07→20:50)
[2018-10-07] MEDS: APIXABAN 5 MG TAB PO SCH ×2 (08:07→20:50)
[2018-10-07] MEDS: LORATADINE 10 MG TAB PO SCH (08:07)
[2018-10-07] MEDS: PROCHLORPERAZINE 10 MG TAB PO PRN ×2 (09:04→20:50)
--- NOTE | 2018-10-07 11:08 | ECHOF ---
Referral Reason:cp MEASUREMENTS -------- HEIGHT: 162.6 cm WEIGHT: 72.6 kg BP: IVSd: 0.9 cm (0.6 - 1.1) LVIDd: 4.1 cm (3.9 - 5.3) LVPWd: 1.1 cm (0.6 - 1.1) IVSs: 1.2 cm LVIDs: 2.5 cm LVPWs: 1.8 cm FINDINGS -------- Sinus rhythm. This was a technically difficult study with suboptimal views. Limited Study Overall left ventricular systolic function is normal with, an EF between 55 - 60 %. Lumason used There is a small, generalized pericardial effusion present. CONCLUSIONS -------- 1. Sinus rhythm. 2. This was a technically difficult study with suboptimal views. 3. Limited Study 4. Lumason used 5. There is a small, generalized pericardial effusion present. OUTBOUND SALES PROFESSIONAL: Kim Vargas RDCS
[2018-10-07 11:39] LABS: Anisocytosis Slight; Basophils % (A) 0 %; Eosinophils # (A) 0.2 k/uL (0-0.7); Eosinophils % (A) 2 %; HCT 24.3 % (34.0-46.0); HGB 7.5 gm/dL (11.4-16.0); Hypochromasia Moderate; Lymphocytes # (A) 0.9 k/uL (1.0-4.8); Lymphocytes % (A) 7 %; MCH 27.1 pg (25.0-35.0); MCHC 30.9 g/dL (31.0-37.0); MCV 87.7 fL (80.0-100.0); Mean Platelet Volume 6.9; Monocytes # (A) 0.8 k/uL (0-1.0); Monocytes % (A) 6 %; Neutrophils # (A) 10.5 k/uL (1.3-7.7); Neutrophils % (A) 84 %; Platelet Count 198 k/uL (150-450); Poikilocytosis Slight; RBC 2.77 m/uL (3.80-5.40); RDW 17.8 % (11.5-15.5); WBC 12.5 k/uL (3.8-10.6)
[2018-10-07] MEDS: MAGNESIUM HYDROXIDE 2,400 MG/10 ML CUP PO SCH (12:04)
[2018-10-07] MEDS: CALCIUM CARBONATE 500 MG CHEWABLE PO SCH (12:04)
--- NOTE | 2018-10-07 12:29 | P.PN ---
Subjective This is a pleasant 58-year-old female past medical history significant for metastatic cholangiocarcinoma, bilateral pulmonary emboli and lower extremity DVT in June and long-term anticoagulation, hypothyroidism and circumflex doses. She is currently undergoing chemotherapy more for palliative purposes per the patient. We are following her for asymptomatic bradycardia with sinus pauses and junction beats. Hycosamine was added yesterday. She had only one event of bradycardia this morning around 0720 while sleeping. There was a brief pause of 1.8 seconds then a sinus beat, then a 3 second pause and then 4 junctional beats. Limited echo obtained reveals preserved left ventricular systolic function with ejection fraction 55-60% with a small generalized pericardial effusion. Blood pressure 114/72 heart rate 79 afebrile maintaining oxygen saturation on nasal cannula. Laboratory data reviewed, WBC 12.5, hemoglobin 7.5, platelets 198. Overall she states she is feeling much more alert with last weakness. She denies symptoms of chest pain, shortness of breath, dizziness or palpitations. GENERAL: This is a 58-year-old female in no apparent distress at the time of my examination. HEENT: Head is atraumatic, normocephalic. Pupils are equal, round. Sclerae anicteric. Conjunctivae are clear. Mucous membranes of the mouth are moist. Neck is supple. There is no jugular venous distention. No carotid bruit is heard. LUNGS: Clear to auscultation no wheezes, rales or rhonchi. No chest wall tenderness is noted on palpation or with deep breathing. HEART: Regular rate and rhythm without murmurs, rubs or gallops. S1 and S2 heard. EXTREMITIES: No evidence of peripheral edema and no calf tenderness noted. ASSESSMENT Significant sinus bradycardia at night while sleeping with sinus pauses and junctional beats, asymptomatic. Metastatic cholangiocarcinoma Hypothyroidism History bilateral PE and DVT on interceptor operator anticoagulation PLAN Continue current medical regimen. We will continue to follow as needed, please feel free to call with further questions or concerns. Nurse Practitioner note has been reviewed, I agree with a documented findings and plan of care. Patient was seen and examined. Objective - Vital Signs Vital signs: Vital Signs Temp 97.6 F 10/07/18 05:00 Pulse 80 10/07/18 05:00 Resp 16 10/07/18 05:00 BP 126/77 10/07/18 05:00 Pulse Ox 100 10/07/18 05:00 Intake & Output 10/06/18 10/07/18 10/07/18 18:59 06:59 18:59 Weight 72.575 kg Other: Voiding Method Toilet Toilet Toilet # Voids 2 3 - Labs CBC & Chem 7: 10/07/18 11:18 10/05/18 13:29 Labs: Abnormal Lab Results - Last 24 Hours (Table) 10/06/18 10/07/18 Range/Units 13:29 11:18 WBC 12.5 H (3.8-10.6) k/uL RBC 2.77 L (3.80-5.40) m/uL Hgb 7.5 L (11.4-16.0) gm/dL Hct 24.3 L (34.0-46.0) % MCHC 30.9 L (31.0-37.0) g/dL RDW 17.8 H (11.5-15.5) % Neutrophils # 10.5 H (1.3-7.7) k/uL Lymphocytes # 0.9 L (1.0-4.8) k/uL Free T3 pg/mL 2.5 L (2.8-5.3) pg/ml Microbiology - Last 24 Hours (Table) 10/05/18 14:43 Urine Culture - Preliminary Urine,Voided Gram Neg Bacilli
--- NOTE | 2018-10-07 14:20 | P.PN ---
Subjective Progress Note Date: 10/07/18 58-year-old female one of Dr. Thomas patient who of seen last few month ago for DVT. Patient was diagnosed with biliary tumor was diagnosed with common duct CA ended up being seen at [facility] and ended up going for Whipple surgery in successful in the middle of the surgery decided it has more involvement than intended patient was closed up and turn to oncology for chemotherapy. Patient has been on chemotherapy all along seen Dr. Duff on regular basis had her last chemo this last week. Patient presented to [facility] department on 10/05/2018 feeling severely weak tired not been able template and walk had nausea feeling with no vomiting had no energy and overall doesn't feel good had more polyuria and no dysuria slight lower abdominal discomfort. Her workup at [facility] department showed severe anemia with hemoglobin in the sevens level was close to 10 recently also her urine was very positive with multiple WBC and RBC. Patient was diagnosed with UTI and probably sepsis culture was done results still pending patient was started on empiric IV antibiotics with Rocephin 1 g daily hospitalized consult oncology and decide whether need to do blood transfusion or not based on the progression of her hemoglobin. 10/07: Patient states that she feels a little stronger from yesterday. She states she will be off chemotherapy until her next due October 14 but on hold until patient recovers from acute infection. She does have a follow-up appointment with Dr. Duff on October 12. She is complaining of constipation and is on stool softeners but milk of magnesia will be added. TSH is noted to be high but free T4 is normal. Recommend repeat TSH in 4 weeks. She has been afebrile, blood pressure 114/72, pulse ox 90% on room air. Pulse running in the 70s. Hemoglobin today is 7.5 and white count is 12.5. Anemia studies ordered. Patient is followed by cardiology for sinus bradycardia at night with sinus pauses and junctional beats, asymptomatic. Limited echocardiogram shows a small generalized pericardial effusion present, EF 55-60%. Cardiology is following on an as-needed basis. Review of Systems CONSTITUTIONAL: Well-developed. EYES: No icterus sclerae, no conjunctivitis. EARS, NOSE, MOUTH, THROAT, and FACE: No sore throat, lymphadenopathy, carotid bruits or deformity. RESPIRATORY: No SOB cough or wheezes. CARDIOVASCULAR: No CP, Palpitation, PND, Orthopnea, or angina. GASTROINTESTINAL: mild abdominal discomfort GENITOURINARY: positive UTI with burning discomfort freque. INTEGUMENT/BREAST: Negative for any muscular injury with mild osteoarthritis.. HEMATOLOGIC/LYMPHATIC: Negative for bleed or purpura. MUSCULOSKELTAL: Negative for Myalgia or arthralgia. NEURLOGICAL: No LOC, Sz or syncope, blurred vision dizziness or abnormality.. BEHAVIORAL/PSYCH: Negative. ENDOCRINE: Negative. Objective - Vital Signs Vital signs: Vital Signs Temp 97.6 F 10/07/18 05:00 Pulse 80 10/07/18 05:00 Resp 16 10/07/18 05:00 BP 126/77 10/07/18 05:00 Pulse Ox 100 10/07/18 05:00 Intake & Output 10/06/18 10/07/18 10/07/18 18:59 06:59 18:59 Weight 72.575 kg Other: Voiding Method Toilet Toilet # Voids 2 3 - Exam General Appearance: Alert, cooperative, no distress, appears stated age.with mild pale skin. Patient is resting in bed. Neck HEENT: Supple, no lymphadenopathy, no thyroid enlargement, no carotid bruits. Lungs: Clear to auscultation without crackles or wheezes no rhonchi, no deformity. Chest Wall: Chest wall normal expansion with deep inspiration no tenderness and no deformity was found on exam, no costochondral pain or discomfort. Heart: Regular rate and rhythm, S1, S2 normal, no murmur, rub or gallop. Back: Symmetric, no curvature, ROM normal, no CVA tenderness. Abdomen:soft positive bowel sounds there is an incision ty with mild tenderness in epiga Extremities: Extremities normal, atraumatic, no cyanosis or edema. Pulses: 2+ and symmetric. Skin: Skin color, texture, tugor normal, no rashes or lesions. Neurologic: Alert oriented x3 cranial nerves II through XII intact, no motor deficit, no abnormal balance or gait. - Labs CBC & Chem 7: 10/07/18 11:18 10/05/18 13:29 Labs: Abnormal Lab Results - Last 24 Hours (Table) 10/06/18 Range/Units 13:29 Free T3 pg/mL 2.5 L (2.8-5.3) pg/ml Microbiology - Last 24 Hours (Table) 10/05/18 14:43 Urine Culture - Preliminary Urine,Voided Gram Neg Bacilli Assessment and Plan Plan: 1 gram-negative UTI and sepsis: Continue Rocephin 1 g daily continue hydration and supportive care. 2 severe generalized weakness: Combination of anemia, UTI and sepsis and cancer/ chemotherapy. 3 severe anemia: Most likely iron deficiency despite the newly chemotherapy patient does not have full suppression of the bone marrow continue iron supplement and if needed iron infusion can be done hematology was consulted. Iron studies ordered. 4 history of biliary cancer: Has been on chemotherapy seen oncology on regular basis. 5 hypothyroidism: Has been on Synthroid 150 g daily. No change in levothyroxine as free T4 is normal. Recommend repeat in 4 weeks. 6 hypertension: Remain well controlled currently she is not or any medication at this point. 7 history of clotting factor and DVT of the leg patient still on eliquis 5mg a day resume medication at this point unless there is an active ongoing bleed there is no reason to hold it. 8 chronic pain syndrome: Secondary to recurrent cancer continue patient on Ultram 50 mg 3 times a day. 9 GI prophylaxis: Patient has been on Zantac 150 grams twice a day resume medication or switch to Pepcid 20 mg twice a day. 10 DVT prophylaxis: Patient will be on telemetry quest 5 mg twice a day for now. CODE STATUS: Full code. Discharge plan: Home most likely tomorrow Impression and plan of care have been directed as dictated by the signing physician. Mary Jo Mendez nurse practitioner acting as scribe for signing physician.
[2018-10-07] MEDS: ONDANSETRON 4 MG/2 ML VIAL IVP PRN (16:01)
[2018-10-07 16:30] LABS: Iron Saturation 10.86 (12.00-45.00)
--- NOTE | 2018-10-07 18:08 | P.PN ---
Subjective Progress Note Date: 10/07/18 Principal diagnosis: pancreatic adenocarcinoma Pt seen in f/u, denies fever, mild to moderate nausea, no vomiting, JOSE, mild/ moderate abd discomfort, she is constipated, denies urinary symptoms, very weak , unable to ambulate. Objective - Vital Signs Vital signs: Vital Signs Temp 98.3 F 10/07/18 12:21 Pulse 79 10/07/18 12:21 Resp 18 10/07/18 12:21 BP 114/72 10/07/18 12:21 Pulse Ox 90 L 10/07/18 12:21 Intake & Output 10/06/18 10/07/18 10/07/18 18:59 06:59 18:59 Weight 72.575 kg Other: Voiding Method Toilet Toilet Toilet # Voids 2 3 2 - Constitutional General appearance: Present: cooperative, no acute distress, obese - EENT Eyes: Present: anicteric sclerae, EOMI ENT: Present: hearing grossly normal, normal oropharynx - Respiratory Respiratory: bilateral: CTA - Cardiovascular Rhythm: regular Heart sounds: normal: S1, S2 Abnormal Heart Sounds: Absent: systolic murmur, diastolic murmur, rub, S3 Gallop , S4 Gallop, click, other - Peripheral edema leg Peripheral Edema: bilateral: Trace - Gastrointestinal General gastrointestinal: Present: distended, normal bowel sounds, soft, tenderness Localized gastrointestinal: tender: RLQ - Integumentary Integumentary: Present: pale - Neurologic Neurologic: Present: CNII-XII intact - Musculoskeletal Musculoskeletal: Present: generalized weakness - Psychiatric Psychiatric: Present: A&O x's 3, appropriate affect, intact judgment & insight - Labs CBC & Chem 7: 10/07/18 11:18 10/05/18 13:29 Labs: Abnormal Lab Results - Last 24 Hours (Table) 10/06/18 10/07/18 Range/Units 07:50 11:18 WBC 12.5 H (3.8-10.6) k/uL RBC 2.77 L (3.80-5.40) m/uL Hgb 7.5 L (11.4-16.0) gm/dL Hct 24.3 L (34.0-46.0) % MCHC 30.9 L (31.0-37.0) g/dL RDW 17.8 H (11.5-15.5) % Neutrophils # 10.5 H (1.3-7.7) k/uL Lymphocytes # 0.9 L (1.0-4.8) k/uL Iron 24 L (50-170) ug/dL TIBC 221 L (228-460) ug/dL Iron Saturation 10.86 L (12.00-45.00) Ferritin 1974.1 H (10.0-291.0) ng/mL Vitamin B12 3633.0 H (200.0-944.0) pg/mL Microbiology - Last 24 Hours (Table) 10/05/18 14:43 Urine Culture - Preliminary Urine,Voided Gram Neg Bacilli Assessment and Plan (1) Bile duct cancer Narrative/Plan: Patient is status post [address] Patient's CT CAP appears overall stable, new 6mm rt pulm nodule. This pulmonary nodule can continue to be monitored. Patient does state moderate to severe physical and hematological side effects with the Gemzar. Dose may need adjustment. We will get CT results to Dr. Duff , then he and patient can decide how they would like to proceed from here. Next treatment due 10/14. This will be on hold until patient has recovered from acute infection and had some time to rehabilitate. No change in plan from Onc standpoint at this time Current Visit: Yes Status: Acute Priority: High Code(s): C24.0 - MALIGNANT NEOPLASM OF EXTRAHEPATIC BILE DUCT SNOMED Code(s): 569614048 (2) UTI (urinary tract infection) Narrative/Plan: C&S pending, empiric antibiotics ordered, no fever Current Visit: Yes Status: Acute Priority: High Code(s): N39.0 - URINARY TRACT INFECTION, SITE NOT SPECIFIED SNOMED Code(s): 63786476 (3) Weakness Narrative/Plan: Multifactorial including chemotherapy, anemia, disease and infection. PT/OT ordered for evaluation and treatment. Dietitian consulted to optimize pt diet Current Visit: Yes Status: Acute Code(s): R53.1 - WEAKNESS SNOMED Code(s) : 87383192 (4) Anemia Narrative/Plan: Anemia of inflammation. Ferritin grossly elevated. No iron supplementation Transfuse for hemoglobin less than 7 or if symptomatic Current Visit: Yes Status: Acute Priority: High Code(s): D64.9 - ANEMIA, UNSPECIFIED SNOMED Code(s): 612824299 (5) Constipation Narrative/Plan: Multiple meds available for treatment of the same. Encouraged movement Current Visit: Yes Status: Chronic Priority: High Code(s): K59.00 - CONSTIPATION, UNSPECIFIED SNOMED Code(s): 16843975 (6) Dehydration Narrative/Plan: Pt being hydrated, her oral intake is better today Current Visit: Yes Status: Acute Priority: High Code(s): E86.0 - DEHYDRATION SNOMED Code(s): 30792048
[2018-10-08] MEDS: LEVOTHYROXINE 100 MCG TAB PO SCH (06:21)
[2018-10-08] MEDS: ONDANSETRON 4 MG/2 ML VIAL IVP PRN (06:28)
[2018-10-08] MEDS: HYOSCYAMINE SULFATE 0.375 MG TAB.ER.12H PO SCH ×2 (09:06→21:22)
[2018-10-08] MEDS: APIXABAN 5 MG TAB PO SCH ×2 (09:06→21:22)
[2018-10-08] MEDS: MAGNESIUM HYDROXIDE 2,400 MG/10 ML CUP PO SCH (09:06)
[2018-10-08] MEDS: FAMOTIDINE 20 MG TAB PO SCH ×2 (09:06→21:21)
[2018-10-08] MEDS: CYANOCOBALAMIN 500 MCG TAB PO SCH ×2 (09:06→21:21)
[2018-10-08] MEDS: LORATADINE 10 MG TAB PO SCH (09:06)
[2018-10-08] MEDS: traMADol 50 MG TAB PO SCH ×3 (09:07→21:21)
[2018-10-08] MEDS: SENNOSIDES 8.6 MG TAB PO SCH (09:07)
[2018-10-08 09:34] LABS: Anisocytosis Slight; Basophils # (A) 0.1 k/uL (0-0.2); Basophils % (A) 0 %; Eosinophils # (A) 0.2 k/uL (0-0.7); Eosinophils % (A) 1 %; HCT 26.7 % (34.0-46.0); HGB 8.2 gm/dL (11.4-16.0); Hypochromasia Moderate; Lymphocytes # (A) 1.1 k/uL (1.0-4.8); Lymphocytes % (A) 8 %; MCH 27.4 pg (25.0-35.0); MCHC 30.8 g/dL (31.0-37.0); Mean Platelet Volume 7.3; Monocytes # (A) 0.9 k/uL (0-1.0); Monocytes % (A) 6 %; Neutrophils # (A) 11.9 k/uL (1.3-7.7); Neutrophils % (A) 84 %; Platelet Count 262 k/uL (150-450); Poikilocytosis Slight; WBC 14.2 k/uL (3.8-10.6)
[2018-10-08 09:53] LABS: ALT 15 U/L (9-52); AST 12 U/L (14-36); Albumin 2.7 g/dL (3.5-5.0); Alkaline Phosphatase 137 U/L (38-126); Anion Gap 9 mmol/L; Blood Urea Nitrogen 11 mg/dL (7-17); Calcium 8.7 mg/dL (8.4-10.2); Carbon Dioxide 29 mmol/L (22-30); Chloride 95 mmol/L (98-107); Glucose 103 mg/dL (74-99); Potassium 3.9 mmol/L (3.5-5.1); Sodium 133 mmol/L (137-145); Total Bilirubin 0.7 mg/dL (0.2-1.3); Total Protein 5.9 g/dL (6.3-8.2)
[2018-10-08] MEDS ORDERED: BISACODYL 10 MG SUPP RECTAL STA (10:59)
[2018-10-08] MEDS: CALCIUM CARBONATE 500 MG CHEWABLE PO SCH (11:14)
[2018-10-08] MEDS ORDERED: NA PHOS,M-B/NA PHOS,DI-BA 133 ML ENEMA RECTAL STA (13:37)
--- NOTE | 2018-10-08 13:53 | P.DS ---
Providers Date of admission: 10/05/18 16:34 Expected date of discharge: 10/08/18 Attending physician: Santo Lutz Consults: 10/05/18 16:34 Consult Physician Routine Consulting Provider: Parul Duff Consult Reason/Comments: known Do you want consulting provider notified?: Yes 10/05/18 23:37 Consult Physician Routine Consulting Provider: Rosemarie Landaverde Consult Reason/Comments: multiple 3 second pauses Do you want consulting provider notified?: Yes, Notify in am Primary care physician: [place] [facility] Course: 58-year-old female one of Dr. Thomas patient who of seen last few month ago for DVT. Patient was diagnosed with biliary tumor was diagnosed with common duct CA ended up being seen at [facility] and ended up going for Whipple surgery in successful in the middle of the surgery decided it has more involvement than intended patient was closed up and turn to oncology for chemotherapy. Patient has been on chemotherapy all along seen Dr. Duff on regular basis had her last chemo this last week. Patient presented to [facility] department on 10/05/2018 feeling severely weak tired not been able template and walk had nausea feeling with no vomiting had no energy and overall doesn't feel good had more polyuria and no dysuria slight lower abdominal discomfort. Her workup at [facility] department showed severe anemia with hemoglobin in the sevens level was close to 10 recently also her urine was very positive with multiple WBC and RBC. Patient was diagnosed with UTI and probably sepsis culture was done results still pending patient was started on empiric IV antibiotics with Rocephin 1 g daily hospitalized consult oncology and decide whether need to do blood transfusion or not based on the progression of her hemoglobin. 10/07: Patient states that she feels a little stronger from yesterday. She states she will be off chemotherapy until her next due October 14 but on hold until patient recovers from acute infection. She does have a follow-up appointment with Dr. Duff on October 12. She is complaining of constipation and is on stool softeners but milk of magnesia will be added. TSH is noted to be high but free T4 is normal. Recommend repeat TSH in 4 weeks. She has been afebrile, blood pressure 114/72, pulse ox 90% on room air. Pulse running in the 70s. Hemoglobin today is 7.5 and white count is 12.5. Anemia studies ordered. Patient is followed by cardiology for sinus bradycardia at night with sinus pauses and junctional beats, asymptomatic. Limited echocardiogram shows a small generalized pericardial effusion present, EF 55-60%. Cardiology is following on an as-needed basis. 10/08: Patient states she is feeling a little bit better from yesterday. Repeat hemoglobin is 8.2. White count is 14.2. Sodium 133, potassium 3.9, chloride 95 , CO2 29, BUN 11, creatinine 2.44. Anemia studies came back with iron of 24, TIBC 221, iron saturation 10.86, ferritin 1974. She is complaining of constipation has not had a bowel movement since arrival despite use of milk of magnesia, prune juice and stool softeners. Dulcolax suppository given with minimal results. Fleets enema added. Urine cultures positive for Klebsiella pneumoniae and patient will be discharged on Augmentin. Discharge diagnoses: 1 Klebsiella pneumoniae UTI and sepsis 2 severe generalized weakness secondary to Combination of anemia, UTI and sepsis and cancer/chemotherapy. 3 severe anemia of inflammation 4 history of biliary cancer 5 hypothyroidism 6 hypertension 7 history of clotting factor and DVT of the leg 8 chronic pain syndrome: Secondary to recurrent cancer Discharge plan: Home most likely tomorrow Impression and plan of care have been directed as dictated by the signing physician. Mary Jo Mendez nurse practitioner acting as scribe for signing physician. Patient Condition at Discharge: Good Plan - Discharge Summary Discharge Rx Participant: No New Discharge Prescriptions: New Amoxicillin/Potassium Clav [Augmentin 875-125 Tablet] 1 tab PO Q12HR #14 tab Hyoscyamine Sulfate [Levbid] 0.375 mg PO BID #60 tab.er.12h Continue Calcium Carbonate [Calcium] 600 mg PO DAILY Apixaban [Eliquis] 5 mg PO BID tab Levothyroxine Sodium [Synthroid] 150 mcg PO DAILY@0630 #60 tab Ranitidine HCl [Zantac] 150 mg PO BID Mirtazapine [Remeron] 15 mg PO HS Sennosides/Docusate Sodium [Senna-S Laxative Tablet] 1 tab PO BID Prochlorperazine [Compazine] 10 mg PO Q6HR PRN PRN Reason: Nausea Cyanocobalamin (Vitamin B-12) [Vitamin B-12] 1,000 mg PO BID Loratadine 10 mg PO DAILY traMADol HCL [Ultram] 50 mg PO TID Discharge Medication List Calcium Carbonate [Calcium] 600 mg PO DAILY 06/13/18 [History] Apixaban [Eliquis] 5 mg PO BID tab 06/16/18 [Rx] Levothyroxine Sodium [Synthroid] 150 mcg PO DAILY@0630 #60 tab 06/16/18 [Rx] Cyanocobalamin (Vitamin B-12) [Vitamin B-12] 1,000 mg PO BID 10/05/18 [History] Loratadine 10 mg PO DAILY 10/05/18 [History] Mirtazapine [Remeron] 15 mg PO HS 10/05/18 [History] Prochlorperazine [Compazine] 10 mg PO Q6HR PRN 10/05/18 [History] Ranitidine HCl [Zantac] 150 mg PO BID 10/05/18 [History] Sennosides/Docusate Sodium [Senna-S Laxative Tablet] 1 tab PO BID 10/05/18 [ History] traMADol HCL [Ultram] 50 mg PO TID 10/05/18 [History] Amoxicillin/Potassium Clav [Augmentin 875-125 Tablet] 1 tab PO Q12HR #14 tab [Rx] Hyoscyamine Sulfate [Levbid] 0.375 mg PO BID #60 tab.er.12h 10/08/18 [Rx] Follow up Appointment(s)/Referral(s): Maxime Levin MD [STAFF PHYSICIAN] - 10/12/18 4:15 pm Dale Colorado DO [Primary Care Provider] - 1 Week (office will patient back with appt time and date) Discharge Disposition: HOME SELF-CARE
--- NOTE | 2018-10-08 18:41 | P.PN ---
Subjective Progress Note Date: 10/08/18 Principal diagnosis: pancreatic adenocarcinoma Patient seen today in follow-up. She still looks pretty pale but, she states she is feeling better, she is eating and drinking, starting to move about independently, no nausea, she has not had a bowel movement for about 5 days. Patient states she had an episode of arrhythmia, she skin to be seen by cardiology. She is not having any urinary symptoms, no bleeding Objective - Vital Signs Vital signs: Vital Signs Temp 97.6 F 10/08/18 05:00 Pulse 78 10/08/18 16:00 Resp 18 10/08/18 16:00 BP 117/75 10/08/18 05:00 Pulse Ox 95 10/08/18 05:00 Intake & Output 10/07/18 10/08/18 10/08/18 18:59 06:59 18:59 Intake Total 1070 1800 Balance 1070 1800 Intake: Oral 1070 1800 Other: Voiding Method Toilet Bedpan Toilet # Voids 2 1 2 # Bowel Movements 1 - Constitutional General appearance: Present: cooperative, no acute distress, obese - EENT Eyes: Present: anicteric sclerae, EOMI - Respiratory Respiratory: bilateral: CTA - Cardiovascular Rhythm: regular Heart sounds: normal: S1, S2 Abnormal Heart Sounds: Absent: systolic murmur, diastolic murmur, rub, S3 Gallop , S4 Gallop, click, other - Peripheral edema leg Peripheral Edema: bilateral: Trace - Gastrointestinal General gastrointestinal: Present: distended, normal bowel sounds, soft - Integumentary Integumentary: Present: pale - Neurologic Neurologic: Present: CNII-XII intact - Musculoskeletal Musculoskeletal: Present: generalized weakness - Psychiatric Psychiatric: Present: A&O x's 3, appropriate affect, intact judgment & insight - Labs CBC & Chem 7: 10/08/18 08:35 10/08/18 08:35 Labs: Abnormal Lab Results - Last 24 Hours (Table) 10/05/18 10/08/18 10/08/18 Range/Units 07:50 08:35 08:35 WBC 14.2 H (3.8-10.6) k/uL RBC 3.00 L (3.80-5.40) m/uL Hgb 8.2 L (11.4-16.0) gm/dL Hct 26.7 L (34.0-46.0) % MCHC 30.8 L (31.0-37.0) g/dL RDW 18.0 H (11.5-15.5) % Neutrophils # 11.9 H (1.3-7.7) k/uL Sodium 133 L (137-145) mmol/L Chloride 95 L (98-107) mmol/L Creatinine 0.44 L (0.52-1.04) mg/dL Glucose 103 H (74-99) mg/dL AST 12 L (14-36) U/L Alkaline Phosphatase 137 H (38-126) U/L Total Protein 5.9 L (6.3-8.2) g/dL Albumin 2.7 L (3.5-5.0) g/dL RBC Folate 1,347 H (280 - 791) ng/mL Microbiology - Last 24 Hours (Table) 10/05/18 14:43 Urine Culture - Final Urine,Voided Klebsiella pneumoniae Assessment and Plan (1) Bile duct cancer Narrative/Plan: Patient is status post [address] Patient's CT CAP appears overall stable, new 6mm rt pulm nodule. This pulmonary nodule can continue to be monitored. Patient does state moderate to severe physical and hematological side effects with the Gemzar. Dose may need adjustment. We will get CT results to Dr. Duff , then he and patient can decide how they would like to proceed from here. Next treatment due 10/14. This will be on hold until patient has recovered from acute infection and had some time to rehabilitate. F/U with Dr. Duff 10/12 at 415. No change in plan from Onc standpoint at this time Current Visit: Yes Status: Acute Priority: High Code(s): C24.0 - MALIGNANT NEOPLASM OF EXTRAHEPATIC BILE DUCT SNOMED Code(s): 930102263 (2) Weakness Current Visit: Yes Status: Acute Code(s): R53.1 - WEAKNESS SNOMED Code(s) : 60418559 (3) UTI (urinary tract infection) Narrative/Plan: Antibiotics ordered, no fever Current Visit: Yes Status: Acute Priority: High Code(s): N39.0 - URINARY TRACT INFECTION, SITE NOT SPECIFIED SNOMED Code(s): 10007778 (4) Anemia Narrative/Plan: Anemia of inflammation. Ferritin grossly elevated. No iron supplementation Transfuse for hemoglobin less than 7 or if symptomatic Current Visit: Yes Status: Chronic Priority: High Code(s): D64.9 - ANEMIA , UNSPECIFIED SNOMED Code(s): 052048561 (5) Constipation Narrative/Plan: Multiple meds available for treatment of the same. Encouraged movement Current Visit: Yes Status: Chronic Priority: High Code(s): K59.00 - CONSTIPATION, UNSPECIFIED SNOMED Code(s): 51968814 (6) Dehydration Current Visit: Yes Status: Resolved Priority: High Code(s): E86.0 - DEHYDRATION SNOMED Code(s): 94055223
[2018-10-08 20:52] VITALS: RESP 16
[2018-10-09 04:41] VITALS: BP 117/73; PULSE 78; TEMP 97.5
[2018-10-09] MEDS: LEVOTHYROXINE 100 MCG TAB PO SCH (05:52)
[2018-10-09] MEDS: CALCIUM CARBONATE 500 MG CHEWABLE PO SCH (08:43)
[2018-10-09] MEDS: LORATADINE 10 MG TAB PO SCH (08:43)
[2018-10-09] MEDS: CYANOCOBALAMIN 500 MCG TAB PO SCH (08:43)
[2018-10-09] MEDS: APIXABAN 5 MG TAB PO SCH (08:43)
[2018-10-09] MEDS: SENNOSIDES 8.6 MG TAB PO SCH (08:43)
[2018-10-09] MEDS: HYOSCYAMINE SULFATE 0.375 MG TAB.ER.12H PO SCH (08:43)
[2018-10-09] MEDS: ONDANSETRON 4 MG/2 ML VIAL IVP PRN (08:44)
[2018-10-09] MEDS: traMADol 50 MG TAB PO SCH (08:44)
[2018-10-09] MEDS: MAGNESIUM HYDROXIDE 2,400 MG/10 ML CUP PO SCH ×2 (08:46→08:49)
[2018-10-09] MEDS: FAMOTIDINE 20 MG TAB PO SCH (08:48)
[2018-10-09 10:03] LABS: Anisocytosis Slight; Basophils % (A) 0 %; Eosinophils # (A) 0.2 k/uL (0-0.7); Eosinophils % (A) 1 %; HCT 25.2 % (34.0-46.0); HGB 7.5 gm/dL (11.4-16.0); Hypochromasia Marked; Lymphocytes % (A) 8 %; MCH 26.2 pg (25.0-35.0); MCHC 29.6 g/dL (31.0-37.0); MCV 88.7 fL (80.0-100.0); Monocytes # (A) 0.8 k/uL (0-1.0); Monocytes % (A) 7 %; Neutrophils # (A) 9.8 k/uL (1.3-7.7); Neutrophils % (A) 82 %; Platelet Count 347 k/uL (150-450); Poikilocytosis Moderate; RBC 2.85 m/uL (3.80-5.40); RDW 18.8 % (11.5-15.5)
--- NOTE | 2018-10-13 09:04 | CDI ---
Documentation Clarification Form Date: 10-13-18 From: GARY Maldonado Phone: If you have question, contact Candy Castellano at [phone] M-F 8:30 am to 6pm Admit Date: 10/05/2018 4:34:00 PM Patient Name: Deena Garcia Visit Number: [id number] Discharge Date: 10/09/2018 1:05:00 PM ATTENTION: The Clinical Documentation Specialists (CDI) and [facility] Coding Staff appreciate your assistance in clarifying documentation. Please respond to the clarification below the line at the bottom and electronically sign. The CDI & [facility] Coding staff will review the response and follow-up if needed. Please note: Queries are made part of the Legal Health Record. If you have any questions, please contact the author of this message via ITS. Dr. Maxime Levin MD Conflicting documentation has been found in the medical record. According to the H&P, the patient was diagnosed with a biliary tumor was found to have common duct cancer. She went in for a Whipple but during the surgery it was found that there was more involvement than initally thought so the patient was closed up and turned to oncology for chemotherapy. There are multiple descriptions of this malignancy noted throughout the chart. Liver bile duct CA, Bile duct CA, Common duct carcinoma, Pancreatobiliary, Pancreatic adenocarcinoma, Metastatic cholangiocarcinoma Then on consults dated 10/06 its noted there is progression of the disease with peritoneal lesions and enlarging liver lesions. Clarification on the specific site of the malignancy and metastatic sites is needed for proper reporting purposes. In your opinion, what is the most clinically appropriate primary and metastatic diagnosis sites for this patient? _ All essentially mean the same thing - Carcinoma of the biliary tract is probably most specific MTDD
== END 2018-10-09 13:05 | disposition home or self-care (01) | DRG 872 ==
LOC: EC 12:57 → 3NMEDONC 16:34
PROVIDERS: ADMIT Internal Medicine Geriatric Medicine; ATTEND Internal Medicine Geriatric Medicine
PROC: 30233N1 Transfusion of Nonautologous Red Blood Cells into Peripheral Vein, Percutaneous Approach (ICD-10-PCS; principal; 2018-10-05)
DX: A41.59 Other Gram-negative sepsis (principal); N39.0 Urinary tract infection, site not specified; R18.8 Other ascites; J90 Pleural effusion, not elsewhere classified; I31.3 Pericardial effusion (noninflammatory); C24.9 Malignant neoplasm of biliary tract, unspecified; C79.9 Secondary malignant neoplasm of unspecified site; R00.1 Bradycardia, unspecified; E86.0 Dehydration; E03.9 Hypothyroidism, unspecified; G89.3 Neoplasm related pain (acute) (chronic); D50.9 Iron deficiency anemia, unspecified; I10 Essential (primary) hypertension; K59.00 Constipation, unspecified; K21.9 Gastro-esophageal reflux disease without esophagitis; D86.9 Sarcoidosis, unspecified; Z86.718 Personal history of other venous thrombosis and embolism; Z86.711 Personal history of pulmonary embolism; Z79.01 Long term (current) use of anticoagulants; Z87.891 Personal history of nicotine dependence; Z82.49 Family history of ischemic heart disease and other diseases of the circulatory system; Z79.890 Hormone replacement therapy
CPT/HCPCS: 36415; 71260; 74177; 80053; 81001; 82550; 82553; 82607; 82728; 82747; 83540; 83550; 83605; 83735; 83880; 84100; 84439; 84443; 84481; 84484; 85025; 85610; 85730; 86850; 86900; 86901; 86920; 87077; 87086; 87186; 93005; 93308; 96365; 96366; 99285

== ENCOUNTER 2018-10-27 15:48 | Emergency (ER) | payer OTHER ==
[2018-10-27 16:03] VITALS: RESP 18
[2018-10-27] MEDS ORDERED: SODIUM CHLORIDE 0.9% 1,000 ML IV STA (16:37)
--- NOTE | 2018-10-27 16:37 | ED ---
General Adult HPI - General Chief complaint: Syncope Stated complaint: Syncope Time Seen by Provider: 10/27/18 15:52 Source: EMS Limitations: no limitations - History of Present Illness Initial comments: Dictation was produced using [employer] dictation software. please excuse any grammatical, word or spelling errors. Chief Complaint: 58 yo female presents after syncopal episode. History of Present Illness: Patient is a 58-year-old female with past medical history of bile duct cancer, GERD, hypertension, psychiatric disease presents with syncopal episode. Patient is a poor historian. Hoff with this patient 's baseline or not. She is brought in by EMS. Apparently she was witnessed to have been on the ground. Patient does not remember what happened. She denies any pre-syncopal symptoms. He missed reports that patient has stable vital signs upon arrival shows a normal EKG. Patient has no complaints at this time. Family arrived at bedside later. They state they were doing a transfer from her walker to the hospital bed. Patient then became unresponsive for several seconds. She did not fall to the ground. She had a pecan grower that witnessed the event. Patient was noted to be confused after the incident. After several minutes patient's improved. History was obtained from pecan grower who was with her during the time of the event. She states she had episode where she appeared to have tonic-clonic seizure. She states she was decerebrate posturing and convulsing. Patient does not have a history of seizures. The ROS documented in this emergency department record has been reviewed and confirmed by me. Those systems with pertinent positive or negative responses have been documented in the HPI. All other systems are other negative and/or noncontributory. PHYSICAL EXAM: General Impression: Alert and oriented x3, not in acute distress HEENT: Normocephalic atraumatic, extra-ocular movements intact, pupils equal and reactive to light bilaterally, mucous membranes moist. Cardiovascular: Heart regular rate and rhythm, S1&S2 audible, no murmurs, rubs or gallops Chest: Lungs clear to auscultation bilaterally, no rhonchi, no wheeze, no rales Abdomen: Bowel sounds present, abdomen soft, non-tender, non-distended, no organomegaly Musculoskeletal: Pulses present and equal in all extremities, no peripheral edema Motor: Power 5/5 bilaterally, no focal deficits noted Neurological: CN II-XII grossly intact, no focal motor or sensory deficits noted Skin: Intact with no visualized rashes Psych: Normal affect and mood ED course: 58-year-old female presents after syncopal episode. As upon arrival are within acceptable limits.Laboratory evaluation obtained. Leukocytosis of 11.7. This appears to be patient's baseline. Hemoglobin is baseline rest of CBC is unremarkable. Patient has mild hypokalemia 3.3. Hyponatremia 133. Rest of labs grossly unremarkable. She does however have nitrates in her urine without any local uremia. Patient given ceftriaxone. There is strong clinical suspicion that patient's symptoms reflect new-onset seizure given that she was decerebrate posturing with convulsions and had a postictal period. Patient be transferred to [facility] for neurology evaluation. Case was discussed with Dr. Lutz who is agreeable. EKG interpretation: Ventricular rate 91, normal sinus rhythm, DC interval 114, QS 84, QTC 450. No DC prolongation, no QTC prolongation, no ST or T-wave changes noted. Overall, this EKG is unremarkable - Related Data Home Medications Medication Instructions Recorded Confirmed Calcium Carbonate [Calcium] 600 mg PO DAILY 06/13/18 10/27/18 Cyanocobalamin (Vitamin B-12) 1,000 mg PO BID 10/05/18 10/27/18 [Vitamin B-12] Loratadine 10 mg PO DAILY 10/05/18 10/27/18 Prochlorperazine [Compazine] 10 mg PO BID PRN 10/05/18 10/27/18 Sennosides/Docusate Sodium 1 tab PO BID 10/05/18 10/27/18 [Senna-S Laxative Tablet] traMADol HCL [Ultram] 50 mg PO TID 10/05/18 10/27/18 Previous Rx's Medication Instructions Recorded Apixaban [Eliquis] 5 mg PO BID tab 06/16/18 Levothyroxine Sodium [Synthroid] 150 mcg PO DAILY@0630 #60 tab 06/16/18 Allergies Allergy/AdvReac Type Severity Reaction Status Date / Time sulfamethoxazole Allergy Anaphylaxis Verified 10/27/18 16:14 [From Bactrim] trimethoprim [From Bactrim] Allergy Anaphylaxis Verified 10/27/18 16:14 Review of Systems ROS Statement: Those systems with pertinent positive or pertinent negative responses have been documented in the HPI. ROS Other: All systems not noted in ROS Statement are negative. Past Medical History Past Medical History: Cancer, GERD/Reflux, Hypertension, Thyroid Disorder Additional Past Medical History / Comment(s): liver bile duct CA-receiveing chemo-latest tx was 09-30-18, hemorrhoids, slight scoliosis with back pain, sarcoidosis (2009), IT band syndrome ab legs, sinus infection History of Any Multi-Drug Resistant Organisms: None Reported Past Surgical History: Cholecystectomy, Tonsillectomy, Tubal Ligation Additional Past Surgical History / Comment(s): abdominal surgery to remove tumor unable to remove at this time, liver biopsy, colonoscopies, rt chest port for chemo. Past Anesthesia/Blood Transfusion Reactions: No Reported Reaction Past Psychological History: Anxiety Smoking Status: Former smoker - Past Family History Sister(s) Family Medical History: Blood Disorder, Pulmonary Embolus Additional Family Medical History / Comment(s): MTHFR Mother Family Medical History: Blood Disorder, Deep Vein Thrombosis (DVT), Pulmonary Embolus Additional Family Medical History / Comment(s): 2 healthy children Father Family Medical History: Coronary Artery Disease (CAD) General Exam Limitations: no limitations Course Vital Signs 10/27/18 15:50 Temperature 98.8 F Pulse Rate 89 Respiratory 18 Rate Blood Pressure 154/71 O2 Sat by Pulse 93 L Oximetry Medical Decision Making - Lab Data Result diagrams: 10/27/18 16:00 10/27/18 16:00 Lab Results 10/27/18 10/27/18 10/27/18 Range/Units 16:00 16:00 17:05 WBC 11.7 H (3.8-10.6) k/uL RBC 3.26 L (3.80-5.40) m/uL Hgb 8.9 L (11.4-16.0) gm/dL Hct 28.8 L (34.0-46.0) % MCV 88.1 (80.0-100.0) fL MCH 27.1 (25.0-35.0) pg MCHC 30.8 L (31.0-37.0) g/dL RDW 18.0 H (11.5-15.5) % Plt Count 431 (150-450) k/uL Neutrophils % 86 % Lymphocytes % 8 % Monocytes % 5 % Eosinophils % 0 % Basophils % 0 % Neutrophils # 10.0 H (1.3-7.7) k/uL Lymphocytes # 0.9 L (1.0-4.8) k/uL Monocytes # 0.6 (0-1.0) k/uL Eosinophils # 0.0 (0-0.7) k/uL Basophils # 0.0 (0-0.2) k/uL Hypochromasia Marked Poikilocytosis Slight Anisocytosis Slight Sodium 133 L (137-145) mmol/L Potassium 3.3 L (3.5-5.1) mmol/L Chloride 93 L (98-107) mmol/L Carbon Dioxide 25 (22-30) mmol/L Anion Gap 15 mmol/L BUN 10 (7-17) mg/dL Creatinine 0.33 L (0.52-1.04) mg/dL Est GFR (CKD-EPI)AfAm >90 (>60 ml/min/1.73 sqM) Est GFR (CKD-EPI)NonAf >90 (>60 ml/min/1.73 sqM) Glucose 124 H (74-99) mg/dL Calcium 8.5 (8.4-10.2) mg/dL Magnesium 1.6 (1.6-2.3) mg/dL Total Bilirubin 0.7 (0.2-1.3) mg/dL AST 20 (14-36) U/L ALT 20 (9-52) U/L Alkaline Phosphatase 133 H (38-126) U/L Total Protein 6.0 L (6.3-8.2) g/dL Albumin 2.8 L (3.5-5.0) g/dL Lipase 192 (23-300) U/L Urine Color Yellow Urine Appearance Cloudy H (Clear) Urine pH 6.5 (5.0-8.0) Ur Specific Lutz 1.018 (1.001-1.035) Urine Protein 2+ H (Negative) Urine Glucose (UA) Negative (Negative) Urine Ketones 2+ H (Negative) Urine Blood Trace H (Negative) Urine Nitrite Positive H (Negative) Urine Bilirubin Negative (Negative) Urine Urobilinogen <2.0 (<2.0) mg/dL Ur Leukocyte Esterase Large H (Negative) Urine RBC 3 (0-5) /hpf Urine WBC >182 H (0-5) /hpf Ur Squamous Epith Cells 5 H (0-4) /hpf Urine Mucus Many H (None) /hpf Disposition Clinical Impression: New onset seizure Disposition: OTHER INSTITUTION NOT DEFINED Condition: Fair Referrals: Dale Colorado DO [Primary Care Provider] - 1-2 days Time of Disposition: 18:56 - Out of Hospital Transfer - Req. Specs Out of Hospital Transfer - Requested Specifics: Other Emergency Center ([facility])
[2018-10-27 17:24] LABS: Anisocytosis Slight; Basophils % (A) 0 %; Eosinophils % (A) 0 %; HCT 28.8 % (34.0-46.0); HGB 8.9 gm/dL (11.4-16.0); Hypochromasia Marked; Lymphocytes # (A) 0.9 k/uL (1.0-4.8); Lymphocytes % (A) 8 %; MCH 27.1 pg (25.0-35.0); MCHC 30.8 g/dL (31.0-37.0); MCV 88.1 fL (80.0-100.0); Mean Platelet Volume 7.8; Monocytes # (A) 0.6 k/uL (0-1.0); Monocytes % (A) 5 %; Neutrophils % (A) 86 %; Platelet Count 431 k/uL (150-450); Poikilocytosis Slight; RBC 3.26 m/uL (3.80-5.40); WBC 11.7 k/uL (3.8-10.6)
[2018-10-27 17:43] LABS: ALT 20 U/L (9-52); AST 20 U/L (14-36); Albumin 2.8 g/dL (3.5-5.0); Alkaline Phosphatase 133 U/L (38-126); Anion Gap 15 mmol/L; Blood Urea Nitrogen 10 mg/dL (7-17); Calcium 8.5 mg/dL (8.4-10.2); Carbon Dioxide 25 mmol/L (22-30); Chloride 93 mmol/L (98-107); Glucose 124 mg/dL (74-99); Lipase 192 U/L (23-300); Magnesium 1.6 mg/dL (1.6-2.3); Potassium 3.3 mmol/L (3.5-5.1); Sodium 133 mmol/L (137-145); Total Bilirubin 0.7 mg/dL (0.2-1.3)
--- NOTE | 2018-10-27 18:10 | CT ---
EXAMINATION: CT brain wo con DATE AND TIME: 10/27/2018 5:34 PM CLINICAL INDICATION: PHH; Pain TECHNIQUE: Standard departmental protocol.; 1068.4; COMPARISON: None. FINDINGS: The calvarium is intact. There is no intracranial hemorrhage. There is no intracranial mass or mass effect. No definite new intra-axial or extra-axial attenuation defect. The paranasal sinuses, middle ear cavities, and mastoid sinus air cells are clear. The orbits are unremarkable. IMPRESSION: NO ACUTE PROCESS.
--- NOTE | 2018-10-27 18:13 | XR ---
EXAMINATION: XR chest 2V DATE AND TIME: 10/27/2018 5:21 PM CLINICAL INDICATION: PHH; Pain TECHNIQUE: Departmental protocol COMPARISON: 06/13/2018 FINDINGS: Right IJ central line tip superimposed over the mid SVC. The lungs are clear. There is interval improvement in the lung inflation pattern on the right and on the left when compare d to the prior study. A large complex right pleural effusion remains, with concurrent right lower lobe atelectasis and part ial right middle lobe atelectasis. Mediastinum is similar to the prior study. On the left, a noncomplex small left pleural effusion remains. Cardiac silhouette mildly enlarged, unchanged. No acute soft tissue or skeletal findings are evident. IMPRESSION: MILD/MODERATE BILATERAL INTERVAL IMPROVEMENT IN THE OVERALL LUNG INFLATION PATTERN.
[2018-10-27 18:30] LABS: Appearance,Urine Cloudy (Clear); Bilirubin,Urine Negative (Negative); Blood,Urine Trace (Negative); Color,Urine Yellow; Glucose,Urine (UA) Negative (Negative); Ketones,Urine 2+ (Negative); Leukocyte Esterase,Urine Large (Negative); Mucus,Urine Many /hpf; Nitrite,Urine Positive (Negative); PH, Urine 6.5 (5.0-8.0); Protein,Urine 2+ (Negative); RBC,Urine 3 /hpf (0-5); Specific Gravity,Urine 1.018 (1.001-1.035); Squamous Epithelial Cell,Urine 5 /hpf (0-4); Urobilinogen,Urine <2.0 mg/dL (<2.0)
[2018-10-27] MEDS ORDERED: POTASSIUM CHLORIDE ER 20 MEQ TAB.ER PO STA (18:35)
[2018-10-27 19:10] VITALS: BP 146/68; PULSE 69; TEMP 98.6
== END 2018-10-27 19:42 | disposition short-term general hospital (02) ==
LOC: EC 15:48
DX: R56.9 Unspecified convulsions (principal); R55 Syncope and collapse; E87.6 Hypokalemia; E87.1 Hypo-osmolality and hyponatremia; D72.829 Elevated white blood cell count, unspecified; C24.0 Malignant neoplasm of extrahepatic bile duct; C22.8 Malignant neoplasm of liver, primary, unspecified as to type; Z87.891 Personal history of nicotine dependence; Z88.2 Allergy status to sulfonamides; Z79.891 Long term (current) use of opiate analgesic; Z79.899 Other long term (current) drug therapy; Z92.21 Personal history of antineoplastic chemotherapy; Z87.39 Personal history of other diseases of the musculoskeletal system and connective tissue; Z98.890 Other specified postprocedural states
CPT/HCPCS: 36415; 93005; 80053; 83690; 83735; 85025; 81001; 87086; 71046; 70450; 99285; 96365; 96361; J0696